=== PATIENT | male | born 1965 | race Caucasian/White ===

== ENCOUNTER 2024-03-31 16:48 | Outpatient (CLI) | payer MEDICARE, SELFPAY ==
[2024-03-31 15:57] LABS: Abs Immature Grans 0.01 10^3/uL (0.0-0.06); Absolute Basophil Count 0.03 10^3/uL (0.0-0.2); Absolute Eosinophil Count 0.16 10^3/uL (0.0-0.7); Absolute Lymphocyte Count 1.15 10^3/uL (1.2-3.4); Absolute Monocyte Count 0.83 10^3/uL (0.1-0.8); Absolute Neutrophil Count 4.81 10^3/uL (1.2-6.7); Basophils % 0.4 %; Eosinophils % 2.3 %; HCT 38.8 % (40.0-50.0); HGB 13.1 g/dL (13.5-17.5); Immature Grans % 0.1 %; Lymphocytes % 16.5 %; MCHC 33.8 % (32.0-36.0); MCV 92 fL (80-95); MPV 7.8 fL (8.0-11.0); Monocytes % 11.9 %; Neutrophils % 68.8 %; Platelet Count 436 10^3/uL (130-400); RBC 4.22 10^6/uL (4.36-5.78); RDW 12.3 % (11.8-14.1); RDW-SD 41.2 fL; WBC 6.99 10^3/uL (4.4-10.8)
[2024-03-31 16:17] LABS: ALT 13 U/L (16-63); AST 22 U/L (15-37); Albumin 3.2 g/dL (3.4-5.0); Alkaline Phosphatase 146 U/L (46-116); Anion Gap 4.6 mmol/L (3-11); BUN 7 mg/dL (7-18); Bilirubin, Total 0.27 mg/dL (0.2-1.0); CO2 31.4 mmol/L (21.0-32.0); CREATININE 0.9 mg/dL (0.70-1.30); Calcium 9.1 mg/dL (8.5-10.1); Chloride 97 mmol/L (98-107); FREE T4 0.84 ng/dL (0.76-1.46); Glucose 104 mg/dL (74-106); Potassium 4.5 mmol/L (3.5-5.1); Sodium 133 mmol/L (136-145); TSH 1.87 uIU/mL (0.36-3.74); Total Protein 6.9 g/dL (6.4-8.2)
--- OUTSIDE RECORDS SUMMARY | 2024-03-31 16:51 | XMS_ITS | Encounter Summary ---
Author Organization [facility] [place] [place] [address] Care Team Providers Care Conventions Assistant Name Role Phone Seema Francis Primary Care Provide r Encounter Details Date Type Department Care Team (Late Contact Info) Description 03/31/2024 3:00 PM EDT Clinical Support Hematology/Oncology at [address] [phone] Gifty Steward, JUAN MIGUEL [facility] [place] [address] Arrived Social History Tobacco Use Types Packs/Day Years Used Date Smoking Tobacco: Every Day Cigarettes 0.5 27 Smokeless Tobacco: Never Alcohol Use Standard Drinks/Week Comments Yes 42 (1 standard drink = 0.6 oz pu re alcohol) 6 beers/day IPV Inpatient Questions Answer Date Recorded Prevent Contact with Others Not on file 01/2024 Feels Threatened by Someone Not on file 01/2024 Feels Unsafe at Home Not on file 03/11/2024 Physical Signs of Abuse Present no 03/11/2024 Sex and Gender Information Value Date Recorded Sex Assigned at Not on file Gender Identity Not on file Sexual Orientation Straight 02/21/2021 6: 09 PM EDT documented as of this encounter Plan of Treatment Upcoming Encounters Date Type Department Care Team (Late Contact Info) Description 04/02/2024 1:30 PM EDT Scheduled View Only Radiation Oncology at [address] [phone] [facility] 04/02/2024 2:00 PM EDT Office Visit Radiation Oncology at [address] [phone] Deangelo Leal MD [facility] [place] [address] 04/07/2024 11:00 AM EST Office Visit Hematology/Oncology at [address] [phone] Wilman Rendon MD [address] [facility] [place] [facility] DR HEMATOLOGY & [place] [address] Genet Taylor APRN [facility] [place] [place] [address] 04/07/2024 12:30 PM EST Infusion Hematology Oncology at [address] [phone] 04/25/2024 11:00 AM EST Office [place] [phone] Nancy Garrison PA [facility] [place] [address] documented as of this encounter Visit Diagnoses Not on filedocumented in this encounter Care Teams Conventions Assistant Relationship Specialty Start Date End Date Seema Francis PA [address] [place] [phone] PCP - General Family Medicine 01/24/24 documented as of this encounter
--- OUTSIDE RECORDS SUMMARY | 2024-03-31 16:51 | XMS_ITS | Encounter Summary ---
Author Organization [facility] [place] [address] Care Team Providers Care Cloth Desizing Range Operator Chief Name Role Phone Seema Francis Primary Care Provide r Encounter Details Date Type Department Care Team (Latest Contact Info) Description 03/31/2024 Travel Social History Tobacco Use Types Packs/Day Years Used Date Smoking Tobacco: Every Day Cigarettes 0.5 27 Smokeless Tobacco: Never Alcohol Use Standard Drinks/Week Comments Yes 42 (1 standard drink = 0.6 oz pu re alcohol) 6 beers/day DH IPV Inpatient Questions Answer Date Recorded Prevent [...] Encounters Date Type Department Care Team (Late st Contact Info) Description 04/02/2024 1:30 PM EDT Scheduled View Only Radiation Oncology at [address] [phone] [facility] 04/02/2024 2:00 PM EDT Office Visit Radiation Oncology at [address] [phone] Deangelo Leal MD [facility] [place] [address] 04/07/2024 11:00 AM EST Office Visit Hematology/Oncology at [address] [phone] Wilman Rendon MD [address] [facility] HEMATOLOGY & [place] [address] Genet Taylor APRN [facility] [place] [address] 04/07/2024 12:30 PM EST Infusion Hematology Oncology at [address] [phone] 04/25/2024 11:00 AM EST Office [place] [phone] Nancy Garrison PA [facility] [place] [address] documented as of this encounter Visit Diagnoses Not on filedocumented in this encounter Care Teams Cloth Desizing Range Operator Chief Relationship Specialty Start Date End Date Seema Francis PA [address] [place] [phone] PCP - General Family Medicine 01/24/24 documented as of this encounter
--- OUTSIDE RECORDS SUMMARY | 2024-03-31 16:51 | XMS_ITS | Encounter Summary ---
[place] [address] Care Team Providers Care Marketing Business Analyst Name Role Phone Seema Francis Primary Care Provide r Reason for Referral * Diagnostic Test (Routine) - Closed Specialty Diagnoses / Procedures Referred By Contac t Referred To Contact Radiology Diagnoses Carcinoma of hypopharynx Procedures NM Agudelo PET CT Standard Plus Head and Neck NM PET CT Standard Plus Head and Neck Suman Lopez MD [facility] [place] [address] [place] [address] Referral ID Status Reason Start Date Expiration Date V isits Requested Visits Authorized [id number] Closed Specialty Service Requested 03/11/2024 09/09/2025 1 1 Reason for Visit * Diagnostic Test (Routine) - Closed Specialty Diagnoses / Procedures Referred By Contac t Referred To Contact Radiology Diagnoses Carcinoma of hypopharynx Procedures NM Agudelo PET CT Standard Plus Head and Neck NM PET CT Standard Plus Head and Neck Suman Lopez MD [facility] [place] [address] [place] [phone] Referral ID Status Reason Start Date Expiration Date V isits Requested Visits Authorized [id number] Closed Specialty Service Requested 03/11/2024 09/09/2025 1 1 Encounter Details Date Type Department Care Team (Latest Contact Info) Description 03/28/2024 2:51 PM EDT - 03/28/2024 11:59 PM EDT Hospital Encounter [place] [phone] Suman Lopez MD [facility] [place] [address] Carcinoma of hypopharynx Discharge Disposition: Home Social History Tobacco Use Types Packs/Day Years [...] PM EDT documented as of this encounter Medications at Time of Discharge Medication Sig Dispensed Refills Start Date End Date acetaminophen (Tylenol) 500 mg tablet Take 2 tablets by mouth every 6 hours as needed for Pain. 30 tablet 1 03/11/2024 timoloL (Timoptic) 0.5 % Drops Place 1 drop into both eyes daily. 09/13/2023 LORazepam (Ativan) 1 mg tablet Take 1 mg by mouth as needed (for seizures). 12/26/2023 carBAMazepine XR (Tegretol XR) 200 mg ER 12 hr tablet Take 200 mg by mouth daily. 01/15/2024 lamoTRIgine (LaMICtal) 200 mg Tablet Take 1 tablet by mouth daily. 60 tablet 11 02/22/2021 carBAMazepine (TEGretol) 200 mg Tablet Take 1 tablet by mouth 2 times daily. 60 tablet 11 02/22/2021 sod.chlorid/potassium chloride (THERMOTABS ORAL) Take 1 tablet by mouth 2 times daily. b complex vitamins Capsule Take 1 capsule by mouth twice a week. cholecalciferol, Vitamin D3, 25 mcg (1,000 unit) Capsule Take 1 capsule by mouth twice a week. oxymetazoline (Afrin) 0.05 % nasal spray 2 sprays by Nasal route 2 times daily as needed (nosebeed). [place] into each nostril. 30 mL 03/11/2024 03/31/2024 documented as of this encounter Plan of Treatment Upcoming Encounters Date Type Department Care Team (Late st Contact Info) Description 04/02/2024 1:30 PM EDT Scheduled View Only Radiation Oncology at [address] [phone] [facility] 04/02/2024 2:00 PM EDT Office Visit Radiation Oncology at [address] [phone] Deangelo Leal MD [facility] [place] [address] 04/07/2024 11:00 AM EST Office Visit Hematology/Oncology at [address] [phone] Wilman Rendon MD [address] [facility] HEMATOLOGY & [place] [address] Genet Taylor APRN [facility] [place] [address] 04/07/2024 12:30 PM EST Infusion Hematology Oncology at [address] [phone] 04/25/2024 11:00 AM EST Office [place] [phone] Nancy Garrison PA [facility] [place] [address] Pending Results Name Type Priority Associated Diagnoses Date /Time NM Agudelo PET CT Standard Plus Head and Neck Imaging Routine Carcinoma of hypopharynx 03/28/2024 2:56 PM EDT Scheduled Orders Name Type Priority Associated Diagnoses Orde r Schedule NM Agudelo PET CT Standard Plus Head and Neck Imaging Routine Carcinoma of hypopharynx 1 Occurrences starting 03/28/2024 until 03/28/2024 documented as of this encounter Visit Diagnoses Diagnosis 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, unspecified site documented in this encounter Administered Medications Inactive Administered Medications - up to 3 most recent administrations Medication Order MAR Action Action Date Dose Rate Site fludeoxyglucose (F-18) FDG injection 0-20 mCi 0-20 mCi, Intravenous, ONCE PRN, 1 dose, Starting on Sun03/28/24 at 1457, Until Sun03/28/24 at 1320, Per Protocol, Radiology Contrast, Routine Given 03/28/2024 1:20 PM EDT 14.7 mCi documented in this encounter Care Teams Marketing Business Analyst Relationship Specialty Start Date End Date Seema Francis PA [address] [place] [phone] PCP - General Family Medicine 01/24/24 documented as of this encounter
--- OUTSIDE RECORDS SUMMARY | 2024-03-31 16:51 | XMS_ITS | Encounter Summary ---
Author Organization [facility] [place] [address] Care Team Providers Care Depot Manager Name Role Phone Seema Francis Primary Care Provide r Encounter Details Date Type Department Care Team (Late Contact Info) Description 03/31/2024 Orders Only [place]ology [place] [phone] Wilman Rendon MD [address] [facility] H[place]ATOLOGY [place] [address] Tonsillar cancer Social History Tobacco Use Types Packs/Day Years [...] EDT Scheduled View Only Radiation Oncology at [address] [phone] Rad Nurse, [facility] 04/02/2024 2:00 PM EDT Office Visit Radiation Oncology at [address] [phone] Deangelo Leal MD [facility] [place] [address] 04/07/2024 11:00 AM EST Office Visit Hematology/Oncology at [address] [phone] Wilman Rendon MD [facility] [facility] DR HEMATOLOGY [place] [address] Genet Taylor APRN [facility] [place] [address] 04/07/2024 12:30 PM EST Infusion Hematology Oncology at [address] [phone] 04/25/2024 11:00 AM EST Office [place] [phone] Nancy Garrison PA [facility] [place] [address] Scheduled Orders Name Type Priority Associated Diagnoses Orde r Schedule Anatomical Pathology Additional Testing Pathology/Cytol ogy Routine Tonsillar cancer Ordered: 03/31/2024 documented as of this encounter Visit Diagnoses Diagnosis Tonsillar cancer Malignant neoplasm of tonsil documented in this encounter Care Teams Depot Manager Relationship Specialty Start Date End Date Seema Francis PA [address] [place] [phone] PCP - General Family Medicine 01/24/24 documented as of this encounter
--- OUTSIDE RECORDS SUMMARY | 2024-03-31 16:51 | XMS_ITS | Clinical Summary ---
Author Organization [facility] Address [facility] [place] [address] Care Team Providers Care Addiction Treatment Counselor Name Role Phone Seema Francis Primary Care Provide r Allergies Active Allergy Reactions Criticality Noted Date Comments Celecoxib 12/16/2020 hives Medications Medication Sig Dispensed Refills Start Date End Date Status sod.chlorid/potassi um chloride (THERMOTABS ORAL) Take 1 tablet by mouth 2 times daily. Active b complex vitamins Capsule Take 1 capsule by mouth twice a week. Active cholecalciferol, Vitamin D3, 25 mcg (1,000 unit) Capsule Take 1 capsule by mouth twice a week. Active lamoTRIgine (LaMICtal) 200 mg Tablet Take 1 tablet by mouth daily. 60 tablet 11 02/22/2021 Active carBAMazepine (TEGretol) 200 mg Tablet Take 1 tablet by mouth 2 times daily. 60 tablet 11 02/22/2021 Active timoloL (Timoptic) 0.5 % Drops Place 1 drop into both eyes daily. 09/13/2023 Active LORazepam (Ativan) 1 mg tablet Take 1 mg by mouth as needed (for seizures). 12/26/2023 Active carBAMazepine XR (Tegretol XR) 200 mg ER 12 hr tablet Take 200 mg by mouth daily. 01/15/2024 Active acetaminophen (Tylenol) 500 mg tablet Take 2 tablets by mouth every 6 hours as needed for Pain. 30 tablet 1 03/11/2024 Active Additional Information Patient taking differently: 500 mgOralDAILY, Reported on 03/31/2024 prochlorperazine (Compazine) 10 mg tablet Take 1 tablet by mouth every 6 hours as needed for Nausea. 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 Depression 12/21/2020 Chronic back pain 12/21/2020 Overview (12/21/2020): On disability Sciatica of right side 12/21/2020 Alcohol abuse 12/21/2020 Overview (12/21/2020): Still drinking Basal cell adenocarcinoma 12/21/2020 Encounters Date Type Department Care Team Description 03/31/2024 3:00 PM EDT Clinical Support Hematology/Oncolo gy at [address] [phone] Arrived 03/31/2024 2:00 PM EDT Office Visit Hematology/Oncolo gy at [address] [phone] Wilman Rendon MD 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/2024 Orders Only Hematology [place] [address] Wilman Rendon MD 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/2024 Travel 03/28/2024 2:51 PM EDT - 03/28/2024 11:59 PM EDT Hospital Encounter [place] [address] Suman Lopez MD Carcinoma of hypopharynx Discharge Disposition: Home 03/19/2024 2:30 PM EDT Office [place] [phone] Suman Lopez MD Squamous cell cancer of hypopharynx (Primary Dx); Orbital mass 03/19/2024 10:45 AM EDT - 03/19/2024 11:59 PM EDT Hospital [place] [phone] Suman Lopez MD Carcinoma of hypopharynx Discharge Disposition: Home 03/19/2024 Multidisciplinary Ca re Committee [place] [address] Leonarda Larry MD 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 03/19/2024 Travel 03/19/2024 Orders [place] [phone] Leonarda Larry MD 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 03/11/2024 11:17 AM EDT Anesthesia Event [place] [address] Sohn Stevenson MD Nelson, Mary E 03/11/2024 10:52 AM EDT - 03/11/2024 1:37 PM EDT Surgery [place] [address] Suman Lopez MD NASAL, SINUS ENDOSCOPY, TOTAL ETHMOIDECTOMY (WRVU 5.75) 03/11/2024 8:29 AM EDT - 03/11/2024 2:45 PM EDT Hospital Encounter [place] [address] Suman Lopez MD Orbital mass; Mass of sinus; Chronic maxillary sinusitis; Chronic ethmoidal sinusitis; Lesion of soft palate Discharge Disposition: Home 03/11/2024 Interpretation Only Radiology [address] [place] [address] [place] [id number] Unknown 03/11/2024 Orders [place] [address] Suman Lopez MD Carcinoma of hypopharynx 01/24/2024 Telephone [place] [address] Rin Rockwell 01/16/2024 2:00 PM EDT Office [place] [address] Suman Lopez MD Orbital mass (Primary Dx); Mass of sinus; Chronic maxillary sinusitis; Chronic ethmoidal sinusitis; Lesion of soft palate 01/16/2024 12:30 PM EDT Office Visit Ophthalmology at [place] [address] Melba Dillard MD Orbital mass; Diplopia; Maxillary sinus mass 01/16/2024 Travel 01/14/2024 11:55 AM EDT Ancillary Procedure Radiology Library at [facility] [place] [address] Suman Lopez MD Orbital mass; Mass of sinus 01/12/2024 Notes Only Otolaryngology at [place] [address] Leonarda Larry MD 01/11/2024 10:45 PM EDT Ancillary Procedure Radiology Library at [facility] [address] [place] [address] Jaylin Chapa MD 01/11/2024 2:50 PM EDT Ancillary Procedure Radiology Library at [facility] [address] [place] [address] Jaylin Chapa MD 01/11/2024 2:45 PM EDT Ancillary Procedure Radiology Library at [facility] [address] [place] [address] Jaylin Chapa MD 01/11/2024 Interpretation Only Radiology Library at [facility] [address] [place] [address] Jaylin Chapa MD 01/11/2024 Interpretation Only Radiology Library at [facility] [address] [place] [address] Jaylin Chapa MD from Last 3 Months Family History Medical History Relation Comments Glaucoma Father Macular Degeneration Neg Hx Retinal Detachment Neg Hx Relation Status Comments Father Social History Tobacco Use Types Packs/Day Years Used Date Smoking Tobacco: Every Day Cigarettes 0.5 27 Smokeless Tobacco: Never Tobacco Cessation:Ready to Q uit: Not Asked; Counseling Given: Not Answered Alcohol Use Standard Drinks/Week Comments Yes 42 [...] Orientation Straight 02/21/2021 6: 09 PM EDT Last Filed Vital Signs Vital Sign Reading Time Taken Comments Blood Pressure 115/79 03/31/2024 1:27 PM EDT Pulse 74 03/31/2024 1:27 PM EDT Temperature 36.7 ??C (98 ??F) 03/31/2024 1:27 PM EDT Respiratory Rate 16 03/31/2024 1:27 PM EDT Oxygen Saturation 100% 03/31/2024 1:27 PM EDT Inhaled Oxygen Concentration - - Weight 58.5 kg (129 lb) 03/31/2024 1:27 PM EDT Height 170.8 cm (5' 7.25) 03/31/2024 1:27 PM ED T Body Mass Index 20.05 03/31/2024 1:27 PM EDT Plan of Treatment Upcoming Encounters Date Type Department Care Team (Late st Contact Info) Description 04/02/2024 1:30 PM EDT Scheduled View Only Radiation Oncology at [address] [phone] [place] [facility] 04/02/2024 2:00 PM EDT Office Visit Radiation Oncology at [address] [phone] Deangelo Leal MD [facility] [place] [address] 04/07/2024 11:00 AM EST Office Visit Hematology/Oncology at [address] [phone] Wilman Rendon MD [facility] HEMATOLOGY [place] [address] Genet Taylor APRN [facility] [place] [address] 04/07/2024 12:30 PM EST Infusion Hematology Oncology at [address] [phone] 04/25/2024 11:00 AM EST Office [place] [address] Nancy Garrison, SCOTTY [facility] [place] [address] Health Maintenance Due Date Last Done Comments CT Colonography 1965 Colonoscopy 1965 Colorectal Cancer Screening 1965 FIT DNA 1965 FIT 1965 Sigmoidoscopy (10 year) with FIT yearly 1965 Sigmoidoscopy 1965 Pneumococcal Vaccine: At-Risk 5-64yrs (1 of 2 - PCV) 1 06/30/1970 HIV screen 1983 Hepatitis C Screening 1983 Lipid Screening 1983 Hepatitis B vaccine (0-59 yrs) (1) 1984 Tetanus/Diphtheria/Pertussis Vaccines (1 - Tdap) 04/30 Zoster vaccine (1 of 2) 2015 Advance Directive 2020 Covid-19 Vaccine (1 - season) 2024 Influenza (Flu) vaccine (1 o f 1 - Influenza standard series) 02/03/2024 Procedures Procedure Name Priority Date/Time Associated Diagnosis Comments CT CHEST W CONTRAST Routine 03/19/2024 1 1:47 AM EDT Carcinoma of hypopharynx CT NECK SOFT TISSUE W CONTRAST Routine 03/19/2024 11:47 AM EDT Carcinoma of hypopharynx CHROMOSOME ANALYSIS, ACQUIRED ([facility]) Routine 03/11/2024 2:40 PM EDT NASAL, SINUS ENDOSCOPY, REMOVE TISSUE MAXILLARY SINUS Routine 03/11/2024 1:21 PM EDT Orbital mass Mass of sinus Chronic maxillary sinusitis Chronic ethmoidal sinusitis Lesion of soft palate NASAL, SINUS ENDOSCOPY, TOTAL ETHMOIDECTOMY Routine 03/11/2024 1:21 PM EDT Orbital mass Mass of sinus Chronic maxillary sinusitis Chronic ethmoidal sinusitis Lesion of soft palate HPV DNA GENOTYPING (HIGH RISK) Routine 03/11/2024 1:10 PM EDT Orbital mass Mass of sinus Chronic maxillary sinusitis Chronic ethmoidal sinusitis Lesion of soft palate IMMUNOPHENOTYPING FLOW CYTOMETRY (TISSUE-LAB ONLY) Routine 03/11/2024 1:10 PM EDT Orbital mass Mass of sinus Chronic maxillary sinusitis Chronic ethmoidal sinusitis Lesion of soft palate SURGICAL PATHOLOGY Routine 03/11/2024 11 :44 AM EDT Orbital mass Mass of sinus Chronic maxillary sinusitis Chronic ethmoidal sinusitis Lesion of soft palate Nasal/Sinus Endoscopy Max Antrost W/Rmvl Tiss Max Sinus ([id number]) Yes 03/11/2024 11:18 AM EDT Orbital mass Mass of sinus Chronic maxillary sinusitis Chronic ethmoidal sinusitis Lesion of soft palate MODIFIER,STEALTH 2,KINEVO Yes 2023 11:18 AM EDT Orbital mass Mass of sinus Chronic maxillary sinusitis Chronic ethmoidal sinusitis Lesion of soft palate Stereotactic Cptr Asstd Px Cranial, Extradural ([id number]) Yes 03/11/2024 11:18 AM EDT Orbital mass Mass of sinus Chronic maxillary sinusitis Chronic ethmoidal sinusitis Lesion of soft palate Laryngoscopy Direct Operative W/Biopsy ([id number]) Yes 03/11/2024 11:18 AM EDT Orbital mass Mass of sinus Chronic maxillary sinusitis Chronic ethmoidal sinusitis Lesion of soft palate Nasal Scopy, Remv Totl Ethmoid ([id number]) Yes 03/11/2024 11:18 AM EDT Orbital mass Mass of sinus Chronic maxillary sinusitis Chronic ethmoidal sinusitis Lesion of soft palate U1RNP ANTIBODY Routine 03/11/2024 10:51 AM EDT Orbital mass SMPAULA) ANTIBODY Routine 03/11/2024 10 :51 AM EDT Orbital mass SCL-70 ANTIBODY (DH) Routine 03/11/2024 10:51 AM EDT Orbital mass SS-B/LA ANTIBODY (DH) Routine 03/11/2024 10:51 AM EDT Orbital mass SS-A/RO ANTIBODY (DH) Routine 03/11/2024 10:51 AM EDT Orbital mass JOAN 1 ANTIBODY Routine 03/11/2024 10:51 AM EDT Orbital mass CENTROMERE ANTIBODY (DH) Routine 024 10:51 AM EDT Orbital mass IGG SUBCLASSES Routine 03/11/2024 10:51 AM EDT Orbital mass CRP, ACUTE INFLAMMATION Routine 03/11/20 24 10:51 AM EDT Orbital mass SEDIMENTATION RATE Routine 03/11/2024 10 :51 AM EDT Orbital mass CYTOPLASMIC NEUTROPHILIC AB Routine 03/11/2024 10:51 AM EDT Orbital mass MYELOPEROXIDASE AB Routine 03/11/2024 10 :51 AM EDT Orbital mass PROTEINASE-3 ANTIBODY Routine 03/11/2024 10:51 AM EDT Orbital mass RHEUMATOID FACTOR, QUANT Routine 024 10:51 AM EDT Orbital mass ANTINUCLEAR ANTIBODY SCREEN (DH) Routine 03/11/2024 10:51 AM EDT Orbital mass STEREOTACTIC COMPUTER-ASSTD NAVIGATIONAL CRANIAL EXTRADURAL Routine 03/11/2024 10:14 AM EDT Orbital mass Mass of sinus Chronic maxillary sinusitis Chronic ethmoidal sinusitis Lesion of soft palate LARYNGOSCOPY, DIRECT, OPERATIVE, WITH BIOPSY Routine 03/11/2024 10:14 AM EDT Orbital mass Mass of sinus Chronic maxillary sinusitis Chronic ethmoidal sinusitis Lesion of soft palate DH OR ENDOSCOPY Routine 03/11/2024 REQUEST FOR 2ND READ MR HEAD Routine 01/14/2024 11:40 AM EDT Orbital mass Mass of sinus FILM LIBRARY STORAGE ONLY MR HEAD Routine 01/11/2024 10:41 PM EDT FILM LIBRARY STORAGE ONLY CT HEAD Routine 01/11/2024 2:50 PM EDT FILM LIBRARY STORAGE ONLY CT HEAD Routine 01/11/2024 2:45 PM EDT from Last 3 Months Results * CT Chest w Contrast (03/19/2024 11:47 AM EDT) WORKSTATION ID [id number] RAD Anatomical Region Laterality Modality Chest Computed Tomogra phy Impressions 03/19/2024 3:21 PM EDT No metastatic disease in the chest. I have personally reviewed the image(s) and the resident's interpretation and agree with the findings, Luz Harris MD at 03/19/2024 3:21 PM Thank you for letting us participate in the care of this patient. ??If you are a health care provider and have any questions regarding this report, please contact the number below. ??For patients who have questions please contact the health continuum of care manager that requested your imaging first. ? 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 Thin-section reconstructions as well as coronal and sagittal reformatted images were generated. COMPARISON: None available. FINDINGS: Pulmonary parenchyma: The lungs are well-inflated. No nodules, airspace or interstitial opacity Airways: No central endobronchial abnormality. Pleura: No effusion. Lymph nodes: No lymphadenopathy. 5 mm superior mediastinal lymph node is not pathologic based on size criteria. Heart and vasculature: Normal size of the heart. No pericardial effusion. Normal caliber of the thoracic aorta. Mild aortic valve calcifications. Other mediastinal structures: Small hiatal hernia. Upper abdomen: Subcentimeter segment 2 hypoattenuating hepatic lesion is too small to characterize. Skeletal structures: No acute or suspicious osseous lesions. Multilevel degenerative changes of the visualized spine with vacuum phenomenon, Schmorl's nodes and disc height loss. There are multiple old healed bilateral rib fractures. Procedure Note Luz Harris MD - 03/19/2024 EXAMINATION: CT CHEST W CONTRAST CLINICAL HISTORY: suspected hypopharyngeal SCC with celklrixvqqkwysW02.9, Malignant neoplasm of hypopharynx, unspecified TECHNIQUE: Helical CT of the chest after the intravenous administration of110.0 ml of OMNIPAQUE 350.00 mg/ml. Thin-section reconstructions as well ascoronal and sagittal reformatted images were generated. COMPARISON: None available. FINDINGS: Pulmonary parenchyma: The lungs are well-inflated. No nodules, airspaceor interstitial opacity Airways: No central endobronchial abnormality. Pleura: No effusion. Lymph nodes: No lymphadenopathy. 5 mm superior mediastinal lymph node isnot pathologic based on size criteria. Heart and vasculature: Normal size of the heart. No pericardial effusion.Normal caliber of the thoracic aorta. Mild aortic valve calcifications. Other mediastinal structures: Small hiatal hernia. Upper abdomen: Subcentimeter segment 2 hypoattenuating hepatic lesion istoo small to characterize. Skeletal structures: No acute or suspicious osseous lesions. Multilevel degenerative changes of the visualized spine with vacuum phenomenon,Schmorl's nodes and disc height loss. There are multiple old healed bilateral rib fractures. IMPRESSION No metastatic disease in the chest. I have personally reviewed the image(s) and the resident's interpretationand agree with the findings, Luz Harris MD at 03/19/2024 3:21 PM Thank you for letting us participate in the care of this patient. If youare a health care provider and have any questions regarding this report,please contact the number below. For patients who have questions please contactthe health continuum of care manager that requested your imaging first. Suman Lopez MD IMG CT ORDERABLES * CT Neck Soft Tissue w Contrast (Generic) (03/19/2024 11:47 AM EDT) WORKSTATION ID [id number] RAD Anatomical Region Laterality Modality Neck, Head Computed Tomogra phy Impressions 03/19/2024 8:22 PM EDT 1. ??Bilateral lymphadenopathy at the levels 1 and 2 and 3 errol stations with a right level 3/4 matted lymph node mass with extracapsular extension. 2. ??A right retropharyngeal lymph node versus endophytic right tonsillar tumor appears to encase the right internal carotid artery. 3. ??Mass involving the posterior left alveolar maxillary ridge extends into the maxillary sinus and left buccal space with posterior extension into the left retromolar trigone. 4. ??4.0 cm endophytic left tonsillar tumor appears to be contiguous with the mass described above involving the left buccal space. Infiltration into the medial pterygoid muscle is noted. 5. ??Separate mass involving the left nasal cavity and ethmoids with partial destruction of the anterior cranial fossa and spread into the adjacent orbit. 6. ??Hypopharyngeal mass is not identified on this study. 7. ??MRI of the face and neck is recommended for further characterization of the above described tumors. A PET/CT scan is also indicated. I have personally reviewed the image(s) and the resident's interpretation and agree with the findings, Kush Solis at 03/19/2024 8:22 PM Thank you for letting us participate in the care of this patient. ??If you are a health care provider and have any questions regarding this report, please contact the number below. ??For patients who have questions please contact the health continuum of care manager that requested your imaging first. ? 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 COMPARISON: CT head 01/11/2024 FINDINGS: Extensive bilateral lymphadenopathy is identified at the level 1B, levels 2A/B the and level 3. Some of these lymph nodes demonstrate central necrosis. The level 1B lymph nodes measure up to 2.1 cm in size. A left level 2A lymph node measures up to 2.1 cm in size and a matted lymph node mass spanning the right level 3/4 errol station measures up to 2.8 cm in long axis on the axial plane. This matted right level 3/4 errol mass has irregular shaggy margins indicating extracapsular extension. Abutment but no encasement of the common carotid artery. A right retropharyngeal errol mass versus endophytic tonsillar tumor at the C2 level appears to encase the right cervical internal carotid artery. An osseous destructive mass involving the left posterior maxillary alveolar ridge involves the pterygoid plate and posterior lateral wall of the left maxillary sinus with spread of tumor into the adjacent buccal space as well as the left retromolar trigone. The mandible is intact. This mass is contiguous with a large endophytic mass at the level of the left tonsillar pillar measuring up to 4.0 cm in size on the coronal plane. Infiltration into the medial pterygoid musculature is identified. Parapharyngeal fat is effaced. There is likely adjacent spread into the soft palate. The tongue base is spared. No hypopharyngeal mass is identified. The lung apices are clear. Mass in the left nasal cavity extends into the ethmoid air cells and partially destroys the anterior cranial fossa. Tumor spreads into the adjacent inferomedial orbit with intra and extraconal involvement. The inferior medial rectus muscles are encased.. This is more fully evaluated on the outside MRI of the face dated 01/11/2024. Abnormal soft tissue attenuation present within the left pterygopalatine palatine fossa. 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 COMPARISON: CT head 01/11/2024 FINDINGS: Extensive bilateral lymphadenopathy is identified at the qqoiw9I, levels 2A/B the and level 3. Some of these lymph nodes demonstratecentral necrosis. The level 1B lymph nodes measure up to 2.1 cm in size. A left level 2Alymph node measures up to 2.1 cm in size and a matted lymph node mass spanningthe right level 3/4 errol station measures up to 2.8 cm in long axis on theaxial plane. This matted right level 3/4 errol mass has irregular shaggymargins indicating extracapsular extension. Abutment but no encasement of thecommon carotid artery. A right retropharyngeal errol mass versus endophytic tonsillar tumor atthe C2 level appears to encase the right cervical internal carotid artery. An osseous destructive mass involving the left posterior maxillaryalveolar ridge involves the pterygoid plate and posterior lateral wall of theleft maxillary sinus with spread of tumor into the adjacent buccal space aswell as the left retromolar trigone. The mandible is intact. This mass iscontiguous with a large endophytic mass at the level of the left tonsillar pillarmeasuring up to 4.0 cm in size on the coronal plane. Infiltration into the medial pterygoid musculature is identified. Parapharyngeal fat is effaced. Thereis likely adjacent spread into the soft palate. The tongue base is spared. No hypopharyngeal mass is identified. The lung apices are clear. Mass in the left nasal cavity extends into the ethmoid air cells andpartially destroys the anterior cranial fossa. Tumor spreads into the adjacent inferomedial orbit with intra and extraconal involvement. The inferiormedial rectus muscles are encased.. This is more fully evaluated on the outsideMRI of the face dated 01/11/2024. Abnormal soft tissue attenuation present withinthe left pterygopalatine palatine fossa. IMPRESSION 1. Bilateral lymphadenopathy at the levels 1 and 2 and 3 errol stationswith a right level 3/4 matted lymph node mass with extracapsular extension. 2. A right retropharyngeal lymph node versus endophytic right tonsillartumor appears to encase the right internal carotid artery. 3. Mass involving the posterior left alveolar maxillary ridge extendsinto the maxillary sinus and left buccal space with posterior extension into theleft retromolar trigone. 4. 4.0 cm endophytic left tonsillar tumor appears to be contiguous withthe mass described above involving the left buccal space. Infiltration intothe medial pterygoid muscle is noted. 5. Separate mass involving the left nasal cavity and ethmoids withpartial destruction of the anterior cranial fossa and spread into the adjacentorbit. 6. Hypopharyngeal mass is not identified on this study. 7. MRI of the face and neck is recommended for further characterizationof the above described tumors. A PET/CT scan is also indicated. I have personally reviewed the image(s) and the resident's interpretationand agree with the findings, Kush Solis at 03/19/2024 8:22 PM Thank you for letting us participate in the care of this patient. If youare a health care provider and have any questions regarding this report,please contact the number below. For patients who have questions please contactthe health continuum of care manager that requested your imaging first. Suman Lopez MD IMG CT ORDERABLES * Chromosome Analysis, Acquired ([facility]) (03/11/2024 2:40 PM EDT) Chromosome, Leukemia/Lymph kelley ([facility]) See Scanned Result 03/20/2024 8:35 AM EDT [facility] Specimen Condition ([facility]) 03/20/2024 8:35 AM EDT [facility] Tissue (Solid Tumor) Non Blood Collection / Unknown 03/11/2024 2:40 PM EDT 03/11/2024 2:41 PM EDT Suman Lopez MD LAB SEND OUT ORDERAB LES REF [facility] [address] [place] [address] * Immunophenotyping Flow Cytometry (03/11/2024 1:10 PM EDT) Final Diagnosis - Too few events detected for meaningful immunophenotypic analysis(see Comment). 03/12/2024 2:01 PM EDT [facility] Signing Pathologist This result has been reviewed by Jose Alfredo Mireles DO on 03/12/24 at 2:01 PM. 03/12/2024 2:01 PM EDT [facility] Discussion Too few events were detected (<100 viable cells of interest, based on 3.9% viable cells) for meaningful analysis. Correlation with morphologic interpretation of the biopsy is recommended. 03/12/2024 2:01 PM EDT [facility] Lymphocyte % 29.7 % 03/12/2024 2:01 PM EDT [facility] CD3+ % 93.0 % 03/12/2024 2:01 PM EDT [facility] CD19+ % 0.0 % 03/12/2024 2:01 PM EDT [facility] CD56+ % 0.0 % 03/12/2024 2:01 PM EDT [facility] B-Cell:T-Cell Ratio 0.0 03/12/2024 2:01 PM EDT [facility] CD4:CD8 Ratio 0.0 03/12/2024 2:01 PM EDT [facility] LABORATORY Cell Viability % 3.9 % 03/12/2024 2:01 PM EDT [facility] Specimen Processing Cells for immunophenotypic analysis were derived from tissue. The following markers were assessed: CD2, CD3, CD4, CD5, CD7, CD8, CD10, CD19, CD45, CD56, kappa light chain, and lambda light chain. 03/12/2024 2:01 PM EDT [facility] Disclaimer Flow analysis is an ancillary study. A definite diagnosis requires correlation with the morphologic features of this process and if necessary, correlation with other ancillary studies like immunohistochemist ry, enzyme cytochemistry and/or cyto/molecular genetics. This test was developed and its performance characteristics determined by the Clinical Flow Cytometry Laboratory at [facility]. It has not been cleared or approved by the U.S. Food and Drug Administration. The FDA has determined that such clearance or approval is not necessary. This test is used for clinical purposes. It should not be regarded as investigational or for research. This laboratory is certified under the Clinical Laboratory Improvement Act of 1988 (CLIA) as qualified to perform high complexity clinical laboratory testing. 03/12/2024 2:01 PM EDT [facility] Clinical Information Orbital mass with sinonasal extension. 03/12/2024 2:01 PM EDT [facility] Tissue 03/11/2024 1:10 PM EDT 03/11/2024 1:25 PM EDT Suman Lopez MD HEMATOLOGY ORDERABLE S [facility] [place] [address] * HPV DNA Genotyping (High Risk) (03/11/2024 1:10 PM EDT) Indication for Study Invasive poorly differentiated squamous cell carcinoma 03/26/2024 5:39 PM EDT [facility] Specimen Tissue Case/Block ID [id number] 03/26/2024 5:39 PM [facility] HPV HR Genotype Result Negative for all high-risk HPV genotypes analyzed 03/26/2024 5:39 PM [facility] HPV HR Genotype Interpretation Results indicate that the submitted tissue contained none of the 14 HPV high-risk genotypes detected by this assay. Not all high-risk HPV genotypes are included in this test. 03/26/2024 5:39 PM [facility] HPV HR Genotype Methods Used Highly purified genomic DNA was extracted from a formalin fixed paraffin embedded tissue section after lysing of the cells. (Of note: in instances where the result was QNS, Genomic DNA was not analyzed or failed analysis.) HPV genotyping was performed using the StatAce MeltPro High-Risk HPV Genotyping Test that assays for the qualitative detection of 14 high-risk HPV genotypes in a variety of tissues. This test uses PCR followed by high-resolution melting curve analysis for the detection of 14 high-risk HPV types (16, 18, 31, 33, 35, 39, 45, 51, 52, 56, 58, 59, 66, and 68). High-risk HPV subtypes are differentiated in one single reaction with a sensitivity of 200 copies per reaction. LIMITATIONS AND DISCLAIMERS: Although unlikely, rare variants (known or unknown) have the potential to interfere with the performance of this test, producing false negative or false positive results. When genotyping results are not consistent with other clinical observations or test results, additional testing should be considered. 03/26/2024 5:39 PM [facility] Disclaimer This test was developed and its performance characteristics determined by The [facility] ([facility]) at [facility], as required by the Clinical Laboratory Improvement Amendments (CLIA'88) regulations. It has not been cleared or approved for specific uses by the U.S. Food and Drug Administration (FDA). The FDA has determined that such clearance or approval is not necessary. This test is used for clinical purposes. It should not be regarded as investigational or for research. Pursuant to the requirements of CLIA'88, this laboratory has established and verified the test's accuracy and precision. 03/26/2024 5:39 PM [facility] Tissue LEFT MAXILLARY SINUS STRUCTURE / Unknown 03/11/2024 1:10 PM EDT 03/18/2024 10:28 AM EDT Suman Lopez MD MOLECULAR ORDERABLES Performing Organization Address [facility]/State/ZIP Co de Phone Number [facility] [place] [address] * (ABNORMAL) Surgical Pathology (03/11/2024 11:44 AM EDT) Case Report Surgical Pathology Report ? Case: [id number] ? Authorizing Provider: ??Suman Lopez MD ? Collected: ? 03/11/2024 1144 ? Ordering Location: ? Main Operating Room [facility] ?? Received: ?03/11/2024 1320 ? [facility] ([facility] ? Hospital ? Pathologist: ? Michelle Trejo MD ? Specimens: ?? A) - Pharynx, Right medial hypopharyngeal mass ? B) - Pharynx, Right posterior pharyngeal wall ? C) - Soft Palate, Midline ? D) - Tonsil, Right ? E) - Sinus Contents, Left ? F) - Sinus, Maxillary, Left, Left maxillary sinus contents ? 03/18/2024 8:48 AM EDT [facility] Final Diagnosis A. Pharynx, right medial hypopharyngeal mass, biopsy: - Invasive squamous cell carcinoma, focally keratinizing, poorly differentiated. B. Pharynx, right posterior pharyngeal wall, biopsy: - Moderate keratinizing squamous dysplasia. C. Soft palate, midline, biopsy: - Severe squamous dysplasia. D. Tonsil, right, biopsy: - Invasive squamous cell carcinoma, [id number], keratinizing type. - Lymphovascular space invasion is present. E. Sinus contents, left, biopsy: - Invasive poorly differentiated squamous cell carcinoma. F. Sinus contexts, left maxillary, biopsy: - Invasive poorly differentiated squamous cell carcinoma. 03/18/2024 8:48 AM [facility] Discussion The tumor shows a range of morphologic features in the above specimens, ranging from moderately differentiated and keratinizing to morphologically poorly differentiated with clear cell features. Given the presence of p16 reactivity, genotyping for high-risk HPV is pending. 03/18/2024 8:48 AM [facility] Additional Studies Task ID IHC/Special Stains Result D1-2 p16 Positive E2-2 CK5 Positive E2-3 p40 Positive E2-4 NUT Negative 03/18/2024 8:48 AM [facility] Disclaimer(s) Formalin-fixed, paraffin-embedded tissue sections are studied using the polymer technique with appropriate positive and negative controls. These IHC studies provide the pathologist with adjunctive diagnostic information. Antibody specificity has been verified by testing antibodies on a series of in-house tissues with known immunohistochemical performance characteristics. The clinical interpretation of any antibody positive staining or its absence is evaluated within the context of clinical presentation, morphology, histopathological criteria and other diagnostic tests. 03/18/2024 8:48 AM [facility] Clinical Information A. Pharynx, Right medial hypopharyngeal mass Mass B. Pharynx, Right posterior pharyngeal wall Mass C. Soft Palate, Midline, Mass D. Tonsil, Right, Mass E. Sinus Contents, Left, Mass F. Sinus, Maxillary, Left, Left maxillary sinus contents Mass Rule out malignancy Left maxillary sinus contents for lymphoma workup 03/18/2024 8:48 AM [facility] Gross Description A. Pharynx, Right medial hypopharyngeal mass. A - Labeled/Fixative: Right medial hypopharyngeal mass, saline. Quantity/Size: Two, 0.6 cm. Tissue Description: Soft, white tissues. Sections/Processing: Submitted in toto in 1 cassette labeled A1. sns 03/11/2024 B. Pharynx, Right posterior pharyngeal wall. B - Labeled/Fixative: Right posterior pharyngeal wall, saline. Quantity/Size: Single, 0 cm. Tissue Description: Soft, pink-white tissue. Sections/Processing: Submitted in toto in 1 cassette labeled B1. sns C. Soft Palate, Midline, . C - Labeled/Fixative: Soft palate, midline, saline. Quantity/Size: Single, 0.5 cm. Tissue Description: Soft, white tissue. Sections/Processing: Submitted in toto in 1 cassette labeled C1. sns D. Tonsil, Right, . D - Labeled/Fixative: Tonsil, right, saline. Quantity/Size: Two, averagine 0.6 cm. Tissue Description: Soft, pink-whtie tissues. Sections/Processing: Submitted in toto in 1 cassette labeled D1. sns E. Sinus Contents, Left, . E - Labeled/Fixative: Sinus contents, left, saline. Quantity/Size: Multiple, ranging from 0.4-1.8 cm. Tissue Description: Soft, pink mucosal tissue fragments. Sections/Processing: Entirely submitted in 3 cassettes labeled E1-E3. sns F. Sinus, Maxillary, Left, Left maxillary sinus contents. F - Labeled/Fixative: Left maxillary sinus, fresh. Quantity/Size: Multiple, 3 x 2 x 1 cm in aggregate. Tissue Description: Soft pink mucosal tissue fragments. Sections/Processing: Tissue is submitted to flow cytometry. Tissue is submitted to cytogenetics. Entirely submitted in 5 cassettes labeled F1-F5. [facility] 03/18/2024 8:48 AM EDT [facility] Result Note THIS RESULT REQUIRES PHYSICIAN/KELLEE FOLLOW UP(A) 03/18/2024 8:48 AM EDT [facility] Tissue PHARYNGEAL STRUCTURE / Unknown 03/11/2024 11:44 AM EDT 03/11/2024 1:20 PM EDT Comment:Pre-op diagnosis: orbital mass with sinonasal extension, chronic ethmoid and maxillary sinusitis, lesion of soft palate Tissue specimen (specimen) PHARYNGEAL STRUCTURE / Unknown 03/11/2024 11:45 AM EDT 03/11/2024 1:20 PM EDT Comment:Pre-op diagnosis: orbital mass with sinonasal extension, chronic ethmoid and maxillary sinusitis, lesion of soft palate Tissue specimen (specimen) SOFT PALATE STRUCTURE / Unknown 03/11/2024 11:47 AM EDT 03/11/2024 1:20 PM EDT Comment:Pre-op diagnosis: orbital mass with sinonasal extension, chronic ethmoid and maxillary sinusitis, lesion of soft palate Tissue specimen (specimen) STRUCTURE OF RIGHT HALF OF ADENOID / Unknown 03/11/2024 11:55 AM EDT 03/11/2024 1:20 PM EDT Comment:Pre-op diagnosis: orbital mass with sinonasal extension, chronic ethmoid and maxillary sinusitis, lesion of soft palate Tissue specimen (specimen) SINUS CONTENTS / Unknown 03/11/2024 1:06 PM EDT 03/11/2024 1:25 PM EDT Comment:Pre-op diagnosis: orbital mass with sinonasal extension, chronic ethmoid and maxillary sinusitis, lesion of soft palate Tissue specimen (specimen) LEFT MAXILLARY SINUS STRUCTURE / Unknown 03/11/2024 1:10 PM EDT 03/11/2024 1:25 PM EDT Comment:Left maxillary sinus contents for lymphoma workup Suman Lopez MD PATHOLOGY/CYTOLOGY O JUAN MIGUELERAEMILY [facility] [place] [address] * Centromere Antibody (03/11/2024 10:51 AM EDT) Centromere Ab <0.40 <=10.00 unit/mL 03/13/2024 1:39 PM EDT [facility] Blood VENOUS BLOOD SPECIMEN / Unknown IP Care Team Draw / Unknown 03/11/2024 10:51 AM EDT 03/11/2024 10:56 AM EDT Narrative [facility] - 03/13/2024 1:39 PM EDT Reference Range: <7 - Negative ?? 7-10 - Equivocal ?? >10 - Positive ?? The CENP antibody result was generated using fluoroenzyme immunoassay on the Anjuke 250 analyzer. The semi-quantitative test is designed to detect IgG antibodies in human serum that are reactive to the Centromere B protein. Suman Lopez MD IMMUNOLOGY ORDERABLE S [facility] [place] [address] * Scl-70 Antibody (03/11/2024 10:51 AM EDT) Scl-70 Ab <0.60 <=10.00 unit/mL 03/13/2024 1:39 PM EDT [facility] Blood VENOUS BLOOD SPECIMEN / Unknown IP Care Team Draw / Unknown 03/11/2024 10:51 AM EDT 03/11/2024 10:56 AM EDT [facility] - 03/13/2024 1:39 PM EDT Reference Range: <7 - Negative 7-10 - Equivocal >10 - Positive The Scl-70 antibody result was generated using fluoroenzyme immunoassay on the Q1Mediadia 250 analyzer. The semi-quantitative test is designed to detect IgG antibodies in human serum that are reactive to the Scl-70 protein. Suman Lopez MD IMMUNOLOGY ORDERABLE S [facility] [place] [address] * U1RNP Antibody (03/11/2024 10:51 AM EDT) U1RNP Ab 0.80 <=10.00 unit/mL 03/13/2024 1:39 PM EDT [facility] Blood VENOUS BLOOD SPECIMEN / Unknown IP Care Team Draw / Unknown 03/11/2024 10:51 AM EDT 03/11/2024 10:56 AM EDT [facility] - 03/13/2024 1:39 PM EDT Reference Range: <5 - Negative ?? 5-10 - Equivocal ?? >10 - Positive ?? The U1RNP antibody result was generated using fluoroenzyme immunoassay on the Q1Mediadia 250 analyzer. The semi-quantitative test is designed to detect IgG antibodies in human serum that are reactive to the U1RNP protein. Suman Lopez MD IMMUNOLOGY ORDERABLE S Performing Organization Address City/[facility]/ZIP Co de Phone Number [facility] [place] [address] * SM(Palma) Antibody (03/11/2024 10:51 AM EDT) Sm(Palma) Ab <0.70 <=10.00 unit/mL 03/13/2024 1:39 PM EDT [facility] Blood VENOUS BLOOD SPECIMEN / Unknown IP Care Team Draw / Unknown 03/11/2024 10:51 AM EDT 03/11/2024 10:56 AM EDT [facility] - 03/13/2024 1:39 PM EDT Reference Range: <7 - Negative 7-10 - Equivocal ?? >10 - Positive ?? The Sm antibody result was generated using fluoroenzyme immunoassay on the Phadia 250 analyzer. The semi-quantitative test is designed to detect IgG antibodies in human serum that are reactive to the Sm protein. Suman Lopez MD IMMUNOLOGY ORDERABLE S Performing Organization Address City/[facility]/ZIP Co de Phone Number [facility] [place] [address] * SS-B/La Antibody (03/11/2024 10:51 AM EDT) SS-B/La Ab <0.40 <=10.00 unit/mL 03/13/2024 1:39 PM EDT [facility] Blood VENOUS BLOOD SPECIMEN / Unknown IP Care Team Draw / Unknown 03/11/2024 10:51 AM EDT 03/11/2024 10:56 AM EDT Narrative [facility] - 03/13/2024 1:39 PM EDT Reference Range: <7 - Negative 7-10 - Equivocal >10 - Positive The SS-B antibody result was generated using fluoroenzyme immunoassay on the Phadia 250 analyzer. The semi-quantitative test is designed to detect IgG antibodies in human serum that are reactive to the SS-B (La) protein. Suman Lopez MD IMMUNOLOGY ORDERABLE S Performing Organization Address [facility] Co de Phone Number [facility] [place] [address] * (ABNORMAL) SS-A/Ro Antibody (03/11/2024 10:51 AM EDT) SS-A/Ro Ab 37.00(H) <=10.00 unit/mL 03/13/2024 1:39 PM EDT [facility] Blood VENOUS BLOOD SPECIMEN / Unknown IP Care Team Draw / Unknown 03/11/2024 10:51 AM EDT 03/11/2024 10:56 AM EDT [facility] - 03/13/2024 1:39 PM EDT Reference Range: <7 - Negative 7-10 - Equivocal >10 - Positive The SS-A antibody result was generated using fluoroenzyme immunoassay on the Anjuke 250 analyzer. The semi-quantitative test is designed to detect IgG antibodies in human serum that are reactive to the SS-A (Ro) protein. Suman Lopez MD IMMUNOLOGY ORDERABLE S Performing Organization Address [facility] de Phone Number [facility] [place] [address] * (ABNORMAL) Antinuclear Antibody Screen (APARNA) (03/11/2024 10:51 AM EDT) APARNA Ab Screen Positive( A) Negative 03/12/2024 12:13 PM EDT [facility] dsDNA Ab <0.6 <=15.0 IU/mL 03/12/2024 12:13 PM EDT [facility] Blood VENOUS BLOOD SPECIMEN / Unknown IP Care Team Draw / Unknown 03/11/2024 10:51 AM EDT 03/11/2024 10:56 AM EDT [facility] - 03/12/2024 12:13 PM EDT dsDNA Ab Reference Range: <10 - Negative 10-15 - Equivocal >15 - Positive This antinuclear antibody (APARNA) screen is a qualitative test performed using a fluoroenzyme immunoassay on the Sincurua 250 analyzer. This screen is designed to detect antibodies to U1RNP SS-A/Ro SS-B/La centromere B Scl-70 Joan-1 and Sm(Palma) proteins in serum samples. Antibodies to other nuclear antibodies will not be detected with this assay. This APARNA screen is also performed in concert with a quantitative for IgG antibodies to dsDNA. The dsDNA antibody result was generated using a fluoroenzyme immunoassay on the Sincurua 250 analyzer. This quantitative test is designed to detect IgG antibodies directed against double stranded DNA in human serum. The presence of antibodies that recognize dsDNA is a highly specific marker for systemic lupus erythematosus. Suman Lopez MD IMMUNOLOGY ORDERABLE S Performing Organization Address [facility]/ZIP Co de Phone Number [facility] [place] [address] * (ABNORMAL) CRP, acute inflammation (03/11/2024 10:51 AM EDT) C-Reactive Protein 17.1(H) <=4.9 mg/L 03/11/2024 11:46 AM EDT [facility] Blood VENOUS BLOOD SPECIMEN / Unknown IP Care Team Draw / Unknown 03/11/2024 10:51 AM EDT 03/11/2024 10:56 AM EDT Suman Lopez MD CHEMISTRY ORDERABLES Performing Organization Address [facility]/ZIP Co de Phone Number [facility] [place] [address] * (ABNORMAL) IgG Subclasses (03/11/2024 10:51 AM EDT) IgG 983 700 - 1,600 mg/dL 03/13/2024 9:39 AM EDT [facility] IgG 1 523.8 382.4 - 928.6 mg/dL 03/13/2024 9:39 AM EDT [facility] IgG 2 196.9(L) 241.8 - 700.3 mg/dL 03/13/2024 9:39 AM EDT [facility] IgG 3 18.3(L) 21.8 - 176.1 mg/dL 03/13/2024 9:39 AM EDT [facility] IgG 4 57.1 3.9 - 86.4 mg/dL 03/13/2024 9:39 AM EDT [facility] Blood VENOUS BLOOD SPECIMEN / Unknown IP Care Team Draw / Unknown 03/11/2024 10:51 AM EDT 03/11/2024 10:56 AM EDT Suman Lopez MD IMMUNOLOGY ORDERABLE S Performing Organization Address City/[facility]/ZIP Co de Phone Number [facility] [place] [address] * Joan 1 Antibody (03/11/2024 10:51 AM EDT) Pathologist [facility] Joan-1 Ab <0.30 <=10.00 unit/mL 03/13/2024 1:39 PM EDT [facility] Blood VENOUS BLOOD SPECIMEN / Unknown IP Care Team Draw / Unknown 03/11/2024 10:51 AM EDT 03/11/2024 10:56 AM EDT Narrative [facility] - 03/13/2024 1:39 PM EDT Reference Range: <7 - Negative ?? 7-10 - Equivocal ?? >10 - Positive ?? The Joan-1 antibody result was generated using fluoroenzyme immunoassay on the Anjuke 250 analyzer. The semi-quantitative test is designed to detect IgG antibodies in human serum that are reactive to the Joan-1 protein. Suman Lopez MD LAB SEND OUT ORDERAB LES [facility] [place] [address] * Cytoplasmic Neutrophilic Ab (03/11/2024 10:51 AM EDT) C-Anca May Negative Negative 03/13/2024 2:33 PM EDT [facility] P-Anca May Negative Negative 03/13/2024 2:33 PM EDT [facility] Comment: Negative for cANCA and pANCA patterns by immunofluorescence. ADDITIONAL INFORMATION This test was developed and its performance characteristics determined by [facility] in a manner consistent with CLIA requirements. This test has not been cleared or approved by the U.S. Food and Drug Administration. Blood VENOUS BLOOD SPECIMEN / Unknown IP Care Team Draw / Unknown 03/11/2024 10:51 AM EDT 03/11/2024 11:04 AM EDT Narrative [facility] [place] - 03/13/2024 2:33 PM EDT Test Performed by: [place] [address] [employer] Nut Runner Operator: Bibi Kang Ph.D.; CLIA# [id number] Suman Lopez MD LAB SEND OUT ORDERAB LES Performing Organization Address [facility] Co de Phone Number [facility] [address] * Proteinase-3 Antibody (03/11/2024 10:51 AM EDT) Proteinase 3 Antibody <0.6 <2.0 U/mL 03/12/2024 12:13 PM EDT [facility] Blood VENOUS BLOOD SPECIMEN / Unknown IP Care Team Draw / Unknown 03/11/2024 10:51 AM EDT 03/11/2024 10:56 AM EDT Narrative [facility] - 03/12/2024 12:13 PM EDT Reference Range: <2.0 - Negative 2.0-3.0 - Equivocal >3.0 - Positive Suman Lopez MD IMMUNOLOGY ORDERABLE S Performing Organization Address City/[facility]/ZIP Co de Phone Number [facility] [place] [address] * Myeloperoxidase Ab (03/11/2024 10:51 AM EDT) Myeloperoxidase Antibody <0.2 <3.5 U/mL 03/12/2024 12:13 PM EDT [facility] Blood VENOUS BLOOD SPECIMEN / Unknown IP Care Team Draw / Unknown 03/11/2024 10:51 AM EDT 03/11/2024 10:56 AM EDT Narrative [facility] - 03/12/2024 12:13 PM EDT Reference Range: <3.5 - Negative 3.5-5.0 - Equivocal >5.0 - Positive Suman Lopez MD IMMUNOLOGY ORDERABLE S [facility] [place] [address] * Sedimentation rate (03/11/2024 10:51 AM EDT) Sedimentation Rate Automated 17 2 - 37 mm/hr 03/11/2024 1:48 PM EDT [facility] Blood VENOUS BLOOD SPECIMEN / Unknown IP Care Team Draw / Unknown 03/11/2024 10:51 AM EDT 03/11/2024 10:55 AM EDT Suman Lopez MD HEMATOLOGY ORDERABLE S Performing Organization Address City/[facility]/ZIP Co de Phone Number [facility] [place] [address] * Rheumatoid factor, quant (03/11/2024 10:51 AM EDT) Rheumatoid Factor 11 <=14 IU/mL 03/11/2024 3:25 PM EDT [facility] Blood VENOUS BLOOD SPECIMEN / Unknown IP Care Team Draw / Unknown 03/11/2024 10:51 AM EDT 03/11/2024 10:56 AM EDT Suman Lopez MD CHEMISTRY ORDERABLES Performing Organization Address City/[facility]/ZIP Co de Phone Number [facility] [place] [address] * DH OR Endoscopy (03/11/2024) Anatomical Region Laterality Modality Other 03/11/2024 Narrative 03/11/2024 12:00 AM EDT Photographs - Images Procedure Note Unknown - 03/13/2024 Photographs - Images Unknown EA IMAGES * Request for 2nd read MR Head (01/14/2024 11:40 AM EDT) WORKSTATION ID [id number] RAD Anatomical Region Laterality Modality SO Impressions 01/14/2024 12:07 PM EDT Large infiltrative mass of the left nasal cavity and orbit as described above. There is possible extension to the dura of the anterior cranial fossa. The appearance is most consistent with neoplasm, possibly lymphoma. The bulk of the abnormality makes an invasive fungal process less likely. Thank you for letting us participate in the care of this patient. ??If you are a health care provider and have any questions regarding this report, please contact the number below. ??For patients who have questions please contact the health continuum of care manager that requested your imaging first. ? Narrative 01/14/2024 12:07 PM EDT EXAMINATION: REQUEST FOR 2ND READ MR HEAD CLINICAL HISTORY: [facility], left periorbital mass; Sending Institution [facility], left periorbital mass; Date of exam [id number]; I believe a reinterpretation of this exam may alter care of Patient. Yes; [facility], left periorbital mass H05.89, Other disorders of orbit - J34.89, Other specified disorders of nose and nasal sinuses TECHNIQUE: MRI of the face is obtained before and after the administration of intravenous contrast. COMPARISON: CT face of 01/11/2024 FINDINGS: There is a bulky infiltrative mass centered at the lateral left nasal cavity and inferomedial left orbit. It shows largely homogeneous enhancement and is isointense to marie matter on T2-weighted images. The complex nasal component is mixed with areas of mucosal thickening and rim enhancing fluid. This component of the mass extends across midline anteriorly and up into the frontal sinuses. There is abnormal enhancement extending from the anterior cranial fossa along the dura along the inferior anterior left frontal lobe. This enhancement becomes focally thick along the intracranial aspect of the orbital roof. The orbital component lies inferior to the medial rectus muscle. It is indistinguishable in part from the inferior rectus and inferior oblique muscles. There is no involvement of the optic nerve. This component of the neoplasm extends into the left nasolacrimal duct. On the CT, osseous structures are relatively spared though clearly involved by neoplasm. The overall size of the neoplasm is 4.5 x 4.5 x 3.6 cm There is mucosal thickening in the bilateral maxillary antra. There is T1 isointense material, likely inspissated secretions and what may represent a trapped left posterior ethmoid air cell. The right orbit is of normal appearance. No signal abnormality is evident within the cerebral parenchyma itself. The pterygopalatine fossa and consumer electronic retail specialist space have normal appearances. No distant abnormal intracranial enhancement is present. Intracranial flow-voids are of normal appearance. Procedure Note Shad Iqbal MD - 01/14/2024 EXAMINATION: REQUEST FOR 2ND READ MR HEAD CLINICAL HISTORY: [facility], left periorbital mass; Sending Institution [facility], left periorbital mass; Date of [id number]; I believe a reinterpretation of this exam may alter care of Patient.Yes; [facility], left periorbital mass H05.89, Other disorders of orbit - J34.89, Other specified disorders ofnose and nasal sinuses TECHNIQUE: MRI of the face is obtained before and after the administration ofintravenous contrast. COMPARISON: CT face of 01/11/2024 FINDINGS: There is a bulky infiltrative mass centered at the lateral left nasalcavity and inferomedial left orbit. It shows largely homogeneous enhancement and is isointense to marie matter on T2-weighted images. The complex nasalcomponent is mixed with areas of mucosal thickening and rim enhancing fluid. Thiscomponent of the mass extends across midline anteriorly and up into the frontalsinuses. There is abnormal enhancement extending from the anterior cranial fossaalong the dura along the inferior anterior left frontal lobe. This enhancementbecomes focally thick along the intracranial aspect of the orbital roof. Theorbital component lies inferior to the medial rectus muscle. It isindistinguishable in part from the inferior rectus and inferior oblique muscles. There is no involvement of the optic nerve. This component of the neoplasm extendsinto the left nasolacrimal duct. On the CT, osseous structures are relativelyspared though clearly involved by neoplasm. The overall size of the neoplasm is 4.5 x 4.5 x 3.6 cm There is mucosal thickening in the bilateral maxillary antra. There isT1 isointense material, likely inspissated secretions and what may representa trapped left posterior ethmoid air cell. The right orbit is of normal appearance. No signal abnormality is evident within the cerebralparenchyma itself. The pterygopalatine fossa and consumer electronic retail specialist space have normal appearances.No distant abnormal intracranial enhancement is present. Intracranialflow-voids are of normal appearance. IMPRESSION Large infiltrative mass of the left nasal cavity and orbit as describedabove. There is possible extension to the dura of the anterior cranial fossa.The appearance is most consistent with neoplasm, possibly lymphoma. The bulkof the abnormality makes an invasive fungal process less likely. Thank you for letting us participate in the care of this patient. If youare a health care provider and have any questions regarding this report,please contact the number below. For patients who have questions please contactthe health continuum of care manager that requested your imaging first. Suman Lopez MD IMG OUTSIDE INTERPRE TATION ORDERABLES * Film Library- Storage Only MR Head (01/11/2024 10:41 PM EDT) Narrative RAD - 01/11/2024 10:41 PM EDT This exam is auto-finalizing. It's purpose is for storage only. Jaylin Chapa MD IMG FILM LIBRARY ORD ERABLES Performing Organization Address City/[facility]/ZIP Co de Phone Number [place], [place] * Film Library- Storage Only CT Head (01/11/2024 2:50 PM EDT) Only the most recent of2 resultswithin the time period is included. 01/11/2024 10:3 9 PM EDT Narrative RAD - 01/11/2024 10:39 PM EDT This exam is auto-finalizing. It's purpose is for storage only. Jaylin Chapa MD IMG FILM LIBRARY ORD ERABLES Performing Organization Address [facility] Co de Phone Number [place], [place] from Last 3 Months Care Teams Addiction Treatment Counselor Relationship Specialty Start Date End Date Seema Francis PA [address] [place] [phone] PCP - General Family Medicine 01/24/24
--- OUTSIDE RECORDS SUMMARY | 2024-03-31 16:51 | XMS_ITS | Encounter Summary ---
Author Organization [facility] [place] [address] Care Team Providers Care Commercial Director Name Role Phone Seema Francis Primary Care Provide r Reason for Referral * Diagnostic Test (Routine) - New Request Specialty Diagnoses / Procedures Referred By Otto perry Referred To Contact Radiology Diagnoses Tonsillar cancer Procedures MRI Face wwo Contrast Wilman Rendon MD [address] [place] [address] DR HEMATOLOGY [place] [address] Referral ID Status Reason Start Date Expiration Date Visits Requested Visits Authorized [id number] New Request Specialty Service Requested 09/29/2025 1 1 Reason for Visit * Consultation (Routine) - Closed Specialty Diagnoses / Procedures Referred By Otto perry Referred To Contact Hematology and Oncology Diagnoses 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 Suman Lopez MD [facility] [place] [address] [facility] Hem Onc Infusion [address] [place] [phone] Referral ID Status Reason Start Date Expiration Date V isits Requested Visits Authorized [id number] Closed Consult, Test & Treat 03/19/2024 03/19/2025 1 1 Encounter Details Date Type Department Care Team (Late st Contact Info) Description 03/31/2024 2:00 PM EDT Office Visit Hematology/Oncology at [address] [phone] Wilman Rendon MD [address] [facility] HEMATOLOGY [facility] [place] [address] Tonsillar cancer Social History Tobacco Use Types [...] PM EDT documented as of this encounter Last Filed Vital Signs Vital Sign Reading [...] Mass Index 20.05 03/31/2024 1:27 PM EDT documented in this encounter Progress Notes * Gwen Yepez RN - 03/31/2024 2:[address] Patient Medical Oncology Note SOCIAL ASSESSMENT: See EDH social assessment information entered. 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 [ x ] yes [ ] no Local [facility]: [facility] FUNCTIONAL SCREENING: Balance difficulty: [ ]no [ x]yes uses a cane and walker at times At risk for fall: [ ] no [ x] yes If yes, actions implemented to prevent fall. Patient/family instructed to avoid independent ambulation. Use wheelchair and ask for assistance of staff while in the clinic. ADL [ x ] no limits [ ] needs dressing assistance [ ] needs meal assistance Assistive device:[ ]none [ x ]cane [ x]walker [ ]wheelchair [ ]other: explain PAIN ASSESSMENT: [8 ] out of 10 right side of face due to long ride Location: Description: [ ] Dull [ ] Sharp [ ] Burning [ ] Throbbing [ ] Radiating [ ] Continuous [ ] Intermittent Aggravating Factors: [ ] Movement [ ] Position [ ] Immobility [ ] Other Alleviating Factors: [ ] Medication [ ] Positioning [ ] Other Current Pain Management Plan: [ ] Satisfied [ ] Not satisfied LEARNING STYLE: Learning Needs Assessment up to date (yearly) [ ] TEACHING: __ NCI ???Chemotherapy and You?? and folder given __ Specific chemotherapy literature provided and reviewed with patient VASCULAR ACCESS ASSESSMENT: getting chemo? [ ]yes [ ]no Need port? 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 Pharynx, right medial hypopharyngeal mass, biopsy: - Invasive squamous cell carcinoma, focally keratinizing, poorly differentiated. B. Pharynx, right posterior pharyngeal wall, biopsy: - Moderate keratinizing squamous dysplasia. C. Soft palate, midline, biopsy: - Severe squamous dysplasia. D. Tonsil, right, biopsy: - Invasive squamous cell carcinoma, [id number], keratinizing type. - Lymphovascular space invasion is present. E. Sinus contents, left, biopsy: - Invasive poorly differentiated squamous cell carcinoma. F. Sinus contexts, left maxillary, biopsy: - Invasive poorly differentiated squamous cell carcinoma. CURRENT TX: Anticipated a induction a combination chemotherapy immunotherapy Formal radiation oncology consultation pending ONCOLOGIC HX: 4 to 6-month history of a diplopia; left eye paresis, loss of smell, headaches In [place], [place], MRI: Extensive paranasal sinus disease with extension into the left orbit, extendingmass affect upon the globe and possible invasion into inferior rectus muscle muscle Formal ENT evaluation and direct laryngoscopy: Right hypopharyngeal lesion and oral cavity midline soft palatal lesion, right palatine tonsillar ulcer; friable tumor within the left nasal cavity along middle meatus, ethmoid infundibulum, roof of the left maxillary sinus and ethmoid cavity HPI: This is a 59-year-old male patient with a history of prior recurrent seizure, strong hx of tobacco and ethanol use, past history of generalized itching seizure, currently on 2 epileptics with lorazepam for breakthrough seizures, who presented with diplopia, abnormal MRI; on MRI of the brain, there are markedly abnormal findings and there is a dominant left nasal cavity mass lesion invading the orbit with possible extension to the dura and anterior cranial fossa. There is extensive metastatic disease to the neck. Review of the PET scan is demonstrating extensively metastatic disease to the L and R neck. The patient was seen by Dr. Ortiz ENT: The patient underwent direct laryngoscopy and biopsies. There was a right hypopharyngeal lesion in the oral cavity midline soft palatal lesion and right palatine tonsillar ulcer with exophytic mass. There was friable tumor within the left nasal cavity, ethmoid infundibulum, roof of the left maxillary sinus and ethmoid cavity. Biopsy was positive for invasive squamous cell carcinoma, poorly differentiated. The sites biopsy with the right pharynx right posterior pharyngeal wall the right tonsil sinus contents on the left. Of note, the tumor was p16 positive and negative for high risk genotype. Patient presents today with chief complaint of neck pain but also right sided headache. He admits to persistent diplopia. He endorses a seizure last week, abrogated with breakthrough lorazepam REVIEW OF SYSTEMS: Constitutional: MEYERS, diplopia, weith loss Eyes: Diplopia for 4 to 6 months ENT: Loss of smell; a new dysphagia Cardiovascular: Negative Respiratory: Negative Gastrointestinal: Negative, Genitourinary: Negative Musculoskeletal: No new joint pain Skin: Negative Neurological: Left diplopia Psychiatric: stable mood PAST MEDICAL HISTORY: Past Medical History: Diagnosis Date Arthritis Glaucoma Seizures Past Surgical History: Procedure Laterality Date PRO LARYNGOSCOPY DIRECT OPERATIVE W/BIOPSY N/A 03/11/2024 LARYNGOSCOPY, DIRECT, OPERATIVE, WITH BIOPSY (WRVU 3.16) performed by Suman Lopez MD at [facility] MAIN OR PRO NASAL SCOPY, REMV TOTL ETHMOID Left 03/11/2024 NASAL, SINUS ENDOSCOPY, TOTAL ETHMOIDECTOMY (WRVU 5.75) performed by Suman Lopez MD at [facility] MAIN OR PRO NASAL/SINUS ENDOSCOPY MAX ANTROST W/RMVL TISS MAX SINUS Left 03/11/2024 NASAL, SINUS ENDOSCOPY, REMOVE TISSUE MAXILLARY SINUS (WRVU 4.68) performed by Suman Lopez MD at [facility] MAIN OR PRO STEREOTACTIC CPTR ASSTD PX CRANIAL, EXTRADURAL N/A 03/11/2024 STEREOTACTIC COMPUTER-ASSTD NAVIGATIONAL CRANIAL EXTRADURAL (WRVU 3.18) performed by Suman Lopez MD at [facility] MAIN OR MEDS: LORazepam, acetaminophen, b complex vitamins, carBAMazepine, carBAMazepine XR, cholecalciferol (Vitamin D3), lamoTRIgine, prochlorperazine, sod.chlorid/potassium chloride, and timoloL ALLERGY: Allergies Allergen Reactions Celebrex [Celecoxib] hives FAMILY HX: Family History Problem Relation Age of Onset Glaucoma Father Macular Degeneration Neg Hx Retinal Detachment Neg Hx SOCIAL HX: ETOH: Daily ethanol Smoking: Tobacco half a pack per year Social History Socioeconomic History Marital status: Spouse name: Not on file Number of children: Not on file Years of education: Not on file Highest education level: Not on file Occupational History Not on file Tobacco Use Smoking status: Every Day Current packs/day: 0.50 Average packs/day: 0.5 packs/day for 27.0 years (13.5 ttl pk-yrs) Types: Cigarettes Smokeless tobacco: Never Vaping Use Vaping status: Every Day Substance and Sexual Activity Alcohol use: Yes Alcohol/week: 42.0 standard drinks of alcohol Types: 42 Cans of beer per week Comment: 6 beers/day Drug use: Yes Types: Marijuana Comment: smoking daily Sexual activity: Not on file Other Topics Concern Not on file Social History Narrative Not on file Social Determinants of Health Financial Resource Strain: Low Risk (03/31/2024) Overall Financial Resource Strain (CARDIA) Difficulty of Paying Living Expenses: Not very hard Food Insecurity: No Food Insecurity (03/31/2024) Hunger Vital Sign Worried About Running Out of Food in the Last Year: Never true Ran Out of Food in the Last Year: Never true Transportation Needs: No Transportation Needs (03/31/2024) PRAPARE - Transportation Lack of Transportation (Medical): No Lack of Transportation (Non-Medical): No Physical Activity: Not on file Intimate Partner Violence: Unknown (03/11/2024) IPV Inpatient Questions Prevent Contact with Others: Not on file Feels Threatened by Someone: Not on file Feels Unsafe at Home: Not on file Physical Signs of Abuse Present: no Housing Stability: Low Risk (03/31/2024) Housing Stability Vital Sign Unable to Pay for Housing in the Last Year: No Number of Times Moved in the Last Year: 0 Homeless in the Last Year: No PHYSICAL EXAM: PS=2 General: not in acute distress. in good mood and spirits BP 115/79 (Patient Position: Sitting) Pulse 74 Temp 36.7 ??C (98 ??F) (Temporal) Resp 16 Ht170.8 cm (5' 7.25) Wt 58.5 kg (129 lb) SpO2 100% BMI 20.05 kg/m?? Eyes: Left eye injected, Oral: Neck: Bulky bilateral adenopathy; abnormal adenopathy in levels 3 and 5. Lungs: Bilaterally course, distant Heart: Regular rate and rhythm. Abdomen: Soft, no tenderness, no mass, normal active bowel sounds. Extremities: No edema. (+) clubbing Skin: No rash Neuro: Left right abducens paresis, diplopia LABS: Labs CBC CMP pending IMAGING STUDIES: CT Neck Profuse bilateral adenopathy, right worse than left IMPRESSION 1. Bilateral lymphadenopathy at the levels [...] extension into the left retromolar trigone. 4. 4.0 cm endophytic left tonsillar tumor appears to be contiguous with the mass described above involving the left buccal space. Infiltration into the medial pterygoid muscle is noted. 5. Separate mass involving the left nasal cavity and ethmoids with partial destruction of the anterior cranial fossa and spread into the adjacent orbit. 6. Hypopharyngeal mass is not identified on this study. 7. MRI of the face and neck is recommended for further characterization of the above described tumors. A PET/CT scan is also indicated. CT Chest Without metastatic disease 2. PET images reviewed 3. 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 The patient underwent ENT evaluation including direct laryngoscopy and biopsies of multiple sites as summarized above. It appears to me that bilateral tonsillar beds normal, bi opsies were positive in the right pharynx of the right tonsil as well as the sinus contents demonstrating invasive squamous cell carcinoma, p16 positive, keratinizing type. There was lymphovascular invasion present. Of note, interestingly the HPV genotyping was and on high risk a HPV virus. I reviewed all of the above findings including I reviewed the medical records, imaging findings, pathology as well as clinical examination today with the patient patient's spouse in great detail and a 60-minute visit. Additional 60 minutes were spent to review patient medical record as well as imaging. I reviewed with him the series finding of an at least stage III HPV positive head and neck cancer with very serious local extension into the left orbit but also pain to the skull base. I will be veryconcerned about further interim progression into the skull base even though there does not appear to be any rhinorrhea or any additional cranial nerve deficits at this time. Nonetheless, I would favor obtaining an MRI of the face as it had been previously recommended. I discussed with the patient medical treatment options which would include induction chemotherapy either with TPF or with docetaxel carboplatin and pembrolizumab. I certainly would want to avoid any triggers for his seizures. I reviewed possible benefits which include responses in the primary as well as metastatic implants as well as the high risk local extension sites. With induction chemotherapy such as immune checkpoint habit or docetaxel and carboplatin response rates can be seen between 36and 43% depending on the CPS score. I discussed with the patient the possibility of normal responseand progression. We also discussed that the patient will have a formal radiation oncology consultation with Dr. Leal. We are eagerly awaiting his assessment and recommendations. At the same time we will be planning for induction combination treatments as summarized. I also will be obtaining standard laboratory testing with CBC CMP magnesium, as well as TSH, T4, which is a patient of systemic treatments. We also discussed best supportive care measures, psychosocial support and in preparation for complication somewhat with which can be serious can be life-threatening. The patient and his had several questions which were answered to their apparent satisfaction Emotional support and encouragement was provided Plan: Order external MRI of the head/MRI of the face Laboratory testing CBC CMP T4 TSH Planning for a induction systemic treatment with docetaxel 75 mg/m??, carboplatin AUC of 5 pembrolizumab 200 mg every 3 weeks Await recommendation by radiation oncology colleagues, Dr. Leal this week f/u in 2 weeks We will follow up the patient in weeks. Pt was instructed to call our clinic with any new symptom or any questions. Thank you very much for referring this nice patient to our medical oncology clinic. Please find my recommendation in above note. Wilman Rendon MD documented in this encounter Plan of Treatment Upcoming Encounters Date Type Department Care Team (Late st Contact Info) Description 04/02/2024 1:30 PM EDT Scheduled View Only Radiation Oncology at [address] [phone] [facility] 04/02/2024 2:00 PM EDT Office Visit Radiation Oncology at [address] [phone] Deangelo Leal MD [facility] [place] [address] 04/07/2024 11:00 AM EST Office Visit Hematology/Oncology at [address] [phone] Wilman Rendon MD [address] [place] [address] DR HEMATOLOGY & [place] [address] Genet Taylor APRN [facility] [place] [address] 04/07/2024 12:30 PM EST Infusion Hematology Oncology at [address] [phone] 04/25/2024 11:00 AM EST Office [place] [phone] Nancy Garrison PA [facility] [place] [address] Scheduled Orders Name Type Priority Associated Diagnoses Orde r Schedule CBC (with Diff) Lab STAT Tonsillar cancer As Needed for 20 Occurrences starting 03/31/2024 until 03/31/2025 Comprehensive metabolic panel Non-fasting Lab STAT Tonsillar cancer As Needed for 20 Occurrences starting 03/31/2024 until 03/31/2025 T4, free Lab Routine Tonsillar cancer As Needed for 20 Occurrences starting 03/31/2024 until 03/31/2025 TSH Lab Routine Tonsillar cancer As Needed for 20 Occurrences starting 03/31/2024 until 03/31/2025 MRI Face wwo Contrast Imaging Routine Tonsillar cancer Expected: 04/01/2024, Expires: 10/01/2024 documented as of this encounter Visit Diagnoses Diagnosis Tonsillar cancer Malignant neoplasm of tonsil documented in this encounter Care Teams Commercial Director Relationship Specialty Start Date End Date Seema Francis PA [address] [place] [phone] PCP - General Family Medicine 01/24/24 documented as of this encounter
--- OUTSIDE RECORDS SUMMARY | 2024-03-31 16:51 | XMS_ITS | Encounter Summary ---
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 Procedures MRI Soft Tissue Neck wwo Contrast Leonarda Larry MD [facility] [address] [place] [address] Referral ID Status Reason Start Date Expiration Date Visits Requested Visits Authorized [id number] New Request Specialty Service Requested 09/18/2025 1 1 * Diagnostic Test (Routine) - New Request Specialty Diagnoses / Procedures Referred By Contac t Referred To Contact Radiology Diagnoses 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 Procedures MRI Face wwo Contrast Leonarda Larry MD [facility] [address] [place] [address] Referral ID Status Reason Start Date Expiration Date Visits Requested Visits Authorized [id number] New Request Specialty Service Requested 4 09/18/2025 1 1 Encounter Details Date Type Department Care Team (Latest Contact Info) Description 03/19/2024 Multidisciplinary Ca re Committee [place] [address] Leonarda Larry MD [facility] [address] 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 Head and Neck Tumor Board Note Pathology Review Site/Stage Left Orbit SCCA abutting dura Left maxillary sinus SCCa abutting anterior cranial fossa extending and eroding pterygoid plates Right tonsil HPV+ SCCA involving carotid Hypopharyngeal SCCa Surgery and date Robi Mccall is a 58 y.o. male with 13 pack year history of tobacco use and significant ETOH use presenting with left orbital mass, who went to the OR for planned biopsies and direct laryngoscopy. 03/11/2024 FINDINGS: Direct laryngoscopy with biopsy of right hypopharyngeal lesions and oral cavity midline soft palatal lesion, right palatine tonsil ulcer Exophytic mass biopsied and based along the medial aspect of the right pyriform sinus extending to the apex as well as submucosal spread along postcricoid region past midline to the left pyriform sinus. No apparent fixation of the larynx to the posterior pharynx. No endolaryngeal involvement. Focal area of leukoplakia along right posterior hypopharynx, biopsied. Focal area of leukoplakia along midline soft palate, biopsied. Right palatine tonsil ulcer biopsied Friable tumor within the left nasal cavity along middle meatus, ethmoid infundibulum, roof of the left maxillary sinus and ethmoid cavity biopsied. The decision was made not to proceed with left orbital decompression/biopsy given the gross disease biopsied within the paranasal sinuses. CT Neck Profuse bilateral adenopathy, right worse [...] also indicated. CT Chest Without metastatic disease Pathology A. Pharynx, right medial hypopharyngeal mass, biopsy: - Invasive squamous cell carcinoma, focally keratinizing, poorly differentiated. B. Pharynx, right posterior pharyngeal wall, biopsy: - Moderate keratinizing squamous dysplasia. C. Soft palate, midline, biopsy: - Severe squamous dysplasia. D. Tonsil, right, biopsy: - Invasive squamous cell carcinoma, [id number], keratinizing type. - Lymphovascular space invasion is present. E. Sinus contents, left, biopsy: - Invasive poorly differentiated squamous cell carcinoma. F. Sinus contexts, left maxillary, biopsy: - Invasive poorly differentiated squamous cell carcinoma. Tumor Board Recs Plan for referral to medical oncology to discuss neoadjuvant and immunotherapy, there may be a role for radiation pending response to initial induction. Update MRI Face and Neck * (Based on past studies and the information available at the time of presentation) Specific treatment to be undertaken must ultimaly be determined on an individual basis by the patient and those invoved in her/his treatment) documented in this encounter Plan of Treatment Upcoming Encounters Date Type Department Care Team (Late st Contact Info) Description 04/02/2024 1:30 PM EDT Scheduled View Only Radiation Oncology at [address] [phone] [facility] 04/02/2024 2:00 PM EDT Office Visit Radiation Oncology at [address] [phone] Deangelo Leal MD [facility] [place] [address] 04/07/2024 11:00 AM EST Office Visit Hematology/Oncology at [address] [phone] Wilman Rendon MD [address] [facility] HEMATOLOGY & [place] [address] Genet Taylor APRN [facility] [place] [address] 04/07/2024 12:30 PM EST Infusion Hematology Oncology at [address] [phone] 04/25/2024 11:00 AM EST Office [place] [address] Nancy Garrison PA [facility] [place] [address] Scheduled Orders Name Type Priority Associated Diagnoses Orde r Schedule MRI Face wwo Contrast Imaging Routine 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
--- OUTSIDE RECORDS SUMMARY | 2024-03-31 16:51 | XMS_ITS ---
Author Organization [facility] [place] [address] Care Team Providers Care Music Cataloguer Name Role Phone Seema Francis Primary Care Provide r Active Problems Problem Noted Date Diagnosed Date 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/2024 Depression 12/21/2020 Chronic back pain 12/21/2020 Overview (12/21/2020): On disability Sciatica of right side 12/21/2020 Alcohol abuse 12/21/2020 Overview (12/21/2020): Still drinking Basal cell adenocarcinoma 12/21/2020 Current Oncology Plans [facility] ONC HEAD AND NECK CANCER - CARBOplatin / DOCEtaxeL / PEMBROLIZUMAB* Plan Start Date:04/07/2024 Plan Provider:Wilman Rendon MD Linked Problems Tonsillar cancer Treatment Medications Current Day (Day 1 , Cycle 1 - Planned for 04/07/2024) Next Day (Day 1, Cycle 2 - Planned for 04/28/2024) CARBOplatin (Paraplatin) in 150 mL infusionDOCEtaxeL (Taxotere) Solutionpembrolizumab (Keytruda) Recon Soln CARBOplatin (Paraplatin) in dextrose 5% 250 mL infusionDOCEtaxeL (Taxotere) 120 mg in sodium chloride 0.9% Non-PVC 256 mL infusionpembrolizumab (Keytruda) 200 mg in sodium chloride 0.9% 108 mL infusion CARBOplatin (Paraplatin) in dextrose 5% 250 mL infusionDOCEtaxeL (Taxotere) 120 mg in sodium chloride 0.9% Non-PVC 256 mL infusionpembrolizumab (Keytruda) 200 mg in sodium chloride 0.9% 108 mL infusion Past Plans No past plan information found. Radiation Treatments * No radiation treatments are documented for this patient in [facility]. Treatments may have been administered in another system.
--- OUTSIDE RECORDS SUMMARY | 2024-03-31 16:52 | XMS_ITS | Encounter Summary ---
Author Organization [facility]ly [facility] [place] [address] Care Team Providers Care Photolithographer Name Role Phone Seema Francis Primary Care Provide r Reason for Referral * Consultation (Routine) - Authorized Specialty Diagnoses / Procedures Referred By Contac t Referred To Contact Otolaryngology Diagnoses Squamous cell cancer of hypopharynx Suman Lopez MD [facility] [place] [address] Allen Waters MD [facility] [place] [address] Referral ID Status Reason Start Date Expiration Date Visits Requested Visits Authorized [id number] Authorized Consult, Test & Treat 03/19/2024 03/19/2025 1 1 * Consultation (Routine) - Duplicate Referral Specialty Diagnoses / Procedures Referred By Contac t Referred To Contact Radiation Oncology Diagnoses Squamous cell cancer of hypopharynx Suman Lopez MD [facility] [address] [facility] Rad Onc Treatment [address] [place] [phone] Referral ID Status Reason Start Date Expiration Date Visits Requested Visits Authorized [id number] Duplicate Referral Consult, Test & Treat 03/19/2025 1 1 * Consultation (Routine) - Authorized Specialty Diagnoses / Procedures Referred By Contrut t Referred To Contact Hematology and Oncology Diagnoses Squamous cell cancer of hypopharynx Suman Lopez MD [facility] [place] [address] [facility] [address] [place] [phone] Referral ID Status Reason Start Date Expiration Date Visits Requested Visits Authorized [id number] Authorized Consult, Test & Treat 03/19/2024 03/19/2025 1 1 Reason for Visit * Reason Comments Follow-up Things are fine. He had a sore throat all week but it is gone now. Encounter Details Date Type Department Care Team (Late st Contact Info) Description 03/19/2024 2:30 PM EDT Office [place] [address] Suman Lopez MD [facility] [place] [address] Squamous cell cancer of hypopharynx (Primary Dx); Orbital mass Social History Tobacco Use Types Packs/Day Years [...] Sign Reading Time Taken Comments Blood Pressure - - Pulse - - Temperature - - Respiratory Rate - - Oxygen Saturation - - Inhaled Oxygen Concentration - - Weight 59.5 kg (131 lb 1.6 oz) 03/19/2024 2:20 P M EDT Height 174 cm (5' 8.5) 03/19/2024 2:20 PM EDT Body Mass Index 19.64 03/19/2024 2:20 PM EDT documented in this encounter Procedure Notes * Suman Lopez MD - 03/19/2024 2:30 PM EDT Robi Mccall is a 58 y.o. 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 Coordination of completion staging and multidisciplinary tumor planning has been arranged. Today, Robi reports doing well overall. Reports no change in baseline vision and diplopia; stable sore throat. No stridor, stertor or difficulty managing secretions. No epistaxis. He reports eating well. ROS: No other symptoms experienced in constitutional, respiratory or ENT systems. Physical Exam: General: Calm, no acute distress, alert and oriented x4 Eyes: Left proptosis and diplopia with primary gaze, restricted extraocular motility on the left inferior and medial directions Neck: Bulky bilateral cervical lymphadenopathy Nose: Anterior rhinoscopy shows midline septum, inferior turbinates unremarkable Based upon the above history and physical exam, it was elected to perform endoscopy with debridement. Procedure: Bilateral Nasal Endoscopy with LEFT Debridement (CPT 41754-HX-04) 79 modifier utilized in setting of postoperative debridement specifically for sinus surgery debridement, not for concurrent septoplasty and DL procedure. Indication: Chronic rhinosinusitis s/p sinus surgery Surgeon: Suman Lopez MD Informed Consent: The procedure, risks and benefits were discussed with the patient and consent obtained to proceed. Procedure: Topical spray consisting of 1% oxymetazoline and 4% lidocaine was sprayed into the left nasal cavity. Pledgets soaked in 1% oxymetazoline and 4% lidocaine were placed into the nasal cavityas needed and sufficient time allowed for adequate anesthesia and decongestion. A rigid endoscope was then used to visualize each nasal cavity, utilizing inferior, central and superior passes. Crustswere debrided from the left middle meatus using alligator forceps. Patient tolerated well with minimal pain. Findings: Old blood and crusts were present in the left middle meatus. After removal, the maxillaryand partial ethmoid sinuses were entered and patency confirmed, visibly with friable mucosa and tumor. No visible scarring. Landmarks preserved include orbital andrews, skull base, bilateral inferior, middle and superior turbinates, and septum which is intact. Overall, the sinonasal cavity is healingwell. 03/11/2024 FINDINGS: 1. Direct laryngoscopy with biopsy of right hypopharyngeal lesions and oral cavity midline soft palatal lesion, right palatine tonsil ulcer a. Exophytic mass biopsied and based along the medial aspect of the right pyriform sinus extending to the apex as well as submucosal spread along postcricoid region past midline to the left pyriform sinus. No apparent fixation of the larynx to the posterior pharynx. No endolaryngeal involvement. b. Focal area of leukoplakia along right posterior hypopharynx, biopsied. c. Focal area of leukoplakia along midline soft palate, biopsied. d. Right palatine tonsil ulcer biopsied 2. Friable tumor within the left nasal cavity [...] right, biopsy: - Invasive squamous cell carcinoma, [id number], keratinizing type. - Lymphovascular space invasion is present. E. Sinus contents, left, biopsy: - Invasive poorly differentiated squamous cell carcinoma. F. Sinus contexts, left maxillary, biopsy: - Invasive poorly differentiated squamous cell carcinoma. Assessment and Plan: Encounter Diagnoses Name Primary? Squamous cell cancer of hypopharynx Yes Orbital mass I reviewed at length with the patient and family the pathology results showing cancer, specificallyinvasive and metastatic (to the left paranasal sinuses and left orbit) poorly differentiate squamous cell carcinoma. I reviewed that there is aggressive change since prior interventions now with bulky cervical lymphadenopathy bilaterally as well as pathologic confirmation of metastasis to the paranasal sinuses/orbit. He will complete CT chest/neck imaging today and a PET/CT is already scheduled to complete staging. I reviewed he will not likely be a surgical candidate and rather an induction chemotherapy and/or RN MENTAL HEALTH approach would likely be discussed at the multidisciplinary tumor board conference. Medical and radiation oncology referrals placed for [facility]; and H&N surgery team referral for formal input as to the surgical candidacy has been placed as well. From a sinus perspective, plan to perform nasal saline rinses The preferred communication for Robi is through the [facility] portal for which his family has proxy access, he reports not likely to answer the phone. I reviewed I will send the TB discussion notes tohis portal. Questions answered. Thank you very much for asking me to see this very pleasant patient. Sincerely, Suman Lopez MD Rhinology, Endoscopic Sinus & Skull Base Surgery Division of Otolaryngology - [place] [address] [facility] documented in this encounter Plan of Treatment Upcoming Encounters Date Type Department Care Team (Late st Contact Info) Description 04/02/2024 1:30 PM EDT Scheduled View Only Radiation Oncology at [address] [phone] [facility] 04/02/2024 2:00 PM EDT Office Visit Radiation Oncology at [address] [phone] Deangelo Leal MD [facility] [place] [place] [address] 04/07/2024 11:00 AM EST Office Visit Hematology/Oncology at [address] [phone] Wilman Rendon MD [address] [place] [address] DR HEMATOLOGY & [place] [address] Genet Taylor APRN [facility] [place] [place] [address] 04/07/2024 12:30 PM EST Infusion Hematology Oncology at [address] [phone] 04/25/2024 11:00 AM EST Office [place] [address] Nancy Garrison PA [facility] [place] [address] Scheduled Referrals Name Type Priority Associated Diagnoses Orde r Schedule Referral to Hematology and Oncology Outpatient Referral Routine Squamous cell cancer of hypopharynx Ordered: 03/19/2024 Referral to Radiation Oncology Outpatient Referral Routine Squamous cell cancer of hypopharynx Ordered: 03/19/2024 Referral to ENT Outpatient Referral Routine Squamous cell cancer of hypopharynx Ordered: 03/19/2024 documented as of this encounter Visit Diagnoses Diagnosis Squamous cell cancer of hypopharynx- Primary Malignant neoplasm of hypopharynx, unspecified site Orbital mass Other orbital disorder documented in this encounter Care Teams Photolithographer Relationship Specialty Start Date End Date Seema Francis PA [address] [place] [phone] PCP - General Family Medicine 01/24/24 documented as of this encounter
--- OUTSIDE RECORDS SUMMARY | 2024-03-31 16:52 | XMS_ITS | Encounter Summary ---
Author Organization Formerly [facility] Address [facility] [place] [address] Care Team Providers Care Demonstrator Knitting Name Role Phone Seema Francis Primary Care Provide r Encounter Details Date Type Department Care Team (Late st Contact Info) Description 03/11/2024 Interpretation Only Radiology [address] [place] [phone] Unknown None Social History Tobacco Use Types Packs/Day Years [...] EDT Scheduled View Only Radiation Oncology at [address] [phone] [facility] 04/02/2024 2:00 PM EDT Office Visit Radiation Oncology at [address] [phone] Deangelo Leal MD [facility] [place] [address] 04/07/2024 11:00 AM EST Office Visit Hematology/Oncology at [address] [phone] Wilman Rendon MD [address] [facility] DR HEMATOLOGY & [place] [address] Genet Taylor APRN [facility] [place] [address] 04/07/2024 12:30 PM EST Infusion Hematology Oncology at [address] [phone] 04/25/2024 11:00 AM EST Office [place] [address] Nancy Garrison PA [facility] [place] [address] documented as of this encounter Procedures Procedure Name Priority Date/Time Associated Diagnosis Comments DH OR ENDOSCOPY Routine 03/11/2024 documented in this encounter Results * DH OR Endoscopy (03/11/2024) Anatomical Region Laterality Modality Other 03/11/2024 Narrative 03/11/2024 12:00 AM EDT Photographs - Images Procedure Note Unknown - 03/13/2024 Photographs - Images Unknown EA IMAGES documented in this encounter Visit Diagnoses Not on filedocumented in this encounter Care Teams Demonstrator Knitting Relationship Specialty Start Date End Date Seema Francis PA [address] [place] [phone] PCP - General Family Medicine 01/24/24 documented as of this encounter
--- OUTSIDE RECORDS SUMMARY | 2024-03-31 16:52 | XMS_ITS | Encounter Summary ---
Author Organization [facility] [place] [address] Care Team Providers Care Triage Clinician Name Role Phone Unknown Primary Care Provider Unavailabl e Reason for Visit * Reason Onset Date Comments Prior Authorization 12/23/2020 Encounter Details Date Type Department Care Team (Late st Contact Info) Description 12/23/2020 [place] [phone] Flcao Gomez MD [facility] [place] [address] Prior Authorization Social History Tobacco Use Types Packs/Day Years Used Date Smoking Tobacco: Never Assessed Sex and Gender Information Value Date Recorded Sex Assigned at Not on file Gender Identity Not on file Sexual Orientation Straight 02/21/2021 6: 09 PM EDT documented as of this encounter Miscellaneous Notes * Telephone Encounter - Marilyn Spivey - 12/23/2020 3:00 PM EDT Refaxed order to [facility] with updated demographics. No PA needed as patient masha Medicare patient. * Telephone Encounter - Azul Montiel - 12/23/2020 1:30 PM EDT Call Center/[employer] Message Radiology Prior Authorization Provider patient sees in clinic: Patricia Caller and relationship (if other than patient): Ni from Radiology Call back number: [phone] Ok to leave a message: yes Reason for call: Radiology PA Type of test: MRI Brain wo Contrast Date the test is scheduled for: Not scheduled yet When is PA needed by: theodore Name of facility the test will done at: [facility] Address: [address], [place], [place] Insurance company: [employer] [facility] [employer] [facility] Insurance company phone number: / This insurance information was listed from Ni. She said she had a scanned in copy of his cardfrom only a few weeks ago - sounded like it was his most up to date info. It was different from what we seem to have on file. If the information doesn't work for any reason, perhaps reach out to the patient for the insurance information. Disposition of call: ??? Routine message to [place]: X Nurse/[place] contacted via: Message: y Call: n Pager: n documented in this encounter Plan of Treatment Upcoming Encounters Date Type Department Care Team (Late st Contact Info) Description 04/02/2024 1:30 PM EDT Scheduled View Only Radiation Oncology at [address] [phone] [facility] 04/02/2024 2:00 PM EDT Office Visit Radiation Oncology at [address] [phone] Deangelo Leal MD [facility] [place] [address] 04/07/2024 11:00 AM EST Office Visit Hematology/Oncology at [address] [phone] Wilman Rendon MD [facility] HEMATOLOGY & [place] [address] Genet Taylor APRN [facility] [place] [address] 04/07/2024 12:30 PM EST Infusion Hematology Oncology at [address] [phone] 04/25/2024 11:00 AM EST Office [place] [address] Nancy Garrison PA [facility] [place] [address] documented as of this encounter Visit Diagnoses Not on filedocumented in this encounter Care Teams Triage Clinician Relationship Specialty Start Date End Date Unknown None PCP - General 03/27/17 01/23/24 documented as of this encounter
--- OUTSIDE RECORDS SUMMARY | 2024-03-31 16:52 | XMS_ITS | Encounter Summary ---
Author Organization [facility] [place] [address] Care Team Providers Care Client Reporting Associate Name Role Phone Unknown Primary Care Provider Unavailabl e Reason for Visit * Consultation (Routine) - Closed Specialty Diagnoses / Procedures Referred By Otto perry Referred To Contact Otolaryngology Diagnoses Mass of nasal sinus Leonarda Larry MD [facility] [place] [address] Mervat Lopez MD [facility] [place] [address] Referral ID Status Reason Start Date Expiration Date Visits Re quested Visits Authorized [id number] Closed 01/14/2024 01/13/2025 1 1 Encounter Details Date Type Department Care Team (Late st Contact Info) Description 01/16/2024 2:00 PM EDT Office [place] [address] Mervat Lopez MD [facility] [place] [address] Orbital mass (Primary Dx); Mass of sinus; Chronic maxillary sinusitis; Chronic ethmoidal sinusitis; Lesion of soft palate Social History Tobacco Use Types Packs/Day Years Used Date Smoking Tobacco: Every Day Cigarettes 0.5 27 Smokeless Tobacco: Never Alcohol Use Standard Drinks/Week Comments Yes 0 (1 standard drink = 0.6 oz pur e alcohol) Sex and Gender Information Value Date Recorded [...] - Inhaled Oxygen Concentration - - Weight 61.2 kg (135 lb) 01/16/2024 2:20 PM EDT Height 174 cm (5' 8.5) 01/16/2024 2:20 PM EDT Body Mass Index 20.23 01/16/2024 2:20 PM EDT documented in this encounter Patient Instructions * Patient Instructions* Leonarda Larry MD - 01/16/2024 2:00 PM EDT Images from the original note were not included. Instructions Following Nasal Surgery What to Expect Drainage: You can expect some bloody mucus drainage from your nose for up to one week after surgery. This drainage will be greatest the first 3 days after surgery, during which time you may wish to keep a gauze bandage taped beneath your nose. Pain: Pain following nasal surgery is usually mild and readily controlled by over the counter medications. Sleeping with your head elevated (at least on 2 pillows) helps decrease pain and swelling. If pain is mild, Tylenol (acetaminophen) is often sufficient. You may use NSAIDs such as ibuprofen asa 2nd line in addition to acetaminophen, unless otherwise instructed by your doctor. Congestion: Don't be discouraged if you can't breath through your nose at first. It typically takes2 to 3 weeks before the inflammation and swelling inside the nose have subsided enough to provide agood nasal airway. Remember, your body is undergoing a gradual healing process. Nausea: Mild nausea and even brief vomiting is not unexpected after surgery. This can occur from a combination of many factors including anesthesia, postoperative medications, and swallowed blood. You should focus on remaining well-hydrated. If vomiting persists, please call your physician. Saline Irrigations Irrigations are a critical component of your postoperative care. Irrigate with a NeilMed rinse bottle (or equivalent) 3X/day for the first week after surgery, beginning on the day following your surgery. You can use the NeilMed packets or mix your own salt solution. Irrigations should be forceful enough to dislodge any crusts, but should not be uncomfortable or painful. Be sure to use warm, but not hot water for irrigations. Diet You can eat and drink whatever you would like after surgery. Focus first on remaining well-hydratedand incorporate foods after any nausea resolves. Begin with bland foods first and work your way back to exotic and/or spicy foods. Daily Activity It is best not to blow your nose for one week after surgery, as this may cause bleeding. If you feel the need to blow your nose, irrigate with warm saline instead. Heavy lifting, straining, and exercise that might cause nasal bleeding should be avoided during the first week. After one week you may increase your level of physical activity as you feel up to it. After two weeks, there are no limitations. Medications In most instances, you will have been given a prescription for an antibiotic course after surgery. Continue taking this antibiotic until complete. If you were put on a prednisone taper prior to surgery then complete this course as well. If you are normally on a nasal steroid spray you can restart this at any time after surgery. You will be given a prescription for a pain medication to take home. Directions will be on the bottles. Pain following nasal surgery is usually mild and readily controlled by medication. It is rare to require this medication beyond one week after surgery. What to Look For Please call the office or come to the Emergency Room should you develop: Brisk, new bleeding from the nose which doesn't stop after a few minutes of sitting up and squeezing your nostrils together Fever (greater than 101 degrees orally), chills or shakes Swelling of the eye or decreased vision Unrelenting headache Unrelenting nausea and vomiting Nasal Irrigations What is nasal irrigation and why do I need to do it? Although it may sound intimidating or uncomfortable, nasal irrigation really is as simple as running gentle saline solution through your nasal passages and sinuses. Most people find that in a short time they are comfortable irrigating their nose. The nasal and sinus cavities are normally able to clear mucus on their own through mucociliary transport. Sometimes swelling of the nose from allergy, irritation or infection can prevent this self-cleaning. In these cases, irrigations (nasal flushing or washing) are used until the lining of the nose and sinuses can recover and revert to normal. Nasalirrigation cleans the passages of your nose where particles get trapped, helping to wash them away. Nasal irrigation will also help stimulate cilia movement and healthy secretions while keeping the mucosa moist. How do I make the solution? Pre-made sale packets such as those sold by [employer] can be purchased at most drug stores, along with squeeze bottles. Packets can be mixed with sterile water from the pharmacy, distilled water or tapwater that has been boiled for 15 minutes. Alternatively, one can boil tap water for several minutes and place in a clean one liter (1 quart) container. We recommend using a container with a wide mouth to facilitate washing, and very importantly, thorough drying of the container. Add 2-3 teaspoons of table salt and 1 teaspoon of baking soda per quart. Let cool to a temperature that is luke warm, but not hot before use. How do I irrigate my nose? Irrigate each nostril with the contents of the irrigation bottle (240 mL = 8 oz.) divided equally between nostrils. Perform the irrigations while leaning forward over a sink so that the solution may drip or be spit out. Place the tip of the device at the opening of the nostril and gently irrigate the solution into the nose. We recommend using either a NeilMed squeeze bottle or a combination bulb-syring irrigation device that looks like a turkey baster. This can be taken apart for thorough periodic cleaning. Helpful tips: Breath through your mouth or hold your breath while flushing. Stop irrigating if you have to sneeze or cough. Do not speak or swallow while flushing. This could change the pressure in your ears/nose and cause infectious material to be drawn into the middle ear/sinuses. At first you may have an aversion to doing the irrigations, much like touching the eye when first wearing contact lenses. After a while this will subside and you will be able to tolerate irrigation quite easily. How do I clean the equipment? You should clean the irrigation device and solution container daily with soap and water so bacteriaare not reintroduced into the nasal cavity with each irrigation. Using two containers is optimal asone can be cleaned while the other is in use. Sterilization may be performed once a week with a weak solution of Betadine (available in pharmacies) or a diluted solution of bleach and water (1 part bleach to 100 parts water). Rinse thoroughly. Alternatively, you may choose to place the device into the microwave for 30 seconds to 1 minute to disinfect it. The bottle cannot be placed into boiling water as this will destroy the plastic material. Allow the device to completely air dry before using again. documented in this encounter Progress Notes * Leonarda Larry MD - 01/16/2024 2:00 PM EDT Images from the original note were not included. Rhinology, Endoscopic Sinus & Skull Base Surgery History of Present Illness: Robi is a 58 y.o. male whose History of Present Illness includes symptoms of gradual diplopia. He has noticed the vision changes for 7 weeks, without acute worsening. He has noticed left nasal congestion, without bleeding for 7 weeks. Sense of smell is preserve. No pain in the region. No purulent drainage. No fevers, chills, weight loss, fatigue. No facial numbness. 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 No other skin cancers or lesions in the area. No other surgeries in the region. Visual acuity is intact, no issues with ocular movements. He is seeing Dr. Dlilard with oculoplastic surgery today. Hx of significant smoking and alcohol use. He denies hx of voice changes, dysphagia, odynophagia, oral bleeding or pain No hx of allergies. Hx of seizures, has mel mal seizures, as well as focal motor seizures. Has had status epilepticus 3 times in the past. No family hx of head and neck cancer. No family hx of lymphoma or leukemia. Has arthritis of the lower spine. 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 The appearance is most consistent with neoplasm, possibly lymphoma. The bulk of the abnormality makes an invasive fungal process less likely. Past Medical History: Diagnosis Date Arthritis Glaucoma Seizures No past surgical history on file. Current Outpatient Medications Medication Sig Dispense Refill timoloL (Timoptic) 0.5 % Drops Place 1 drop into both eyes daily. LORazepam (Ativan) 1 mg tablet Take 1 mg by mouth as needed. amoxicillin-clavulanate (Augmentin) 875-125 mg tablet Take 1 tablet by mouth 2 times daily. carBAMazepine XR (Tegretol XR) 200 mg ER 12 hr tablet Take 200 mg by mouth daily. lamoTRIgine (LaMICtal) 200 mg Tablet Take 1 tablet by mouth daily. 60 tablet 11 carBAMazepine (TEGretol) 200 mg Tablet Take 1 tablet by mouth 2 times daily. 60 tablet 11 ibuprofen (Advil) 600 mg Tablet TAKE 1 TABLET BY MOUTH EVERY 6 TO 8 HOURS NEEDED FOR PAIN AND FEVER sod.chlorid/potassium chloride (THERMOTABS ORAL) Take 1 tablet by mouth 2 times daily. b complex vitamins Capsule Take 1 capsule by mouth twice a week. cholecalciferol, Vitamin D3, 25 mcg (1,000 unit) Capsule Take 1 capsule by mouth twice a week. No current facility-administered medications for this visit. Allergies Allergen Reactions Celebrex [Celecoxib] hives Social History Tobacco Use Smoking status: Every Day Current packs/day: 0.50 Average packs/day: 0.5 packs/day for 27.0 years (13.5 ttl pk-yrs) Types: Cigarettes Smokeless tobacco: Never Substance Use Topics Alcohol use: Yes Family History Problem Relation Age of Onset Glaucoma Father Macular Degeneration Neg Hx Retinal Detachment Neg Hx Review of Systems: Pertinent positives are discussed in the HPI. The ROS is otherwise negative for visual and eye problems, cardiovascular history, lung problems or shortness of breath, urinary problems, gastrointestinal problems, muscle and joint problems, skin diseases, neurological problems, psychological problems, thyroid or endocrine problems, lymphatic and hematologic problems, allergies, easy bruising/bleeding. Physical Exam: Constitutional: Well developed, well nourished, normal communicative ability, normal vocal quality,afebrile, vital signs as per nursing note. Eyes: Extraocular movements intact with diminished left medial gaze. Left eye appears slightly proptotic Head and Facial: Normocephalic, atraumatic, no suspicious lesions; normal facial muscle tone and symmetry; no sinus tenderness on palpation; salivary glands normal size, without masses. Sensation is intact Right Ear: Auricle without deformity/lesions. Left Ear: Auricle without deformity/lesions. Nose: Septum mildly deviated to th left. Inferior turbinates slightly enlarged and edematous. Oral Cavity: Normal tongue mobility, symmetrical palatal elevation with normal gag reflex, poor dentition. 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 Oropharynx: No lesions or masses, tongue base and tonsils unremarkable Neck: No masses, adenopathy or thyroid abnormalities TMJ: Non-tender, no crepitus. Respiratory: No stridor, wheezing, retractions or tachypnea. Musculoskeletal: Normal gross movement and strength of all extremities with no apparent paralysis or paresis. Integumentary: No skin lesions noted on face, neck or hands, no rashes or suspicious areas. Neurologic: Cranial nerves grossly intact. No nystagmus. No cerebellar signs. Psychiatric: Alert and oriented x 3. No signs of delusion or expressions of suicidal thoughts. Hematology/Lymphatics: No lymphadenopathy palpable throughout neck, face or salivary glands. Based upon the above history and physical exam, it was elected to perform endoscopy. Procedure: Nasal Endoscopy (CPT 40312) Indication: Symptoms suggestive of chronic rhinosinusitis. Due to limited visualization with anterior rhinoscopy that does not provide sufficient clinical information to establish a diagnosis, sinonasal endoscopy was performed using topical anesthetic and vasoconstrictors as needed. This is medically necessary to Evaluate for sinonasal mass Surgeon: Mervat Lopez MD Informed Consent: The procedure, risks and benefits were discussed with the patient and consent obtained to proceed. Procedure: Topical spray consisting of 1% oxymetazoline and 4% lidocaine was sprayed into the nasalcavity bilaterally. A rigid endoscope was then used to visualize each nasal cavity, utilizing inferior, central and superior passes. Patient tolerated well. Findings: Septum: Slightly deviated to the left Interior nasal cavity: No significant edema. Scant mucus on the right side, unable to pass scope onleft Inferior turbinates: Slightly edematous bilaterally. 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 There is possible extension to the dura of the anterior cranial fossa. The appearance is most consistent with neoplasm, possibly lymphoma. The bulk of the abnormality makes an invasive fungal process less likely. Assessment and Plan: Encounter Diagnoses Name Primary? Orbital mass Mass of sinus Chronic maxillary sinusitis Chronic ethmoidal sinusitis Robi Mccall is a 58 y.o. male with hx of arthritis and seizures presenting with a new lesionalong his left ethmoid sinuses extending to his orbit and skull base with also a lesion along his soft palate. Differential includes lymphoma, IgG4 vasculitis pseudotumor, sarcoidosis, or other sinonasal masses. We discussed risk of malignancy and need for appropriate further work-up. Plan for laboratory work-up to evaluate for rheumatologic causes of disease, will draw labs day of surgery. Reviewed plan for endoscopic sinus surgery for trans-nasal orbital decompression of medial orbital wall focally to facilitate biopsy of orbital mass, as well as biopsy of soft palate lesion and direct laryngoscopy. I discussed the risks and benefits of medical therapy versus surgery, to include bleeding, infection, injury to the eye/visual loss/double vision, cerebrospinal fluid (CSF) leak, tearing, altered smell and taste, recurrent symptoms, need for further surgery and they wish to proceed. We discussed realistic expectations of surgery and the fact that surgery is not curative. Functional endoscopic sinus surgery is medically necessary in this case in the setting of orbital tumor with sinonasal involvement. Surgery will be outpatient. He will have absorbable packing with nasal congestion and soreness, we usually do OTC pain medications. Discussed expected recovery process, pathology reports are returnedtypically in 1-2 weeks. Thank you very much for asking me to see this very pleasant patient. Sincerely, Mervat Lopez MD Rhinology, Endoscopic Sinus & Skull Base Surgery Division of Otolaryngology - [place] [address] [facility] Over 50% of the total face to face and non-face to face time of 55 minutes were spent reviewing consultation documentation and/or pertinent imaging studies, counseling or coordinating care and discussing medical and/or surgical treatments as described above. I, Dr. Lopez, saw and examined this patient with Dr. Leonarda Larry. I performed the procedureI reviewed the note above and made revisions as needed and I agree with the plan as stated above. Mervat Lopez M.D. Spa Coordinator Rhinology, Endoscopic Sinus & Skull Base Surgery Division of Otolaryngology - Head and Neck Surgery [facility] documented in this encounter Miscellaneous Notes * Addendum Note - Mervat Lopez MD - 01/16/2024 2:00 PM EDTAddended by: MERVAT LOPEZ on: 01/19/2024 12:46 PM Modules accepted: Orders documented in this encounter Plan of Treatment Upcoming Encounters Date Type Department Care Team (Late st Contact Info) Description 04/02/2024 1:30 PM EDT Scheduled View Only Radiation Oncology at [address] [phone] Rad Nurse, [place] 04/02/2024 2:00 PM EDT Office Visit Radiation Oncology at [address] [phone] Deangelo Leal MD [facility] [place] [address] 04/07/2024 11:00 AM EST Office Visit Hematology/Oncology at [address] [phone] Wilman Rendon MD [address] [place] [address] DR HEMATOLOGY [place] [address] Genet Taylor APRN [facility] [place] [address] 04/07/2024 12:30 PM EST Infusion Hematology Oncology at [address] [phone] 04/25/2024 11:00 AM EST Office [place] [address] Nancy Garrison PA [facility] [place] [address] Pending Results Name Type Priority Associated Diagnoses Date /Time Angiotensin Converting Enzyme Lab Routine Orbital mass 03/11/2024 10:51 AM EDT Scheduled Orders Name Type Priority Associated Diagnoses Orde r Schedule Angiotensin Converting Enzyme Lab Routine Orbital mass Expected: 02/02/2024, Expires: 08/03/2024 documented as of this encounter Results * (ABNORMAL) Antinuclear Antibody Screen (APARNA) (03/11/2024 10:51 AM EDT) APARNA Ab Screen Positive( A) Negative 03/12/2024 12:13 PM EDT [facility] dsDNA Ab <0.6 <=15.0 IU/mL 03/12/2024 12:13 PM EDT [facility] Blood VENOUS BLOOD SPECIMEN / Unknown IP Care Team Draw / Unknown 03/11/2024 10:51 AM EDT 03/11/2024 10:56 AM EDT Narrative [facility] - 03/12/2024 12:13 PM EDT dsDNA Ab Reference Range: <10 - Negative 10-15 - Equivocal >15 - Positive This antinuclear antibody (APARNA) screen is a qualitative test performed using a fluoroenzyme immunoassay on the Phadia 250 analyzer. This screen is designed to detect antibodies to U1RNP SS-A/Ro SS-B/La centromere B Scl-70 Joan-1 and Sm(Palma) proteins in serum samples. Antibodies to other nuclear antibodies will not be detected with this assay. This APARNA screen is also performed in concert with a quantitative for IgG antibodies to dsDNA. The dsDNA antibody result was generated using a fluoroenzyme immunoassay on the Phadia 250 analyzer. This quantitative test is designed to detect IgG antibodies directed against double stranded DNA in human serum. The presence of antibodies that recognize dsDNA is a highly specific marker for systemic lupus erythematosus. Mervat Lopez MD IMMUNOLOGY ORDERABLE S [facility] [place] [address] * Rheumatoid factor, quant (03/11/2024 10:51 AM EDT) Rheumatoid Factor 11 <=14 IU/mL 03/11/2024 3:25 PM EDT [facility] Blood VENOUS BLOOD SPECIMEN / Unknown IP Care Team Draw / Unknown 03/11/2024 10:51 AM EDT 03/11/2024 10:56 AM EDT Mervat Lopez MD CHEMISTRY ORDERABLES Performing Organization Address City/[facility]/ZIP Co de Phone Number [facility] [place] [address] * Proteinase-3 Antibody (03/11/2024 10:51 AM EDT) Proteinase 3 Antibody <0.6 <2.0 U/mL 03/12/2024 12:13 PM EDT [facility] Blood VENOUS BLOOD SPECIMEN / Unknown IP Care Team Draw / Unknown 03/11/2024 10:51 AM EDT 03/11/2024 10:56 AM EDT Narrative [facility] - 03/12/2024 12:13 PM EDT Reference Range: <2.0 - Negative 2.0-3.0 - Equivocal >3.0 - Positive Mervat Lopez MD IMMUNOLOGY ORDERABLE S [facility] [place] [address] * Myeloperoxidase Ab (03/11/2024 10:51 AM EDT) Myeloperoxidase Antibody <0.2 <3.5 U/mL 03/12/2024 12:13 PM EDT [facility] Blood VENOUS BLOOD SPECIMEN / Unknown IP Care Team Draw / Unknown 03/11/2024 10:51 AM EDT 03/11/2024 10:56 AM EDT Narrative [facility] - 03/12/2024 12:13 PM EDT Reference Range: <3.5 - Negative 3.5-5.0 - Equivocal >5.0 - Positive Mervat Lopez MD IMMUNOLOGY ORDERABLE S Performing Organization Address [facility]/ZIP Co de Phone Number [facility] [place] [address] * Cytoplasmic Neutrophilic Ab (03/11/2024 10:51 AM EDT) Pathologist [facility] C-Anca May Negative Negative 03/13/2024 2:33 PM EDT [facility] P-Anca May Negative Negative 03/13/2024 2:33 PM EDT [facility] Comment: Negative for cANCA and pANCA patterns by immunofluorescence. ADDITIONAL INFORMATION This test was developed and its performance characteristics determined by [facility] in a manner consistent with CLIA requirements. This test has not been cleared or approved by the U.S. Food and Drug Administration. Blood VENOUS BLOOD SPECIMEN / Unknown IP Care Team Draw / Unknown 03/11/2024 10:51 AM EDT 03/11/2024 11:04 AM EDT Narrative [facility] - 03/13/2024 2:33 PM EDT Test Performed by: [place] [address] Food Tray Assembler: Bibi Kang Ph.D.; CLIA# [id number] Mervat Lopez MD LAB SEND OUT ORDERAB LES Performing Organization Address [facility] Co de Phone Number [facility] [address] * Sedimentation rate (03/11/2024 10:51 AM EDT) Sedimentation Rate Automated 17 2 - 37 mm/hr 03/11/2024 1:48 PM EDT [facility] Blood VENOUS BLOOD SPECIMEN / Unknown IP Care Team Draw / Unknown 03/11/2024 10:51 AM EDT 03/11/2024 10:55 AM EDT Mervat Lopez MD HEMATOLOGY ORDERABLE S Performing Organization Address City/[facility]/ZIP Co de Phone Number [facility] [place] [address] * (ABNORMAL) CRP, acute inflammation (03/11/2024 10:51 AM EDT) C-Reactive Protein 17.1(H) <=4.9 mg/L 03/11/2024 11:46 AM EDT [facility] Blood VENOUS BLOOD SPECIMEN / Unknown IP Care Team Draw / Unknown 03/11/2024 10:51 AM EDT 03/11/2024 10:56 AM EDT Mervat Lopez MD CHEMISTRY ORDERABLES Performing Organization Address [facility] Co de Phone Number [facility] [place] [place] [address] * (ABNORMAL) IgG Subclasses (03/11/2024 10:51 AM EDT) IgG 983 700 - 1,600 mg/dL 03/13/2024 9:39 AM EDT [facility] IgG 1 523.8 382.4 - 928.6 mg/dL 03/13/2024 9:39 AM EDT [facility] IgG 2 196.9(L) 241.8 - 700.3 mg/dL 03/13/2024 9:39 AM EDT [facility] IgG 3 18.3(L) 21.8 - 176.1 mg/dL 03/13/2024 9:39 AM EDT [facility] IgG 4 57.1 3.9 - 86.4 mg/dL 03/13/2024 9:39 AM EDT [facility] Blood VENOUS BLOOD SPECIMEN / Unknown IP Care Team Draw / Unknown 03/11/2024 10:51 AM EDT 03/11/2024 10:56 AM EDT Mervat Lopez MD IMMUNOLOGY ORDERABLE S [facility] [place] [address] * Request for 2nd read MR Head (01/14/2024 11:40 AM EDT) WORKSTATION ID [id number] RAD Anatomical Region Laterality Modality SO Impressions [...] who have questions please contact the health ocular care technologist that requested your imaging first. ? Narrative [...] cerebral parenchyma itself. The pterygopalatine fossa and information technology assistant space have normal appearances. No distant abnormal intracranial enhancement is present. Intracranial flow-voids are of normal appearance. Procedure Note Shad Iqbal MD - 01/14/2024 EXAMINATION: REQUEST FOR 2ND READ MR HEAD CLINICAL HISTORY: [facility], left periorbital mass; Sending Institution [facility], left periorbital mass; Date of [id number]; I believe a reinterpretation of this exam [...] the cerebralparenchyma itself. The pterygopalatine fossa and information technology assistant space have normal appearances.No distant abnormal intracranial [...] patients who have questions please contactthe health ocular care technologist that requested your imaging first. Mervat Lopez MD IMG OUTSIDE [facility] ORDERABLES documented in this encounter Visit Diagnoses Diagnosis Orbital mass Other orbital disorder Mass of sinus Swelling, mass, or lump in head and neck Orbital mass- Primary Other orbital disorder Mass of sinus Swelling, mass, or lump in head and neck Chronic maxillary sinusitis Chronic ethmoidal sinusitis Lesion of soft palate documented in this encounter Care Teams Client Reporting Associate Relationship Specialty Start Date End Date Unknown None PCP - General 03/27/17 01/23/24 documented as of this encounter
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
--- OUTSIDE RECORDS SUMMARY | 2024-03-31 16:52 | XMS_ITS | Encounter Summary ---
Author Organization [facility] [place] [address] Care Team Providers Care Manager Leadership Development Name Role Phone Unknown Primary Care Provider Unavailabl e Reason for Visit * Reason Onset Date Comments Medication Problem 12/23/2020 Encounter Details Date Type Department Care Team (Late st Contact Info) Description 12/23/2020 Telephone [place] [address] Flaco Gomez MD [facility] [place] [address] Medication Problem Social History Tobacco Use Types Packs/Day Years Used Date Smoking Tobacco: Never Assessed Sex and Gender Information Value Date Recorded Sex Assigned at Not on file Gender Identity Not on file Sexual Orientation Straight 02/21/2021 6: 09 PM EDT documented as of this encounter Miscellaneous Notes * Telephone Encounter - Susan Pino RN - 12/24/2020 10:48 AM EDT Spoke to patient's . Made aware that per Dr. Gomez's last OV on 12/21/20: In the meantime I have recommended escalation in the dose of Lamictal so that he will go up from 75 mg twice daily to 200 mg twice daily over about a month. I would keep the Tegretol dose where it is now at 200 mg twicedaily in view of the hyponatremia. I will try to obtain labs locally in 6 weeks by which time he dorie uld be up to a full dose of Lamictal. It would also be reasonable to try a combination of Lamictal and Depakote. Patient/caller in agreement and verbalized understanding of the plan. ?? * Telephone Encounter - DanielAarti julian - 12/23/2020 3:45 PM EDT Call Center / Public Utilities Sales Representative Message - Medication Issue (Not to be used for refill request or medication prior auth request) Provider patient sees in Clinic: Dr. Gomez Caller and relationship (if other than patient-full name): Call Back Number: [phone] Ok to leave a message: Reason for call: Clarification on instuctions Message/information for the nurse: Patients states that the provider wanted the patient on 300mg twice daily by the dorinda of 6 weeks. states after she talked to the PCP she wanted to have this clarified. Please call back to discuss Name of Medication: lamoTRIgine (LaMICtal) 100 mg Tablet Issue with the medication: unsure on instructions Disposition of Call: ?? Red Arrow Message sent to Nurse - Reason for RED ARROW Message: n ?? Routine Message sent to the Nurse y ?? Other: n Nurse contacted via: Message: y Call: n Pager: n documented in this encounter Plan of Treatment Upcoming Encounters Date Type Department Care Team (Late st Contact Info) Description 04/02/2024 1:30 PM EDT Scheduled View Only Radiation Oncology at [address] [phone] [facility] 04/02/2024 2:00 PM EDT Office Visit Radiation Oncology at [address] [phone] Deangelo Leal MD [facility] [place] [address] 04/07/2024 11:00 AM EST Office Visit Hematology/Oncology at [address] [phone] Wilman Rendon MD [address] [facility] HEMATOLOGY & [place] [address] Genet Taylor APRN [facility] [place] [address] 04/07/2024 12:30 PM EST Infusion Hematology Oncology at [address] [phone] 04/25/2024 11:00 AM EST Office [place] [phone] Nancy Garrison PA [facility] [place] [address] documented as of this encounter Visit Diagnoses Not on filedocumented in this encounter Care Teams Manager Leadership Development Relationship Specialty Start Date End Date Unknown None PCP - General 03/27/17 01/23/24 documented as of this encounter
--- OUTSIDE RECORDS SUMMARY | 2024-03-31 16:52 | XMS_ITS | Encounter Summary ---
Author Organization [facility] [place] [address] Care Team Providers Care Grades 1 6 Tutor Name Role Phone Unknown Primary Care Provider Unavailabl e Encounter Details Date Type Department Care Team (Late st Contact Info) Description 01/11/2024 Interpretation Only Radiology Library at [facility] [place] [phone] Jaylin Chapa MD [facility] [place] [address] Social History Tobacco Use Types Packs/Day Years Used Date Smoking Tobacco: Every Day Cigarettes 0.5 27 Smokeless Tobacco: Never Sex and Gender Information Value Date Recorded Sex Assigned at Not on file Gender Identity Not on file Sexual Orientation Straight 02/21/2021 6: 09 PM EDT documented as of this encounter Plan of Treatment Upcoming Encounters Date Type Department Care Team (Late st Contact Info) Description 04/02/2024 1:30 PM EDT Scheduled View Only Radiation Oncology at [address] [phone] [facility] 04/02/2024 2:00 PM EDT Office Visit Radiation Oncology at [address] [phone] Deangelo Leal MD [facility] [place] [address] 04/07/2024 11:00 AM EST Office Visit Hematology/Oncology at [address] [phone] Wilman Rendon MD [address] [facility] HEMATOLOGY & [place] [address] Genet Taylor APRN [facility] [place] [address] 04/07/2024 12:30 PM EST Infusion Hematology Oncology at [address] [phone] 04/25/2024 11:00 AM EST Office [place] [phone] Nancy Garrison PA [facility] [place] [address] documented as of this encounter Procedures Procedure Name Priority Date/Time Associated Diagnosis Comments FILM LIBRARY STORAGE ONLY CT HEAD Routine 01/11/2024 2:50 PM EDT documented in this encounter Results * Film Library- Storage Only CT Head (01/11/2024 2:50 PM EDT) 01/11/2024 10:3 9 PM EDT Narrative RAD - 01/11/2024 10:39 PM EDT This exam is auto-finalizing. It's purpose is for storage only. Jaylin Chapa MD IMG FILM LIBRARY ORD ERABLES [place], [place] documented in this encounter Visit Diagnoses Not on filedocumented in this encounter Care Teams Grades 1 6 Tutor Relationship Specialty Start Date End Date Unknown None PCP - General 03/27/17 01/23/24 documented as of this encounter
--- OUTSIDE RECORDS SUMMARY | 2024-03-31 16:52 | XMS_ITS | Encounter Summary ---
Author Organization [facility] [place] [address] Care Team Providers Care Electronic Technologist Name Role Phone Unknown Primary Care Provider Unavailabl e Encounter Details Date Type Department Care Team (Late st Contact Info) Description 01/11/2024 Interpretation Only Radiology Library at [facility] [place] [address] Jaylin Chapa MD [facility] [place] [address] Social History Tobacco Use Types Packs/Day Years [...] EDT Scheduled View Only Radiation Oncology at [address] [phone] [facility] 04/02/2024 2:00 PM EDT Office Visit Radiation Oncology at [address] [phone] Deangelo Leal MD [facility] [place] [address] 04/07/2024 11:00 AM EST Office Visit Hematology/Oncology at [address] [phone] Wilman Rendon MD [address] [facility] HEMATOLOGY & [place] [address] Genet Taylor APRN [facility] [place] [address] 04/07/2024 12:30 PM EST Infusion Hematology Oncology at [address] [phone] 04/25/2024 11:00 AM EST Office Visit [place] [address] Nancy Garrison PA [facility] [place] [address] documented as of this encounter Procedures Procedure Name Priority Date/Time Associated Diagnosis Comments FILM LIBRARY STORAGE ONLY CT HEAD Routine 01/11/2024 2:45 PM EDT documented in this encounter Results * Film Library- Storage Only CT Head (01/11/2024 2:45 PM EDT) 01/11/2024 10:3 9 PM EDT Narrative RAD - 01/11/2024 10:39 PM EDT This exam is auto-finalizing. It's purpose is for storage only. Jaylin Chapa MD IMG FILM LIBRARY ORD ERABLES [place], [place] documented in this encounter Visit Diagnoses Not on filedocumented in this encounter Care Teams Electronic Technologist Relationship Specialty Start Date End Date Unknown None PCP - General 03/27/17 01/23/24 documented as of this encounter
--- OUTSIDE RECORDS SUMMARY | 2024-03-31 16:52 | XMS_ITS | Encounter Summary ---
Author Organization [facility] [place] [address] Care Team Providers Care School Counsellor Name Role Phone Unknown Primary Care Provider Unavailabl e Encounter Details Date Type Department Care Team (Late Contact Info) Description 01/11/2024 2:45 PM EDT Ancillary Procedure Radiology Library at [facility] [place] [address] Jaylin Chapa MD [facility] [place] [address] Social History Tobacco Use Types Packs/Day Years [...] Scheduled View Only Radiation Oncology at [address] [phone] [facility] 04/02/2024 2:00 PM EDT Office Visit Radiation Oncology at [address] [phone] Deangelo Leal MD [facility] [address] 04/07/2024 11:00 AM EST Office Visit Hematology/Oncology at [address] [phone] Wilman Rendon MD [address] [facility] HEMATOLOGY & [place] [address] Genet Taylor APRN [facility] [place] [address] 04/07/2024 12:30 PM EST Infusion Hematology Oncology at [address] [phone] 04/25/2024 11:00 AM EST Office [place] [phone] Nancy Garrison PA [facility] [place] [address] documented as of this encounter Procedures Procedure Name Priority Date/Time Associated Diagnosis Comments FILM LIBRARY STORAGE ONLY CT HEAD Routine 01/11/2024 2:45 PM EDT documented in this encounter Results * Film Library- Storage Only CT Head (01/11/2024 2:45 PM EDT) 01/11/2024 10:3 9 PM EDT Narrative [facility] - 01/11/2024 10:39 PM EDT This exam is auto-finalizing. It's purpose is for storage only. Jaylin Chapa MD IMG FILM LIBRARY ORD ERABLES [place], [place] documented in this encounter Visit Diagnoses Not on filedocumented in this encounter Care Teams School Counsellor Relationship Specialty Start Date End Date Unknown None PCP - General 03/27/17 01/23/24 documented as of this encounter
--- OUTSIDE RECORDS SUMMARY | 2024-03-31 16:52 | XMS_ITS | Encounter Summary ---
[place] [address] Care Team Providers Care Emergency Department Physician Name Role Phone Unknown Primary Care Provider Unavailabl e Reason for Referral * Consultation (Urgent) - Closed Specialty Diagnoses / Procedures Referred By Contac t Referred To Contact Ophthalmology Diagnoses Mass of sinus Leonarda Larry MD [facility] [place] [address] [facility] Ophthalmology [address] [place] [phone] Referral ID Status Reason Start Date Expiration Date V isits Requested Visits Authorized [id number] Closed Consult, Test & Treat 01/12/2024 01/11/2025 1 1 Encounter Details Date Type Department Care Team (Late st Contact Info) Description 01/12/2024 Notes [place] [phone] Leonarda Larry MD [facility] [place] [address] Social History Tobacco Use Types Packs/Day Years Used Date Smoking Tobacco: Every Day Cigarettes 0.5 27 Smokeless Tobacco: Never Sex and Gender Information Value Date Recorded Sex Assigned at Not on file Gender Identity Not on file Sexual Orientation Straight 02/21/2021 6: 09 PM EDT documented as of this encounter Progress Notes * Leonarda Larry MD - 01/12/2024 6:09 PM EDT Received transfer center call regarding this patient and MRI findings for sinus cavity soft tissue mass extending into the orbit and engulfing the rectus muscle. Discussed differential including infectious etiologies vs malignancy. The patient was at home at the time of this call and I was conversing with the Hospitalist chuck wagon driver who had also not seen or assessed the patient. We reviewed that it is very challenging to make any decisions without having examined the patient. While the patient reports more chronic vision changes of diplopia over time, it is unclear if there is any concern for more acute changes. Went over options of presenting to the local ED for further assessment and eye exam to confirm history. Patient needs to also be seen by Dr. Lopez for further assessment and [place] [facility] I will place the referrals. Patient was discussed with Dr. Eduard Larry MD, PGY5 01/12/24 documented in this encounter Plan of Treatment Upcoming Encounters Date Type Department Care Team (Late st Contact Info) Description 04/02/2024 1:30 PM EDT Scheduled View Only Radiation Oncology at [address] [phone] [facility] 04/02/2024 2:00 PM EDT Office Visit Radiation Oncology at [address] [phone] Deangelo Leal MD [facility] [place] [address] 04/07/2024 11:00 AM EST Office Visit Hematology/Oncology at [address] [phone] Wilman Rendon MD [address] [facility] HEMATOLOGY & [place] [address] Genet Taylor APRN [facility] [place] [address] 04/07/2024 12:30 PM EST Infusion Hematology Oncology at [address] [phone] 04/25/2024 11:00 AM EST Office [place] [phone] Nancy Garrison PA [facility] [place] [address] Scheduled Referrals Name Type Priority Associated Diagnoses Order Schedule Referral to Ophthalmology Outpatient Referral Urgent Mass of sinus Ordered: 01/12/2024 documented as of this encounter Visit Diagnoses Diagnosis Mass of sinus Swelling, mass, or lump in head and neck documented in this encounter Care Teams Emergency Department Physician Relationship Specialty Start Date End Date Unknown None PCP - General 03/27/17 01/23/24 documented as of this encounter
--- OUTSIDE RECORDS SUMMARY | 2024-03-31 16:52 | XMS_ITS | Encounter Summary ---
Author Organization [facility] [place] [address] Care Team Providers Care Scientific Illustrator Name Role Phone Unknown Primary Care Provider Unavailabl e Encounter Details Date Type Department Care Team (Late st Contact Info) Description 02/28/2021 Telephone [place] [phone] Flaco Gomez MD [facility] [place] [address] Social History Tobacco Use Types Packs/Day Years Used Date Smoking Tobacco: Every Day Cigarettes 0.5 27 Smokeless Tobacco: Never Sex and Gender Information Value Date Recorded Sex Assigned at Not on file Gender Identity Not on file Sexual Orientation Straight 02/21/2021 6: 09 PM EDT documented as of this encounter Miscellaneous Notes * Telephone Encounter - Susan Pino RN - 02/28/2021 3:39 PM EDT Mr. Mccall, Lab orders has been faxed to [facility]. Keep us posted when this is done. Susan Goode RN documented in this encounter Plan of Treatment Upcoming Encounters Date Type Department Care Team (Late st Contact Info) Description 04/02/2024 1:30 PM EDT Scheduled View Only Radiation Oncology at [address] [phone] [facility] 04/02/2024 2:00 PM EDT Office Visit Radiation Oncology at [address] [phone] Deangelo Leal MD [facility] [place] [address] 04/07/2024 11:00 AM EST Office Visit Hematology/Oncology at [address] [phone] Wilman Rendon MD [address] [facility] HEMATOLOGY [place] [address] Genet Taylor APRN [facility] [place] [address] 04/07/2024 12:30 PM EST Infusion Hematology Oncology at [address] [phone] 04/25/2024 11:00 AM EST Office Visit [place] [phone] Nancy Garrison PA [facility] [place] [address] documented as of this encounter Visit Diagnoses Diagnosis Partial symptomatic epilepsy with complex partial seizures, intractable, with status epilepticus documented in this encounter Care Teams Scientific Illustrator Relationship Specialty Start Date End Date Unknown None PCP - General 03/27/17 01/23/24 documented as of this encounter
--- OUTSIDE RECORDS SUMMARY | 2024-03-31 16:52 | XMS_ITS | Encounter Summary ---
Author Organization [facility] [place] [address] Care Team Providers Care Training Program Developer Name Role Phone Seema Francis Primary Care Provide r Encounter Details Date Type Department Care Team (Latest Contact Info) Description 03/19/2024 Travel Social History Tobacco Use Types Packs/Day [...] EDT Scheduled View Only Radiation Oncology at [address] [phone] [facility] 04/02/2024 2:00 PM EDT Office Visit Radiation Oncology at [address] [phone] Deangelo Leal MD [facility] [place] [address] 04/07/2024 11:00 AM EST Office Visit Hematology/Oncology at [address] [phone] Wilman Rendon MD [address] [facility] HEMATOLOGY [place] [address] Genet Taylor APRN [facility] [place] [address] 04/07/2024 12:30 PM EST Infusion Hematology Oncology at [address] [phone] 04/25/2024 11:00 AM EST Office [place] [phone] Nancy Garrison PA [facility] [place] [address] documented as of this encounter Visit Diagnoses Not on filedocumented in this encounter Care Teams Training Program Developer Relationship Specialty Start Date End Date Seema Francis PA [address] [place] [phone] PCP - General Family Medicine 01/24/24 documented as of this encounter
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
--- OUTSIDE RECORDS SUMMARY | 2024-03-31 16:52 | XMS_ITS | Encounter Summary ---
[facility] Organization [facility] [place] [address] Care Team Providers Care Pest Controller Assistant Name Role Phone Seema Francis Primary Care Provide r Reason for Visit * Auth/Cert (Routine) Specialty Diagnoses / Procedures Referred By Contac t Referred To Contact Diagnoses Orbital mass Mass of sinus Chronic maxillary sinusitis Chronic ethmoidal sinusitis Lesion of soft palate orbital mass with sinonasal extension, chronic ethmoid and maxillary sinusitis, lesion of soft palate Procedures PRO NASAL ENDOSCOPY SURG MEDIAL/INF ORB WALL DECOMPRESSION PRO LARYNGOSCOPY DIRECT OPERATIVE W/BIOPSY PRO STEREOTACTIC CPTR ASSTD PX CRANIAL, EXTRADURAL NASAL, SINUS ENDOSCOPY, ORBITAL WALL DECOMPRESSION (WRVU 15.9) LARYNGOSCOPY, DIRECT, OPERATIVE, WITH BIOPSY (WRVU 3.16) STEREOTACTIC COMPUTER-ASSTD NAVIGATIONAL CRANIAL EXTRADURAL (WRVU 3.18) MODIFIER,STEALTH 2,KINEVO Suman Lopez MD [facility] [place] [address] [facility] Referral ID Status Reason Start Date Expiration Date Visits Re quested Visits Authorized [id number] 1 1 Encounter Details Date Type Department Care Team ([facility] st Contact Info) Description 03/11/2024 11:17 AM EDT Anesthesia Event [place] [address] Shon Stevenson MD [address] [place] [address] [place] [address] Lila Olivo Anesthesia Record Procedure Summary Procedure Name Responsible Anesthesiologist Anesthesia Start Time Anesthesia Stop Time NASAL, SINUS ENDOSCOPY, TOTAL ETHMOIDECTOMY (WRVU 5.75) (Left: Nose) Shon Stevenson MD 03/11/24 1117 03/11/24 1400 Events Date Time Event Comment 03/11/2024 1053 1117 AN Verify 1117 Start 1119 An Start Data 1125 An Induction 1128 An Intubation 1128 Anesthesia Ready 1139 Quick Note Laryngoscopy 1259 Handoff Intra-procedure anesthesia care was transferred after review of the patient's history, current anesthetic/surgical status and procedural plan, anticipated issues and expected post-operative course (including disposition.) Shon Stevenson MD 1343 Extubation/LMA Out 1348 an stop data 1400 Recovery or ICU Handoff Kathy ent care was transferred to the destination unit staff after review of the patient's medical history, current anesthetic/surgical status and plan, according to the Provider Handoff Checklist. 1400 Stop Meds Name Total lidocaine IV 60 mg propofoL 150 mg fentaNYL 100 mcg rocuronium 80 mg sugammadex 200 mg ePHEDrine 5 mg ondansetron 4 mg dexAMETHasone 8 mg ampicillin-sulbactam (Unasyn ) 3 g vial attach to sodium chloride 0.9% 100 mL Mini-Bag Plus 3 g midazolam 2 mg PHENYLephrine INF 620 mcg HYDROmorphone 0.5 mg lactated ringers 1,100 mL * Agents Name O2 * Blood No blood administrations on file. Lines, Drains, and Airways Type Details Placement Removal Incision 03/11/24; nose (sinus) 03/11/24 0000 by Candy Herron RN Incision 03/11/24; throat 03/11/24 0000 b y Candy Herron RN PIV 03/11/24; 1050; 20 g auge; median cubital vein (antecubital fossa), right; Anatomical Landmarks; US Not Used; distraction, appears comfortable, tolerated well; no longer indicated; 03/11/24; 1509 03/11/24 1050 by Juana Shaffer RN 03/11/24 1509 by Isaura Wolff RN ETT Mask Ventilation: Ea sy (1); ETT Type: Cuffed, Oral; ETT Size: 7.5 mm; Mac Blade: 4; Notes: Asleep, Pre-O2, Cricoid Pressure, Stylette; Attempts: 1; Laryngoscopy Grade: 2; ETT Placement Verified By: Auscultation, Capnometry; Secured at Teeth: 23 cm; Inserted by: FREDDY Atkins; Removal Date: 03/11/24; Removal Time: 1343 03/11/24 1128 by Lila Olivo 03/11/24 1343 by Lila Olivo documented in this encounter Social History Tobacco Use Types Packs/Day Years [...] PM EDT documented as of this encounter OR Notes * Anesthesia Postprocedure Evaluation - Shon Stevenson MD - 03/11/2024 2:30 PM EDT Department of Anesthesiology Post-procedure Note Patient: Robi Mccall Procedure Summary Date: 03/11/24 Room / Location: [facility] OR [address] [place] [address] MAIN OR Anesthesia Start: 1117 Anesthesia Stop: 1400 Procedures: NASAL, SINUS ENDOSCOPY, TOTAL ETHMOIDECTOMY (WRVU 5.75) (Left: Nose) LARYNGOSCOPY, DIRECT, OPERATIVE, WITH BIOPSY (WRVU 3.16) (Throat) STEREOTACTIC COMPUTER-ASSTD NAVIGATIONAL CRANIAL EXTRADURAL (WRVU 3.18) MODIFIER,STEALTH 2,KINEVO NASAL, SINUS ENDOSCOPY, REMOVE TISSUE MAXILLARY SINUS (WRVU 4.68) (Left: Nose) Diagnosis: Orbital mass Mass of sinus Chronic maxillary sinusitis Chronic ethmoidal sinusitis Lesion of soft palate (orbital mass with sinonasal extension, chronic ethmoid and maxillary sinusitis, lesion of soft palate) Surgeons: Suman Lopez MD Responsible Provider: Shon Stevenson MD Anesthesia Type: general ASA Status: 3 All Anesthesia Providers: Anesthesiologist: Huy Lopez MD; Shon Stevenson MD Student Nurse [employer] Production Technician: Lila Olivo Vitals Value Taken Time BP 153/99 03/11/24 1415 Temp 36.1 ??C (97 ??F) 03/11/24 1353 Pulse 73 03/11/24 1429 Resp 11 03/11/24 1429 SpO2 98 % 03/11/24 1429 Pain Level 2 03/11/24 1400 Vitals shown include unfiled device data. Patient Location: PACU/[facility] Level of Consciousness: Awake and Alert Pain Management: Satisfactory Analgesia PONV: None Cardiovascular Status: At Baseline and Hemodynamically Stable Respiratory Status: At Baseline and Room Air Postoperative Fluid Status: Intravascular EUvolemia Possible Anesthetic Complications: NONE apparent at time of evaluation Final Primary Anesthesia Type: General (The anesthetic type performed was the same as planned.) Comments: Shon Stevenson MD * Anesthesia Preprocedure Evaluation - Huy Lopez MD - 03/11/2024 10:46 AM EDT Pre-Anesthesia Evaluation for: Robi Mccall a 58 y.o. male. Procedure(s): NASAL, SINUS ENDOSCOPY, ORBITAL WALL DECOMPRESSION (WRVU 15.9) LARYNGOSCOPY, DIRECT, OPERATIVE, WITH BIOPSY (WRVU 3.16) STEREOTACTIC COMPUTER-ASSTD NAVIGATIONAL CRANIAL EXTRADURAL (WRVU 3.18) MODIFIER,STEALTH 2,KINEVO Patient Active Problem List Diagnosis Date Noted ??? Depression 12/21/2020 ??? Chronic back pain 12/21/2020 ??? Sciatica of right side 12/21/2020 ??? Alcohol abuse 12/21/2020 ??? Basal cell adenocarcinoma 12/21/2020 Past Medical History: Diagnosis Date ??? Arthritis ??? Glaucoma ??? Seizures History reviewed. No pertinent surgical history. Social History Tobacco Use ??? Smoking status: Every Day Current packs/day: 0.50 Average packs/day: 0.5 packs/day for 27.0 years (13.5 ttl pk-yrs) Types: Cigarettes ??? Smokeless tobacco: Never Substance Use Topics ??? Alcohol use: Yes Alcohol/week: 42.0 standard drinks of alcohol Types: 42 Cans of beer per week Comment: 6 beers/day Social History Substance and Sexual Activity Drug Use Yes ??? Types: Marijuana Comment: smoking daily Allergies Allergen Reactions ??? Celebrex [Celecoxib] hives Medications: MAR and/or home medications have been reviewed. Physical Exam: Preprocedure Vitals Current as of 03/11/24 1046 BP: 109/90 Pulse: 75 Resp: 18 SpO2: 95 Temp: 37.1 ??C (98.8 ??F) Height: 172.7 cm (5' 8) (03/11/24) Weight: 59.5 kg (131 lb 1.6 oz) (03/11/24) BMI: 19.93 IBW: 68.4 kg (150 lb 12.1 oz) Last edited 03/11/24 1036 by EC Airway Assessment: Mallampati: II TM distance: >3 FB Neck ROM: full Cardiovascular Assessment: Rhythm: regular Rate: normal system normal Pulmonary Assessment: unlabored breathing pulmonary exam normal Dental Assessment: - normal exam Misc Assessment: Patient is wearing No contact(s). IV access: Peripheral line Last Filed Perioperative Cognitive Screening None Anesthesia Plan: ASA 3 general, with a(n) intravenous induction 58 y/o M with nasal sinus obstruction here for sinus endoscopy. Allergies: celecoxib NPO status: appropriate Plan: GETA, PIVx1, std ASA monitors Region - Other Informed Consent: Anesthetic plan and risks discussed with patient. Plan discussed with PERSONNEL SECURITY ASSISTANT and attending. Anesthesia Screening documented in this encounter Plan of Treatment Upcoming Encounters Date Type Department Care Team (Late st Contact Info) Description 04/02/2024 1:30 PM EDT Scheduled View Only Radiation Oncology at [address] [phone] St Howard Cherry 04/02/2024 2:00 PM EDT Office Visit Radiation Oncology at [address] [phone] Deangelo Leal MD [facility] [place] [address] 04/07/2024 11:00 AM EST Office Visit Hematology/Oncology at [address] [phone] Wilman Rendon MD [address] [facility] [address] HEMATOLOGY & [place] [address] Genet Taylor APRN [facility] [place] [address] 04/07/2024 12:30 PM EST Infusion Hematology Oncology at [address] [phone] 04/25/2024 11:00 AM EST Office [place] [phone] Nancy Garrison PA [facility] [place] [address] documented as of this encounter Visit Diagnoses Not on filedocumented in this encounter Administered Medications Inactive Administered Medications - up to 3 most recent administrations Medication Order MAR Action Action Date Dose Rate Site ampicillin-sulbactam (Unasyn) 3 g vial attach to sodium chloride 0.9% 100 mL Mini-Bag Plus 3 g, Intravenous, ONCE, 1 dose, On Sun03/11/24 at 1045, Administer over 15 Minutes, Warning Vesicant/Irritant Medication Dosed in mg of Unasyn. Warning Vesicant/Irritant Medication , Indication for (Active or Suspected): Prophylaxis New Bag 03/11/2024 11:36 AM EDT 3 g dexAMETHasone (Decadron) injection Intravenous, PRN, Starting on Sun03/11/24 at 1125, Until Sun03/11/24 at 1406, Anesthesia Intra-op, Routine Given 03/11/2024 11:25 AM EDT 8 mg ePHEDrine sulfate (5 mg/mL) multi-dose injection Intravenous, PRN, Starting on Sun03/11/24 at 1324, Until Sun03/11/24 at 1406, Anesthesia Intra-op, Routine Given 03/11/2024 1:24 PM EDT 5 mg fentaNYL (pf) (50 mcg/mL) multi-dose injection Intravenous, PRN, Starting on Sun03/11/24 at 1125, Until Sun03/11/24 at 1406, Anesthesia Intra-op, Routine Given 03/11/2024 11:42 AM EDT 50 mcg Given 03/11/2024 11:25 AM EDT 50 mcg HYDROmorphone (Dilaudid) (2 mg/mL) multi-dose injection solution Intravenous, PRN, Starting on Sun03/11/24 at 1247, Until Sun03/11/24 at 1406, Anesthesia Intra-op, Routine Given 03/11/2024 12:59 PM EDT 0.2 mg Given 03/11/2024 12:47 PM EDT 0.3 mg lactated ringers infusion Intravenous, CONTINUOUS PRN, Starting on Sun03/11/24 at 1117, Until Sun03/11/24 at 1406, Anesthesia Intra-op New Bag 03/11/2024 1:11 PM EDT New Bag 03/11/2024 11:17 AM EDT lidocaine (pf) (Xylocaine) (20 mg/mL) 2% injection syringe Intravenous, PRN, Starting on Sun03/11/24 at 1125, Until Sun03/11/24 at 1406, Anesthesia Intra-op, Routine Given 03/11/2024 11:25 AM EDT 60 mg midazolam (pf) (Versed) (1 mg/mL) multi-dose injection Intravenous, PRN, Starting on Sun03/11/24 at 1117, Until Sun03/11/24 at 1406, Anesthesia Intra-op, Routine Given 03/11/2024 11:19 AM EDT 1 mg Given 03/11/2024 11:17 AM EDT 1 mg ondansetron (pf) (Zofran) (2 mg/mL) injection Intravenous, PRN, Starting on Sun03/11/24 at 1348, Until e 03/11/24 at 1407, Anesthesia Intra-op, Routine Given 03/11/2024 1:48 PM EDT 4 mg PHENYLephrine (Brown-Synephrine) (80 mcg/mL) in sodium chloride 0.9% 250 mL infusion Intravenous, CONTINUOUS PRN, Starting on e 03/11/24 at 1209, Until Sun03/11/24 at 1406, Anesthesia Intra-op, Routine New Bag 03/11/2024 12:09 PM EDT 20 mcg/min 15 mL/hr propofoL (Diprivan) 10 mg/mL bolus injection (Anesthesia) Intravenous, PRN, Starting on Sun03/11/24 at 1125, Until Sun03/11/24 at 1406, Anesthesia Intra-op Given 03/11/2024 11:25 AM EDT 150 mg rocuronium (Zemuron) (10 mg/mL) multi-dose injection Intravenous, PRN, Starting on Sun03/11/24 at 1126, Until Sun03/11/24 at 1406, Anesthesia Intra-op, Routine Given 03/11/2024 1:09 PM EDT 10 mg Given 03/11/2024 12:25 PM EDT 10 mg Given 03/11/2024 11:50 AM EDT 20 mg sugammadex (Bridion) 100 mg/mL injection Intravenous, PRN, Starting on Sun03/11/24 at 1341, Until Sun03/11/24 at 1406, Anesthesia Intra-op, Routine Given 03/11/2024 1:41 PM EDT 200 mg documented in this encounter Care Teams Pest Controller Assistant Relationship Specialty Start Date End Date Seema Francis PA [address] [place] [phone] PCP - General Family Medicine 01/24/24 documented as of this encounter
--- OUTSIDE RECORDS SUMMARY | 2024-03-31 16:52 | XMS_ITS | Encounter Summary ---
Author Organization [facility] [place] [address] Care Team Providers Care Athletic Field Custodian Name Role Phone Seema Francis Primary Care Provide r Encounter Details Date Type Department Care Team (Late Contact Info) Description 01/24/2024 Telephone [place] [phone] Rin Rockwell Social History Tobacco Use Types Packs/Day Years [...] encounter Miscellaneous Notes * Telephone Encounter - Rin Rockwell - 01/24/2024 12:07 PM EDT Aleydasveta, Patient is scheduled to have surgery on 03/11/2024 . Follow up appointment is as follows: Postoperative Follow-Up around 1 week with KELLEE/PA provider.. Thank you!! documented in this encounter Plan of Treatment Upcoming Encounters Date Type Department Care Team (Late st Contact Info) Description 04/02/2024 1:30 PM EDT Scheduled View Only Radiation Oncology at [address] [phone] Lito Nurse Howard 04/02/2024 2:00 PM EDT Office Visit Radiation Oncology at [address] [phone] Deangelo Leal MD [facility] [place] [address] 04/07/2024 11:00 AM EST Office Visit Hematology/Oncology at [address] [phone] Wilman Rendon MD [address] [facility] HEMATOLOGY & [place] [address] Genet Taylor APRN [facility] [place] [address] 04/07/2024 12:30 PM EST Infusion Hematology Oncology at [address] [phone] 04/25/2024 11:00 AM EST Office Visit [place] [phone] Nancy Garrison PA [facility] [place] [address] documented as of this encounter Visit Diagnoses Not on filedocumented in this encounter Care Teams Athletic Field Custodian Relationship Specialty Start Date End Date Seema Francis PA [address] [place] [phone] PCP - General Family Medicine 01/24/24 documented as of this encounter
--- OUTSIDE RECORDS SUMMARY | 2024-03-31 16:52 | XMS_ITS | Encounter Summary ---
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 Leonarda Larry MD [facility] [place] [address] Deangelo Leal MD [facility] [place] [address] Referral ID Status Reason Start Date Expiration Date Visits Requested Visits Authorized [id number] Authorized Consult, Test & Treat 03/19/2024 03/19/2025 1 1 * Consultation (Routine) - Closed Specialty Diagnoses / Procedures Referred By Contac t Referred To Contact Hematology and Oncology Diagnoses 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 Suman Lopez MD [facility] [place] [address] [facility] Onc [address] [phone] Referral ID Status Reason Start Date Expiration Date V isits Requested Visits Authorized [id number] Closed Consult, Test & Treat 03/19/2024 03/19/2025 1 1 Encounter Details Date Type Department Care Team (Late Contact Info) Description 03/19/2024 Orders [place] [phone] Leonarda Larry MD [facility] [place] [address] 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 Social History Tobacco Use Types Packs/Day Years Used Date Smoking Tobacco: Every Day Cigarettes 0.5 27 Smokeless Tobacco: Never Alcohol Use Standard Drinks/Week Comments Yes 42 (1 standard drink = 0.6 oz pu re alcohol) 6 beers/day [facility] Inpatient Questions Answer Date Recorded Prevent Contact [...] EDT Scheduled View Only Radiation Oncology at [address] [phone] [place] 04/02/2024 2:00 PM EDT Office Visit Radiation Oncology at [address] [phone] Deangelo Leal MD [facility] [place] [address] 04/07/2024 11:00 AM EST Office Visit Hematology/Oncology at [address] [phone] Wilman Rendon MD [address] [facility] HEMATOLOGY & [place] [address] Genet Taylor APRN [facility] [place] [address] 04/07/2024 12:30 PM EST Infusion Hematology Oncology at [address] [phone] 04/25/2024 11:00 AM EST Office Visit [place] [phone] Nancy Garrison PA [facility] [place] [address] Scheduled Referrals Name Type Priority Associated Diagnoses Orde r Schedule Referral to Head and Neck Oncology Outpatient Referral Routine 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
--- OUTSIDE RECORDS SUMMARY | 2024-03-31 16:52 | XMS_ITS | Encounter Summary ---
Author Organization [facility] [place] [address] Care Team Providers Care Log Data Technician Name Role Phone Unknown Primary Care Provider Unavailabl e Reason for Visit * Reason Onset Date Comments Other 03/31/2021 Encounter Details Date Type Department Care Team (Late st Contact Info) Description 03/31/2021 Telephone [place] [phone] Flaco Gomez MD [facility] [place] [address] Other Social History Tobacco Use Types Packs/Day Years Used Date Smoking Tobacco: Every Day Cigarettes 0.5 27 Smokeless Tobacco: Never Sex and Gender Information Value Date Recorded Sex Assigned at Not on file Gender Identity Not on file Sexual Orientation Straight 02/21/2021 6: 09 PM EDT documented as of this encounter Miscellaneous Notes * Telephone Encounter - Susan Pino RN - 03/31/2021 1:21 PM EDT Spoke to patient's . Made aware that per Dr. Gomez: Would you please tell these people that I have done all I can at a distance. ??He seems better on the combination of Tegretol and Lamictal. ??If they want further efforts at improvement, I have to see him in person and that is it. Verbalized understanding. She asked to have the 05/02 in person appointment to be cancelled. And that the patient will instead be seeing a local Neurologit. Jeimy was grateful for the call back and the care from Dr. Gomez. * Telephone Encounter - Dipika Basurto - 03/31/2021 12:42 PM EDT Call Center / [facility] Message - General Issue Call Provider patient sees in Clinic: Patricia Caller and relationship (if other than patient-full name): [employer]imy [employer] and position if other than patient or family: Call back number: [phone] Ok to leave a message: y Reason for call: Patients calling to see if the patient will still be able to be seen for TH visits, the patient has chronic pain and the drive is a lot for him. Disposition of Call (choose one and remove others): ??? Routine Message sent to the Nurse: y Nurse/Info Print Press Operator contacted via: Message: y Call: n Pager: n documented in this encounter Plan of Treatment Upcoming Encounters Date Type Department Care Team (Late st Contact Info) Description 04/02/2024 1:30 PM EDT Scheduled View Only Radiation Oncology at [address] [phone] [facility] Howard Cherry 04/02/2024 2:00 PM EDT Office Visit Radiation Oncology at [address] [phone] Deangelo Leal MD [facility] [place] [address] 04/07/2024 11:00 AM EST Office Visit Hematology/Oncology at [address] [phone] Wilman Rendon MD [facility] HEMATOLOGY & [place] [address] Genet Taylor APRN [facility] [place] [address] 04/07/2024 12:30 PM EST Infusion Hematology Oncology at [address] [phone] 04/25/2024 11:00 AM EST Office Visit [place] [phone] Nancy Garrison PA [facility] [place] [address] documented as of this encounter Visit Diagnoses Not on filedocumented in this encounter Care Teams Log Data Technician Relationship Specialty Start Date End Date Unknown None PCP - General 03/27/17 01/23/24 documented as of this encounter
--- OUTSIDE RECORDS SUMMARY | 2024-03-31 16:52 | XMS_ITS | Encounter Summary ---
Author Organization [facility] [place] [address] Care Team Providers Care Utility Service Worker Name Role Phone Seema Francis Primary Care [...] Lopez MD [facility] [place] [address] [facility] Referral ID Status Reason Start Date Expiration Date Visits Re quested Visits Authorized [id number] 1 1 Encounter Details Date Type Department Care Team (Latest Contact Info) Description 03/11/2024 8:29 AM EDT - 03/11/2024 2:45 PM EDT Hospital [place]counter [place] [address] Suman Lopez MD [facility] [place] [place] [address] Orbital mass; Mass of sinus; Chronic maxillary sinusitis; Chronic ethmoidal sinusitis; Lesion of soft palate Discharge Disposition: Home Social History Tobacco Use [...] Sign Reading Time Taken Comments Blood Pressure 156/90 03/11/2024 2:45 PM EDT Pulse 72 03/11/2024 2:45 PM EDT Temperature 36.3 ??C (97.3 ??F) 03/11/2024 2:45 PM ED T Respiratory Rate 14 03/11/2024 2:45 PM EDT Oxygen Saturation 99% 03/11/2024 2:45 PM EDT Inhaled Oxygen Concentration - - Weight 59.5 kg (131 lb 1.6 oz) 03/11/2024 10:36 AM EDT Height 172.7 cm (5' 8) 03/11/2024 10:36 AM EDT Body Mass Index 19.93 03/11/2024 10:36 AM EDT documented in this encounter Discharge Instructions * Patient Instructions* Leonarda Larry MD - 03/11/2024 1:26 PM EDT Images from the original note were not included. Instructions Following Nasal Surgery What to Expect Drainage: You can expect some bloody mucus drainage from your nose for up to one week after surgery. This drainage will be greatest the first 3 days after surgery, during which time you may wish to keep a gauze bandage taped beneath your nose. We also took biopsies from the back of your mouth, you will likely have blood tinged spit for up to2 weeks. You have packing in your left nose that will slowly absorb over time. Some of it may fall out, it can look like a red sponge, white sponge or like black debris, this is normal. Pain: Pain following nasal surgery is usually [...] two weeks, there are no limitations. Medications If you are normally on a nasal steroid spray you can restart this at any time after surgery. What to Look For Please [...] sale packets such as those sold by [employer] can be purchased at most drug stores, [...] before using again. documented in this encounter Medications at Time of Discharge [...] route 2 times daily as needed (nosebeed). [place] into each nostril. 30 mL 03/11/2024 03/31/2024 documented as of this encounter H&P Notes * Leonarda Larry MD - 03/11/2024 10:19 AM EDT OTOLARYNGOLOGY - HEAD & NECK SURGERY INTERVAL H&P NOTE Name: Robi Mccall Age/Sex: 58 y.o. male Attending: Suman Lopez MD Hospital Day: 1 Day of Surgery Interval History Please see clinic/scanned H&P dated 02/25. In brief, Robi Mccall presents today for left sinus endoscopy, orbital wall decompression and biopsy with direct laryngoscopy and possible palate biopsy. There have been no changes to his history. Physical Exam No data found. Gen: No acute distress, alert and answers questions appropriately CV: Regular rate Pulm: Unlabored breathing Abd: Abdomen soft and non-tender Ext: No peripheral edema ASSESSMENT & PLAN Plan for left sinus endoscopy, orbital wall decompression and biopsy with direct laryngoscopy and possible palate biopsy. Consent signed, dated, placed in chart Ok to proceed with scheduled operation. Leonarda Larry MD, PGY5 03/11/24 10:19 AM ENT Team Pager: [phone] Associated attestation - Suman Lopez MD - 03/11/2024 1:44 PM EDT I, Dr. Lopez, saw and examined this patient with Dr. Leonarda Larry. I performed the procedureI reviewed the note above and made revisions as needed and I agree with the plan as stated above. Patient reports some subjective improvement in diplopia, however there is persistent gaze restriction inferiorly and medially on the left with associated proptosis. No stridor or stertor. There is new bilateral neck lymphadenopathy in lateral neck levels IIA/B,III,KALIA. Treatment options were reviewed including direct laryngoscopy with biopsy and left endoscopic sinussurgery with intraoperative image guidance, septoplasty and left medial orbital wall decompression for biopsy of orbital component of tumor. Surgery was reviewed in detail including risks and possible benefits. Risks discussed included but were not limited to bleeding, infection, septal perforation, damage to eye/vision, worsening double vision, retrobulbar hematoma, damage to brain, and cerebrospinal fluid leak leak. We also discussed the variable outcomes of surgery based on underlying pathophysiology and the need to have realistic expectations. Questions answered. I discussed with patient and family the need for completion of staging imaging given the new progression of disease involvingthe neck to include PET/CT and CT neck/chest with contrast to be coordinate at [facility]. We will coordinate discussion of his pathology and imaging at our next appropriate multidisciplinary tumor board co nference. Suman Lopez M.D. [facility] Skull Base Surgery Division of Otolaryngology - Head and Neck Surgery [facility] documented in this encounter Miscellaneous Notes * Op Note - Suman Lopez MD - 03/11/2024 11:39 AM EDT PATIENT NAME: Robi Mccall SERVICE: Otolaryngology SURGEON: Suman Lopez MD [employer]ISH[employer] SURGEONS: Leonarda Larry MD ANESTHESIA: General endotracheal. 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 and gaze restriction in medial and inferior gazeon the left side Chronic sinusitis POSTOPERATIVE DIAGNOSIS: Same PROCEDURE: Left endoscopic maxillary antrostomy with tissue removal, CPT 57170-IA Left endoscopic total ethmoidectomy, CPT 89021-XB Direct laryngoscopy operative with biopsy, CPT 27020 Stereotactic image guidance, CPT 41043 ESTIMATED BLOOD LOSS: 30 mL RETAINED ITEMS: None SPECIMENS: ID Type Source Tests Collected by Time Destination 1 : Right medial hypopharyngeal mass Tissue Pharynx SURGICAL PATHOLOGY Suman Lopez MD 144 2 : Right posterior pharyngeal wall Tissue Pharynx SURGICAL PATHOLOGY Suman Lopez MD 03/11/2024 1145 3 : Tissue Soft Palate, Midline SURGICAL PATHOLOGY Suman Lopez MD 03/11/2024 1147 4 : Tissue Tonsil, Right SURGICAL PATHOLOGY Suman Lopez MD 03/11/2024 1155 5 : Tissue Sinus Contents, Left SURGICAL PATHOLOGY Suman Lopez MD 03/11/2024 1306 6 : Left maxillary sinus contents Tissue Sinus, Maxillary, Left SURGICAL PATHOLOGY Suman Lopez MD 03/11/2024 1310 COMPLICATIONS: None INDICATIONS: Robi Mccall is a 58 y.o. male who has failed medical therapy and presents todayfor surgical management. FINDINGS: Direct laryngoscopy with biopsy of right [...] gross disease biopsied within the paranasal sinuses. DESCRIPTION OF PROCEDURE: Robi Mccall was identified in the preoperative holding area, where the informed consent was reviewed, including a re-review of the risks, benefits and alternatives of the procedure to include bleeding, infection, injury to the eye/visual loss/double vision, cerebrospinal fluid (CSF) leak, tearing, altered smell and taste, recurrent symptoms, and need for further surgery. The patient wishedto proceed as scheduled. The patient was brought to the operative room by Anesthesia, laid supine on the operating table, general anesthesia was induced and the patient was intubated orotracheally. The patient was turned toward the surgeons, and a time-out was performed with all members of the surgical team present. The patient was prepped and draped in the standard fashion. Topical epinephrine was used to decongest the nose and was used throughout the case for hemostasis. The image guidance machine was brought into the field, registered and its accuracy verified. It was used throughout the case for confirmation of skull base and orbital anatomy. Vasoconstriction was performed then surgery c ommenced as follows: Direct laryngoscopy was performed. A Reina valleculascope was used for the laryngoscopy. Visualization was carried out utilizing the laryngeal telescope. Biopsies were taken with a cupped biopsy forceps and submitted to pathology for permanent analysis. See above findings for specific biopsy site(s). Hemostasis was maintained with pledgets soaked in adrenaline. Visualization was also performedwith a Ada-Alton retractor. Attention was turned to the left endoscopic endonasal approach for decompression and biopsy of medial orbital wall-sinonasal mass. Due to obstructive deviation of the septum, a septoplasty was performed. A hemitransfixion incision was made on the left side. With the Maykel elevator, the submucoperichondrial plane was identified and dissected on the left side, all the way to the posterior bony septum. A cartilaginous incision was made with the Maykel, leaving at least 1 cm of caudal septal strutfor tip support. The submucoperichondrial plane was identified and dissected on the right side to the posterior bony septum. A window was then cut out of the cartilaginous septum and removed. Bony deviations were identified and removed with gentle dissection to preserve the integrity of the mucosalflaps, and superior cuts were made with the Jesus-Seferino forceps. After all the deviated portions were removed, a small drainage hole was made in the eft mucosal flap to prevent development of a septal hematoma. The flaps were re-approximated and the donna-transfixion incision was closed with 4-O chromic suture in an interrupted fashion. The left inferior turbinate was hypertrophied and obstructing the airway, therefore it was outfractured with good result. Maxillary antrostomy was performedon the left side. Using the Van Buren probe, the ethmoid infundibulum was gently dilated. The inferior aspect of the uncinate was removed using the back-biter. The maxillary sinus natural ostium was visualized and the Van Buren probed used to dilated the natural ostium posteriorly. The maxillary antrostomy was enlarged by complete removal of the uncinate process and posterior fontanelle. Friable tumor within the left nasal cavity along middle meatus, ethmoid infundibulum, roof of the left maxillary sinusand ethmoid cavity biopsied. The anterior ethmoidectomy was then performed on the left side. The tip of the J-curette was placed into the retrobullar recess and the bulla ethmoidalis was fractured forward. With the Kerrison forceps, the bulla ethmoidalis was taken up towards the skullbase and laterally to the lamina papyracea. The loose tissue was then removed using the microdebrider. A posteriorethmoidectomy was then performed on the left side. Using the J-curette, the basal lamella was entered and fractured forward to gain access into the posterior ethmoidal compartment. With the Kerrison forceps, the basal lamella opening was enlarged to the skull base superiorly and the lamina papyracea laterally. The superior turbinate was identified. All loose tissue was removed with a microdebrider. The decision was made not to proceed with left orbital decompression/biopsy given the gross disease biopsied within the paranasal sinuses. Absorbable SurgiFlo, Surgicel and PosiSep X dressing was placed. There were no complications of theprocedure. Dr. Lopez was present and scrubbed for the entirety of the procedure. documented in this encounter Plan of Treatment Upcoming Encounters Date Type Department Care Team (Late st Contact Info) Description 04/02/2024 1:30 PM EDT Scheduled View Only Radiation Oncology at [address] [phone] [place] [facility] 04/02/2024 2:00 PM EDT Office Visit Radiation Oncology at [address] [phone] Deangelo Leal MD [facility] [place] [address] 04/07/2024 11:00 AM EST Office Visit Hematology/Oncology at [address] [phone] Wilman Rendon MD [address] [facility] HEMATOLOGY & [place] [address] Genet Taylor APRN [facility] [place] [address] 04/07/2024 12:30 PM EST Infusion Hematology Oncology at [address] [phone] 04/25/2024 11:00 AM EST Office [place] [address] Nancy Garrison PA [facility] [place] [place] [address] Pending Results Name Type Priority Associated Diagnoses Date /Time Angiotensin Converting Enzyme Lab Routine Orbital mass 03/11/2024 10:51 AM EDT Scheduled Orders Name Type Priority Associated Diagnoses Orde r Schedule Angiotensin Converting Enzyme Lab Routine Orbital mass 1 Occurrences starting 03/11/2024 until 03/11/2024, 1 completed documented as of this encounter Procedures Procedure Name Priority Date/Time Associated Diagnosis Comments CHROMOSOME ANALYSIS, ACQUIRED ([facility]) Routine 03/11/2024 2:40 [...] Endoscopy Max Antrost W/Rmvl Tiss Max Sinus (25760) Yes 03/11/2024 11:18 AM EDT Orbital mass Mass of sinus Chronic maxillary sinusitis Chronic ethmoidal sinusitis Lesion of soft palate MODIFIER,STEALTH 2,KINEVO Yes 2023 11:18 AM EDT Orbital mass Mass of sinus Chronic maxillary sinusitis Chronic ethmoidal sinusitis Lesion of soft palate Stereotactic Cptr Asstd Px Cranial, Extradural (12949) Yes 03/11/2024 11:18 AM EDT Orbital mass Mass of sinus Chronic maxillary sinusitis Chronic ethmoidal sinusitis Lesion of soft palate Laryngoscopy Direct Operative W/Biopsy (98302) Yes 03/11/2024 11:18 AM EDT Orbital mass Mass of sinus Chronic maxillary sinusitis Chronic ethmoidal sinusitis Lesion of soft palate Nasal Scopy, Remv Totl Ethmoid (51516) Yes 03/11/2024 11:18 AM EDT Orbital mass Mass of sinus Chronic maxillary sinusitis Chronic ethmoidal sinusitis Lesion of soft palate CENTROMERE ANTIBODY (DH) Routine 10:51 AM EDT Orbital mass SCL-70 ANTIBODY () Routine 03/11/2024 10:51 AM EDT Orbital mass U1RNP ANTIBODY Routine 03/11/2024 10:51 AM EDT Orbital mass SM(PALMA) ANTIBODY Routine 03/11/2024 10 :51 AM EDT Orbital mass SS-B/LA ANTIBODY () Routine 03/11/2024 10:51 AM EDT Orbital mass SS-A/RO ANTIBODY (DH) Routine 03/11/2024 10:51 AM EDT Orbital mass ANTINUCLEAR ANTIBODY SCREEN (DH) Routine 03/11/2024 10:51 AM EDT Orbital mass CRP, ACUTE INFLAMMATION Routine 03/11/20 24 10:51 AM EDT Orbital mass IGG SUBCLASSES Routine 03/11/2024 10:51 AM EDT Orbital mass JOAN 1 ANTIBODY Routine 03/11/2024 10:51 AM EDT Orbital mass CYTOPLASMIC NEUTROPHILIC AB Routine 03/11/2024 10:51 AM EDT Orbital mass PROTEINASE-3 ANTIBODY Routine 03/11/2024 10:51 AM EDT Orbital mass MYELOPEROXIDASE AB Routine 03/11/2024 10 :51 AM EDT Orbital mass SEDIMENTATION RATE Routine 03/11/2024 10 :51 AM EDT Orbital mass RHEUMATOID FACTOR, QUANT Routine 024 10:51 AM EDT Orbital mass STEREOTACTIC COMPUTER-ASSTD NAVIGATIONAL CRANIAL EXTRADURAL Routine 03/11/2024 10:14 AM EDT Orbital mass Mass of sinus Chronic maxillary sinusitis Chronic ethmoidal sinusitis Lesion of soft palate LARYNGOSCOPY, DIRECT, OPERATIVE, WITH BIOPSY Routine 03/11/2024 10:14 AM EDT Orbital mass Mass of sinus Chronic maxillary sinusitis Chronic ethmoidal sinusitis Lesion of soft palate documented in this encounter Results * Chromosome Analysis, Acquired ([facility]) (03/11/2024 2:40 [...] LES REF LAB [facility] [address] [place] [address], [facility] * HPV DNA Genotyping (High Risk) (03/11/2024 1:10 PM EDT) Indication for Study Invasive poorly differentiated squamous cell carcinoma 03/26/2024 5:39 PM EDT [facility] Specimen Tissue Case/Block ID [id number] 03/26/2024 5:39 PM EDT [facility] HPV HR Genotype Result Negative for all high-risk HPV genotypes analyzed 03/26/2024 5:39 PM EDT [facility] HPV HR Genotype Interpretation Results indicate that the submitted tissue contained none of the 14 HPV high-risk genotypes detected by this assay. Not all high-risk HPV genotypes are included in this test. 03/26/2024 5:39 PM EDT [facility] HPV HR Genotype Methods Used Highly purified genomic DNA was extracted from a formalin fixed paraffin embedded tissue section after lysing of the cells. (Of note: in instances where the result was QNS, Genomic DNA was not analyzed or failed analysis.) HPV genotyping was performed using the [employer]x MeltPro High-Risk HPV Genotyping Test that assays [...] testing should be considered. 03/26/2024 5:39 PM EDT [facility] CGAT Disclaimer This test was developed and its performance characteristics determined by [facility] [employer] (CGAT) at [facility], as required by the Clinical Laboratory Improvement [...] test's accuracy and precision. 03/26/2024 5:39 PM EDT [facility] Tissue LEFT MAXILLARY SINUS STRUCTURE / Unknown 03/11/2024 1:10 PM EDT 03/18/2024 10:28 AM EDT Suman Lopez MD MOLECULAR ORDERABLES Performing Organization Address City/State/[facility] Co de Phone Number [facility] [place] [address] * Immunophenotyping Flow Cytometry (03/11/2024 1:10 PM EDT) Final Diagnosis - Too few events detected for meaningful immunophenotypic analysis(see Comment). 03/12/2024 2:01 PM EDT [facility] Signing Pathologist This result has been reviewed by Jose Alfredo Mireles DO on 03/12/24 at 2:01 PM. 03/12/2024 2:01 PM EDT [facility] Discussion Too few events were detected (<100 viable cells of interest, based on 3.9% viable cells) for meaningful analysis. Correlation with morphologic interpretation of the biopsy is recommended. 03/12/2024 2:01 PM EDT [facility] Lymphocyte % 29.7 % 03/12/2024 2:01 PM [facility] CD3+ % 93.0 % 03/[facility]2024 [facility] CD19+ % 0.0 % 03/12/2024 2:[facility] CD56+ % 0.0 % 03/12/2024 2:01 PM EDT [facility] B-Cell:T-Cell Ratio 0.0 03/12/2024 2:01 PM EDT [facility] CD4:CD8 Ratio 0.0 03/12/2024 2:01 PM EDT [facility] Cell Viability % 3.9 % 03/12/2024 2:01 PM EDT [facility] Specimen Processing Cells for immunophenotypic analysis were derived from tissue. The following markers were assessed: CD2, CD3, CD4, CD5, CD7, CD8, CD10, CD19, CD45, CD56, kappa light chain, and lambda light chain. 03/12/2024 2:01 PM T [facility] Disclaimer Flow analysis is an ancillary study. A definite diagnosis requires correlation with the morphologic features of this process and if necessary, correlation with other ancillary studies like immunohistochemist ry, enzyme cytochemistry and/or cyto/molecular genetics. This test was developed and its performance characteristics determined by the Clinical Flow Cytometry Laboratory at [facility]. It has not been cleared or approved [...] clinical laboratory testing. 03/12/2024 2:01 PM EDT [facility] Clinical Information Orbital mass with sinonasal extension. 03/12/2024 2:01 PM EDT [facility] Tissue 03/11/2024 1:10 PM EDT 03/11/2024 1:25 PM EDT Suman Lopez MD HEMATOLOGY ORDERABLE S [facility] [place] [address] * (ABNORMAL) Surgical Pathology (03/11/2024 11:44 AM EDT) Case Report Surgical Pathology Report ? Case: [id number] ? Authorizing Provider: ??Suman Lopez MD ? Collected: ? 03/11/2024 1144 ? Ordering Location: ? Main Operating Room [place] ?? Received: ?03/11/2024 1320 ? [facility] ? Pathologist: ? Michelle Trejo MD ? Specimens: ?? A) - Pharynx, Right medial hypopharyngeal mass ? B) - Pharynx, Right posterior pharyngeal wall ? C) - Soft Palate, Midline ? D) - Tonsil, Right ? E) - Sinus Contents, Left ? F) - Sinus, Maxillary, Left, Left maxillary sinus contents ? 03/18/2024 8:48 AM EDT [facility] Final Diagnosis A. Pharynx, right medial hypopharyngeal mass, biopsy: - Invasive squamous cell carcinoma, focally keratinizing, poorly differentiated. B. Pharynx, right posterior pharyngeal wall, biopsy: - Moderate keratinizing squamous dysplasia. C. Soft palate, midline, biopsy: - Severe squamous dysplasia. D. Tonsil, right, biopsy: - Invasive squamous cell carcinoma, [id number], keratinizing type. - Lymphovascular space invasion is present. E. Sinus contents, left, biopsy: - Invasive poorly differentiated squamous cell carcinoma. F. Sinus contexts, left maxillary, biopsy: - Invasive poorly differentiated squamous cell carcinoma. 03/18/2024 8:48 AM [facility] Discussion The tumor shows a range of morphologic features in the above specimens, ranging from moderately differentiated and keratinizing to morphologically poorly differentiated with clear cell features. Given the presence of p16 reactivity, genotyping for high-risk HPV is pending. 03/18/2024 8:48 AM [facility] Additional Studies Task ID IHC/Special Stains Result D1-2 p16 Positive E2-2 CK5 Positive E2-3 p40 Positive E2-4 NUT Negative 03/18/2024 8:48 AM [facility] Disclaimer(s) Formalin-fixed, paraffin-embedded tissue sections are [...] and other diagnostic tests. 03/18/2024 8:48 AM [facility] Clinical Information A. Pharynx, Right medial hypopharyngeal mass Mass B. Pharynx, Right posterior pharyngeal wall Mass C. Soft Palate, Midline, Mass D. Tonsil, Right, Mass E. Sinus Contents, Left, Mass F. Sinus, Maxillary, Left, Left maxillary sinus contents Mass Rule out malignancy Left maxillary sinus contents for lymphoma workup 03/18/2024 8:48 AM [facility] Gross Description A. Pharynx, Right medial [...] Entirely submitted in 5 cassettes labeled F1-F5. [facility] 03/18/2024 8:48 AM EDT [facility] Result Note THIS RESULT REQUIRES PHYSICIAN/KELLEE FOLLOW UP(A) 03/18/2024 8:48 AM EDT [facility] Tissue PHARYNGEAL STRUCTURE / Unknown [...] lymphoma workup Suman Lopez MD PATHOLOGY/CYTOLOGY O RDERABLES Performing Organization Address [facility] Co de Phone Number [facility] [place] [address] * U1RNP Antibody (03/11/2024 10:51 AM EDT) U1RNP Ab 0.80 <=10.00 unit/mL 03/13/2024 1:39 PM EDT [facility] Blood VENOUS BLOOD SPECIMEN / Unknown IP Care Team Draw / Unknown 03/11/2024 10:51 AM EDT 03/11/2024 10:56 AM EDT Narrative [facility] - 03/13/2024 1:39 PM EDT Reference Range: <5 - Negative ?? 5-10 - Equivocal ?? >10 - Positive ?? The U1RNP antibody result was generated using fluoroenzyme immunoassay on the [employer] 250 analyzer. The semi-quantitative test is designed to detect IgG antibodies in human serum that are reactive to the U1RNP protein. Suman Lopez MD IMMUNOLOGY ORDERABLE S Performing Organization Address [facility] Co de Phone Number [facility] [place] [address] * SM(Palma) Antibody (03/11/2024 10:51 AM EDT) Sm(Palma) Ab <0.70 <=10.00 unit/mL 03/13/2024 1:39 PM EDT [facility] Blood VENOUS BLOOD SPECIMEN / Unknown IP Care Team Draw / Unknown 03/11/2024 10:51 AM EDT 03/11/2024 10:56 AM EDT [facility] - 03/13/2024 1:39 PM EDT Reference Range: <7 - Negative 7-10 - Equivocal ?? >10 - Positive ?? The Sm antibody result was generated using fluoroenzyme immunoassay on the [employer] 250 analyzer. The semi-quantitative test is designed to detect IgG antibodies in human serum that are reactive to the Sm protein. Suman Lopez MD IMMUNOLOGY ORDERABLE S Performing Organization Address [facility] de Phone Number [facility] [address] * Scl-70 Antibody (03/11/2024 10:51 AM EDT) Scl-70 Ab <0.60 <=10.00 unit/mL 03/13/2024 1:39 PM EDT [facility] Blood VENOUS BLOOD SPECIMEN / Unknown IP Care Team Draw / Unknown 03/11/2024 10:51 AM EDT 03/11/2024 10:56 AM EDT [facility] LABORATORY - 03/13/2024 1:39 PM EDT Reference Range: <7 - Negative 7-10 - Equivocal >10 - Positive The Scl-70 antibody result was generated using fluoroenzyme immunoassay on the Phadia 250 analyzer. The semi-quantitative test is designed to detect IgG antibodies in human serum that are reactive to the Scl-70 protein. Suman Lopez MD IMMUNOLOGY ORDERABLE S Performing Organization Address [facility] Co de Phone Number [facility] [place] [address] * SS-B/La Antibody (03/11/2024 10:51 AM EDT) SS-B/La Ab <0.40 <=10.00 unit/mL 03/13/2024 1:39 PM EDT [facility] Blood VENOUS BLOOD SPECIMEN / Unknown IP Care Team Draw / Unknown 03/11/2024 10:51 AM EDT 03/11/2024 10:56 AM EDT Narrative [facility] - 03/13/2024 1:39 PM EDT Reference Range: <7 - Negative 7-10 - Equivocal >10 - Positive The SS-B antibody result was generated using fluoroenzyme immunoassay on the Phadia 250 analyzer. The semi-quantitative test is designed to detect IgG antibodies in human serum that are reactive to the SS-B (La) protein. Suman Lopez MD IMMUNOLOGY ORDERABLE S [facility] [place] [address] * (ABNORMAL) SS-A/Ro Antibody (03/11/2024 10:51 AM EDT) SS-A/Ro Ab 37.00(H) <=10.00 unit/mL 03/13/2024 1:39 PM EDT [facility] Blood VENOUS BLOOD SPECIMEN / Unknown IP Care Team Draw / Unknown 03/11/2024 10:51 AM EDT 03/11/2024 10:56 AM EDT Narrative [facility] - 03/13/2024 1:39 PM EDT Reference Range: <7 - Negative 7-10 - Equivocal >10 - Positive The SS-A antibody result was generated using fluoroenzyme immunoassay on the Phadia 250 analyzer. The semi-quantitative test is designed to detect IgG antibodies in human serum that are reactive to the SS-A (Ro) protein. Suman Lopez MD IMMUNOLOGY ORDERABLE S [facility] [place] [address] * Joan 1 Antibody (03/11/2024 10:51 AM EDT) Joan-1 Ab <0.30 <=10.00 unit/mL 03/13/2024 1:39 PM EDT [facility] Blood VENOUS BLOOD SPECIMEN / Unknown IP Care Team Draw / Unknown 03/11/2024 10:51 AM EDT 03/11/2024 10:56 AM EDT Narrative [facility] - 03/13/2024 1:39 PM EDT [...] SEND OUT ORDERAB LES Performing Organization Address [facility] de Phone Number [facility] [place] [address] * Centromere Antibody (03/11/2024 10:51 AM EDT) [facility] Centromere Ab <0.40 <=10.00 unit/mL 03/13/2024 1:39 PM EDT [facility] Blood VENOUS BLOOD SPECIMEN / Unknown IP Care Team Draw / Unknown 03/11/2024 10:51 AM EDT 03/11/2024 10:56 AM EDT Narrative [facility] - 03/13/2024 1:39 PM EDT [...] MD IMMUNOLOGY ORDERABLE S Performing Organization Address [facility] de Phone Number [facility] [place] [address] * (ABNORMAL) IgG Subclasses (03/11/2024 10:51 AM EDT) IgG 983 700 - 1,600 mg/dL 03/13/2024 9:39 AM EDT [facility] IgG 1 523.8 382.4 - 928.6 mg/dL 03/13/2024 9:39 AM EDT [facility] IgG 2 196.9(L) 241.8 - 700.3 mg/dL 03/13/2024 9:39 AM EDT [facility] IgG 3 18.3(L) 21.8 - 176.1 mg/dL 03/13/2024 9:39 AM EDT [facility] IgG 4 57.1 3.9 - 86.4 mg/dL 03/13/2024 9:39 AM EDT [facility] Blood VENOUS BLOOD SPECIMEN / Unknown IP Care Team Draw / Unknown 03/11/2024 10:51 AM EDT 03/11/2024 10:56 AM EDT Suman Lopez MD IMMUNOLOGY ORDERABLE S Performing Organization Address City/[facility]/ZIP Co de Phone Number [facility] [place] [address] * (ABNORMAL) CRP, acute inflammation (03/11/2024 10:51 AM EDT) [facility] C-Reactive Protein 17.1(H) <=4.9 mg/L 03/11/2024 11:46 AM EDT [facility] Blood VENOUS BLOOD SPECIMEN / Unknown IP Care Team Draw / Unknown 03/11/2024 10:51 AM EDT 03/11/2024 10:56 AM EDT Suman Lopez MD CHEMISTRY ORDERABLES [facility] [place] [address] * Sedimentation rate (03/11/2024 10:51 AM EDT) Pathologist [facility] Sedimentation Rate Automated 17 2 - 37 mm/hr 03/11/2024 1:48 PM EDT [facility] Blood VENOUS BLOOD SPECIMEN / Unknown IP Care Team Draw / Unknown 03/11/2024 10:51 AM EDT 03/11/2024 10:55 AM EDT Suman Lopez MD HEMATOLOGY ORDERABLE S Performing Organization Address City/[facility]/ZIP Co de Phone Number [facility] [place] [address] * Cytoplasmic Neutrophilic Ab (03/11/2024 10:51 AM EDT) Pathologist [facility] C-Anca May Negative Negative 03/13/2024 2:33 PM EDT [facility] [place] P-Anca May Negative Negative 03/13/2024 2:33 PM EDT [facility] [place] Comment: Negative for cANCA and pANCA patterns by immunofluorescence. ADDITIONAL INFORMATION This test was developed and its performance characteristics determined by [facility] in a manner consistent with CLIA requirements. This test has not been cleared or approved by the U.S. Food and Drug Administration. Blood VENOUS BLOOD SPECIMEN / Unknown IP Care Team Draw / Unknown 03/11/2024 10:51 AM EDT 03/11/2024 11:04 AM EDT Narrative [facility] [place] - 03/13/2024 2:33 PM EDT Test Performed by: [place] [address] Race Relations Professor: Bibi Kang Ph.D.; CLIA# [id number] Suman Lopez MD LAB SEND OUT ORDERAB LES Performing Organization Address City/[facility]/ZIP Co de Phone Number [facility] [address] * Myeloperoxidase Ab (03/11/2024 10:51 AM EDT) Pathologist [facility] Myeloperoxidase Antibody <0.2 <3.5 U/mL 03/12/2024 12:13 PM EDT [facility] Blood VENOUS BLOOD SPECIMEN / Unknown IP Care Team Draw / Unknown 03/11/2024 10:51 AM EDT 03/11/2024 10:56 AM EDT Narrative [facility] - 03/12/2024 12:13 PM EDT Reference Range: <3.5 - Negative 3.5-5.0 - Equivocal >5.0 - Positive Suman Lopez MD IMMUNOLOGY ORDERABLE S [facility] [place] [address] * Proteinase-3 Antibody (03/11/2024 10:51 AM EDT) Proteinase 3 Antibody <0.6 <2.0 U/mL 03/12/2024 12:13 PM EDT [facility] Blood VENOUS BLOOD SPECIMEN / Unknown IP Care Team Draw / Unknown 03/11/2024 10:51 AM EDT 03/11/2024 10:56 AM EDT Narrative [facility] - 03/12/2024 12:13 PM EDT Reference Range: <2.0 - Negative 2.0-3.0 - Equivocal >3.0 - Positive Suman Lopez MD IMMUNOLOGY ORDERABLE S Performing Organization Address City/[facility]/ZIP Co de Phone Number [facility] [place] [address] * Rheumatoid factor, quant (03/11/2024 10:51 AM EDT) Rheumatoid Factor 11 <=14 IU/mL 03/11/2024 3:25 PM EDT [facility] Blood VENOUS BLOOD SPECIMEN / Unknown IP Care Team Draw / Unknown 03/11/2024 10:51 AM EDT 03/11/2024 10:56 AM EDT Suman Lopez MD CHEMISTRY ORDERABLES [facility] [place] [address] * (ABNORMAL) Antinuclear Antibody Screen (APARNA) (03/11/2024 10:51 AM EDT) APARNA Ab Screen Positive( A) Negative 03/12/2024 12:13 PM EDT [facility] dsDNA Ab <0.6 <=15.0 IU/mL 03/12/2024 12:13 PM EDT [facility] Blood VENOUS BLOOD SPECIMEN / Unknown IP Care Team Draw / Unknown 03/11/2024 10:51 AM EDT 03/11/2024 10:56 AM EDT [facility] LABORATORY - 03/12/2024 12:13 PM EDT dsDNA [...] erythematosus. Suman Lopez MD IMMUNOLOGY ORDERABLE S [facility] [place] [address] documented in this encounter Visit Diagnoses Diagnosis Orbital mass Other orbital disorder Mass of sinus Swelling, mass, or lump in head and neck Chronic maxillary sinusitis Chronic ethmoidal sinusitis Lesion of soft palate documented in this encounter Administered Medications Inactive Administered Medications - up to 3 most recent administrations Medication Order MAR Action Action Date Dose Rate Site acetaminophen (Ofirmev) (1,000 mg/100 mL) infusion 1,000 mg 1,000 mg, Intravenous, at 400 mL/hr, Administer over 15 Minutes, ONCE, 1 dose, On Sun03/11/24 at 1430, Maximum dose of acetaminophen is 4000 mg from all sources in 24 hours. When ordered for pain, acetaminophen should be given even when other ordered pain medications are indicated. , Routine, Is ketorolac (Toradol) IV contraindicated? No, Can this patient tolerate oral medications or suppositories? No / ENT Surgery Given 03/11/2024 2:47 PM EDT 1,000 mg 400 mL/hr fentaNYL (PF) (50 mcg/mL) injection 25 mcg 25 mcg, Intravenous, EVERY 15 MIN PRN, 8 doses, Starting on Sun03/11/24 at 1508, Until Sun03/11/24 at 1940, Pain, PACU Recovery, Routine ondansetron (pf) (Zofran) (2 mg/mL) injection 4 mg 4 mg, Intravenous, ONCE PRN, 1 dose, Starting on Sun03/11/24 at 1508, Until Sun03/11/24 at 1940, Nausea, Vomiting, PACU Recovery oxyCODONE (Roxicodone) tablet 5 mg 5 mg, Oral, ONCE PRN, 1 dose, Starting on Sun03/11/24 at 1508, Until Sun03/11/24 at 1940, Pain, PACU Recovery, Routine oxyCODONE (Roxicodone) tablet 5-10 mg 5-10 mg, Oral, EVERY 3 HOURS PRN, Starting on Sun03/11/24 at 1412, Until Sun03/11/24 at 1940, Pain, Give 5 mg for pain 1-5; Give 10 mg for pain 6-10, Routine documented in this encounter Active and Recently Administered Medications Times are shown in EDT. Scheduled Medication Order 03/09/2024 03/10/2024 03/11/2024 acetaminophen (Ofirmev) (1,000 mg/100 mL) infusion 1,000 mg (COMPLETED) 1,000 mg, Intravenous, at 400 mL/hr, Administer over 15 Minutes, ONCE, 1 dose, On Sun03/11/24 at 1430, Maximum dose of acetaminophen is 4000 mg from all sources in 24 hours. When ordered for pain, acetaminophen should be given even when other ordered pain medications are indicated. , Routine, Is ketorolac (Toradol) IV contraindicated? No, Can this patient tolerate oral medications or suppositories? No / ENT Surgery 1447 (Given - Provid er: Isaura Wolff RN) ampicillin-sulbactam (Unasyn) 3 g vial attach to sodium chloride 0.9% 100 mL Mini-Bag Plus (COMPLETED) 3 g, Intravenous, ONCE, 1 dose, On Sun03/11/24 at 1045, Administer over 15 Minutes, Warning Vesicant/Irritant Medication Dosed in mg of Unasyn. Warning Vesicant/Irritant Medication , Indication for (Active or Suspected): Prophylaxis 1136 (New Bag - Prov ider: Lila Olivo) PRN Medication Order 03/09/2024 03/10/2024 03/11/2024 EPINEPHrine (Adrenalin) nasal solution (CANCELED) PRN, Starting on Sun03/11/24 at 1210, Until Sun03/11/24 at 1940, Intra-Operative (Intra-Procedure), Routine 1210 (Given - Provid er: Suman Lopez MD - Comment: soaked with patties and used through out the case) fentaNYL (PF) (50 mcg/mL) injection 25 mcg 25 mcg, Intravenous, EVERY 15 MIN PRN, 8 doses, Starting on Sun03/11/24 at 1508, Until Sun03/11/24 at 1940, Pain, PACU Recovery, Routine fluorescein (BioGlo) ophthalmic strip (CANCELED) PRN, Starting on Sun03/11/24 at 1210, Until Sun03/11/24 at 1940, Intra-Operative (Intra-Procedure), Routine 1210 (Given - Provid er: Suman Lopez MD) ondansetron (pf) (Zofran) (2 mg/mL) injection 4 mg 4 mg, Intravenous, ONCE PRN, 1 dose, Starting on Sun03/11/24 at 1508, Until Sun03/11/24 at 1940, Nausea, Vomiting, PACU Recovery oxyCODONE (Roxicodone) tablet 5 mg 5 mg, Oral, ONCE PRN, 1 dose, Starting on Sun03/11/24 at 1508, Until Sun03/11/24 at 1940, Pain, PACU Recovery, Routine oxyCODONE (Roxicodone) tablet 5-10 mg 5-10 mg, Oral, EVERY 3 HOURS PRN, Starting on Sun03/11/24 at 1412, Until Sun03/11/24 at 1940, Pain, Give 5 mg for pain 1-5; Give 10 mg for pain 6-10, Routine documented in this encounter Care Teams Utility Service Worker Relationship Specialty Start Date End Date Seema Francis PA [address] [place] [phone] PCP - General Family Medicine 01/24/24 documented as of this encounter
--- OUTSIDE RECORDS SUMMARY | 2024-03-31 16:52 | XMS_ITS | Encounter Summary ---
Author Organization Formerly [place] [address] Care Team Providers Care Ground Layer Name Role Phone Unknown Primary Care Provider Unavailabl e Encounter Details Date Type Department Care Team (Late Contact Info) Description 01/11/2024 10:45 PM EDT Ancillary Procedure Radiology Library at [facility] [place] [address] Jaylin Chapa MD [facility] [place] [address] Social History Tobacco Use Types Packs/Day Years [...] EDT Scheduled View Only Radiation Oncology at [address] [phone] St [facility] Cherry 04/02/2024 2:00 PM EDT Office Visit Radiation Oncology at [address] [phone] Deangelo Leal MD [facility] [place] [address] 04/07/2024 11:00 AM EST Office Visit Hematology/Oncology at [address] [phone] Wilman Rendon MD [address] [facility] HEMATOLOGY & [place] [address] Genet Taylor APRN [facility] [place] [address] 04/07/2024 12:30 PM EST Infusion Hematology Oncology at [address] [phone] 04/25/2024 11:00 AM EST Office [place] [phone] Nancy Garrison PA [facility] [place] [place] [address] documented as of this encounter Procedures Procedure Name Priority Date/Time Associated Diagnosis Comments FILM LIBRARY STORAGE ONLY MR HEAD Routine 01/11/2024 10:41 PM EDT documented in this encounter Results * Film Library- Storage Only MR Head (01/11/2024 10:41 PM EDT) Narrative RAD - 01/11/2024 10:41 PM EDT This exam is auto-finalizing. It's purpose is for storage only. Jaylin Chapa MD IMG FILM LIBRARY ORD ERABLES [place], [place] documented in this encounter Visit Diagnoses Not on filedocumented in this encounter Care Teams Ground Layer Relationship Specialty Start Date End Date Unknown None PCP - General 03/27/17 01/23/24 documented as of this encounter
--- OUTSIDE RECORDS SUMMARY | 2024-03-31 16:52 | XMS_ITS | Encounter Summary ---
Author Organization [facility] [place] [address] Care Team Providers Care Senior Data Modeler Name Role Phone Unknown Primary Care Provider Unavailabl e Encounter Details Date Type Department Care Team (Late Contact Info) Description 01/11/2024 2:50 PM EDT Ancillary Procedure Radiology Library at [facility] [place] [address] [facility] [place] [address] Social History Tobacco Use Types Packs/Day Years [...] EDT Scheduled View Only Radiation Oncology at [address] [phone] [facility] Cherry 04/02/2024 2:00 PM EDT Office Visit Radiation Oncology at [address] [phone] [facility] [place] [address] 04/07/2024 11:00 AM EST Office Visit Hematology/Oncology at [address] [phone] Wilman Rendon MD [address] [facility] HEMATOLOGY & [place] [address] [facility] [place] [place] [address] 04/07/2024 12:30 PM EST Infusion Hematology Oncology at [address] [phone] 04/25/2024 11:00 AM EST Office [place] [phone] [facility] [place] [address] documented as of this encounter Procedures Procedure Name Priority Date/Time Associated Diagnosis Comments FILM LIBRARY STORAGE ONLY CT HEAD Routine 01/11/2024 2:50 PM EDT documented in this encounter Results * Film Library- Storage Only CT Head (01/11/2024 2:50 PM EDT) 01/11/2024 10:3 9 PM EDT Narrative [facility] - 01/11/2024 10:39 PM EDT This exam is auto-finalizing. It's purpose is for storage only. Jaylin Chapa MD IMG FILM LIBRARY ORD ERABLES [place], [place] documented in this encounter Visit Diagnoses Not on filedocumented in this encounter Care Teams Senior Data Modeler Relationship Specialty Start Date End Date Unknown None PCP - General 03/27/17 01/23/24 documented as of this encounter
--- OUTSIDE RECORDS SUMMARY | 2024-03-31 16:52 | XMS_ITS | Encounter Summary ---
Author Organization [facility] [place] [address] Care Team Providers Care Locket Maker Name Role Phone Unknown Primary Care Provider Unavailabl e Reason for Visit * Reason Onset Date Comments Triage 03/03/2021 Encounter Details Date Type Department Care Team (Late st Contact Info) Description 03/03/2021 [place]phone [place] [phone] Flaco Gomez MD [facility] [place] [address] Triage Social History Tobacco Use Types Packs/Day Years Used Date Smoking Tobacco: Every Day Cigarettes 0.5 27 Smokeless Tobacco: Never Sex and Gender Information Value Date Recorded Sex Assigned at Not on file Gender Identity Not on file Sexual Orientation Straight 02/21/2021 6: 09 PM EDT documented as of this encounter Miscellaneous Notes * Telephone Encounter - Susan Pino RN - 03/03/2021 3:56 PM EDT Spoke to patient's . 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 Reports that patient continues to be unsteady wit his gait and with confusion. No other seizures noted. No changes in medication was done while in [facility]. She was told that patient's Sodium level was 128. Report forwarded to Dr. Gomez for review and comment. Pt/caller aware they will be called back with input when available and to call back in the interim if additional questions or change arise before they hear back from this office. Pt/caller agreeable to this plan. Called [facility] medical records, unable to fax the discharge summary and lab results as it's still pending for the provider to close the encounter. * Telephone Encounter - Dipika Basurto - 03/03/2021 2:37 PM EDT Call Center / [facility] Message Seizure(s) Provider patient sees in Clinic: Patricia Caller and relationship (if other than patient-full name): Jeimy Ok to leave a message: y Reason for call: Seizure / Seizures When did the Seizure occur: yesterday Additional information/questions for the nurse: Patients calling because patient ended up admitted into the ICU at [facility] With a cluster seizure yesterday 03/02 patient was discharged today 03/03 butis still very unsteady and loopy and not himself but patients states she put him to bed and heseems better but she is unsure if Dr. Gomez wants to increase his medication. Disposition of Call( select one): ??? Red arrow message to the nurse as the pt has had a seizure within the last hour ??? Routine message to nurse documented in this encounter Plan of Treatment Upcoming Encounters Date Type Department Care Team (Late st Contact Info) Description 04/02/2024 1:30 PM EDT Scheduled View Only Radiation Oncology at [address] [phone] [facility] 04/02/2024 2:00 PM EDT Office Visit Radiation Oncology at [address] [phone] Deangelo Leal MD [facility] [place] [address] 04/07/2024 11:00 AM EST Office Visit Hematology/Oncology at [address] [phone] Wilman Rendon MD [address] [facility] HEMATOLOGY & [place] [address] Genet Taylor APRN [facility] DR [place] [address] 04/07/2024 12:30 PM EST Infusion Hematology Oncology at [address] [phone] 04/25/2024 11:00 AM EST Office [place] [phone] Nancy Garrison PA [facility] [place] [address] documented as of this encounter Visit Diagnoses Not on filedocumented in this encounter Care Teams Locket Maker Relationship Specialty Start Date End Date Unknown None PCP - General 03/27/17 01/23/24 documented as of this encounter
--- OUTSIDE RECORDS SUMMARY | 2024-03-31 16:52 | XMS_ITS | Encounter Summary ---
Author Organization [facility] [place] [address] Care Team Providers Care Metallography Teacher Name Role Phone Unknown Primary Care Provider Unavailabl e Encounter Details Date Type Department Care Team (Latest Contact Info) Description 01/16/2024 Travel Social History Tobacco Use Types Packs/Day [...] EDT Scheduled View Only Radiation Oncology at [address] [phone] [facility] 04/02/2024 2:00 PM EDT Office Visit Radiation Oncology at [address] [phone] Deangelo Leal MD [facility] [place] [address] 04/07/2024 11:00 AM EST Office Visit Hematology/Oncology at [address] [phone] Wilman Rendon MD [address] [place] [address] HEMATOLOGY & [place] [address] Genet Taylor APRN [facility] [place] [address] 04/07/2024 12:30 PM EST Infusion Hematology Oncology at [address] [phone] 04/25/2024 11:00 AM EST Office [place] [phone] Nancy Garrison PA [facility] [place] [address] documented as of this encounter Visit Diagnoses Not on filedocumented in this encounter Care Teams Metallography Teacher Relationship Specialty Start Date End Date Unknown None PCP - General 03/27/17 01/23/24 documented as of this encounter
--- OUTSIDE RECORDS SUMMARY | 2024-03-31 16:52 | XMS_ITS | Encounter Summary ---
Author Organization [facility] [place] [address] Care Team Providers Care Stoker Installation Mechanic Name Role Phone Unknown Primary Care Provider Unavailabl e Reason for Visit * Reason Onset Date Comments Medication Problem 03/23/2021 Encounter Details Date Type Department Care Team (Late st Contact Info) Description 03/23/2021 [place] [phone] Flaco Gomez MD [facility] [place] [address] Medication Problem Social History Tobacco Use Types Packs/Day Years Used Date Smoking Tobacco: Every Day Cigarettes 0.5 27 Smokeless Tobacco: Never Sex and Gender Information Value Date Recorded Sex Assigned at Not on file Gender Identity Not on file Sexual Orientation Straight 02/21/2021 6: 09 PM EDT documented as of this encounter Miscellaneous Notes * Telephone Encounter - Susan Pino RN - 03/24/2021 8:46 AM EDT 03/24/21 0845 Spoke to patient's . Made aware that per Dr. Gomez: Yes it is okay to switch, the total milligram amount should be the same. ??But why do they want to switch. Is it a question ofcost. ??It does not make much difference medically either way. ??The quick release form is more likely to give you dizziness. Jeimy was ok with patient continuing with the current Carbamazepine formulation. Patient/caller advised to call for any other concerns. Patient/caller in agreement and verbalized understanding of the plan. * Telephone Encounter - Susan Pino RN - 03/23/2021 12:51 PM EDT Spoke to patient's . Reports that patient has been taking Carbamazepine 200 mg extended releasein the past. Jeimy wanted to check if patient is ok to transition to a regular formulation of Carbamazepine. Patient's advised that it is important for patient to schedule an in person appointment with Carol Gomez on his next follow up. She will talk to Robi regarding this and that she will call about. Report forwarded to Dr. Gomez for review and comment. Pt/caller aware they will be called back with input when available and to call back in the interim if additional questions or change arise before they hear back from this office. Pt/caller agreeable to this plan. * Telephone Encounter - Nicci Rand - 03/23/2021 9:25 AM EDT Call Center / [place] Message - Medication Issue (Not to be used for refill request or medication prior auth request) Provider patient sees in Clinic: Patricia Caller and relationship (if other than patient-full name): Jeimy, Call Back Number: [phone] Ok to leave a message: yes Reason for call: Jeimy states she picked up patient's carBAMazepine (TEGretol) 200 mg Tablet from pharmacy. Jeimy states that in the past patient was on a slow release carBAMazepine. Jeimy wants to make sure it is the right medication. Jeimy also stated that Dr Gomez had mentioned increasing l amoTRIgine (LaMICtal) 200 mg Tablet if patient had more seizures. Jeimy would like to know if Dr Gomez wants them to do that also. Message/information for the nurse: Name of Medication: carBAMazepine (TEGretol) 200 mg Tablet Issue with the medication: Jeimy states this should be slow release Name of Medication: lamoTRIgine (LaMICtal) 200 mg Tablet Issue with the medication: Does Dr Gmoez want this increased because of recent seizures. See noteon 03/03/21 I Disposition of Call: ?? Routine Message sent to the Nurse y Nurse contacted via: Message: y Call: n Pager: n documented in this encounter Plan of Treatment Upcoming Encounters Date Type Department Care Team (Late st Contact Info) Description 04/02/2024 1:30 PM EDT Scheduled View Only Radiation Oncology at [address] [phone] [place] 04/02/2024 2:00 PM EDT Office Visit Radiation Oncology at [address] [phone] Deangelo Leal MD [facility] [place] [address] 04/07/2024 11:00 AM EST Office Visit Hematology/Oncology at [address] [phone] Wilman Rendon MD [facility] [facility] DR HEMATOLOGY & [place] [address] Genet Taylor APRN [facility] [place] [address] 04/07/2024 12:30 PM EST Infusion Hematology Oncology at [address] [phone] 04/25/2024 11:00 AM EST Office [place] [phone] Nancy Garrison PA [facility] [place] [address] documented as of this encounter Visit Diagnoses Not on filedocumented in this encounter Care Teams Stoker Installation Mechanic Relationship Specialty Start Date End Date Unknown None PCP - General 03/27/17 01/23/24 documented as of this encounter
--- OUTSIDE RECORDS SUMMARY | 2024-03-31 16:52 | XMS_ITS | Encounter Summary ---
Author Organization [facility] [place] [address] Care Team Providers Care Ceiling Installer Name Role Phone Unknown Primary Care Provider Unavailabl e Encounter Details Date Type Department Care Team (Latest Contact Info) Description 01/14/2024 11:55 AM EDT Ancillary Procedure Radiology Library at [facility] [place] [phone] Suman Lopez MD [facility] [place] [address] Orbital mass; Mass of sinus Social History Tobacco Use Types Packs/Day Years [...] EDT Scheduled View Only Radiation Oncology at [address] [place] [address] [phone] [facility] 04/02/2024 2:00 PM EDT Office Visit Radiation Oncology at [address] [place] [address] [phone] Deangelo Leal MD [facility] [place] [address] 04/07/2024 11:00 AM EST Office Visit Hematology/Oncology at [address] [place] [address] [phone] Wilman Rendon MD [address] [facility] [place]OLOGY & [place] [address] Genet Taylor APRN [facility] [place] [address] 04/07/2024 12:30 PM EST Infusion Hematology Oncology at [address] [place] [address] [phone] 04/25/2024 11:00 AM EST Office [place] [phone] Nancy Garrison PA [facility] [place] [address] documented as of this encounter Procedures Procedure Name Priority Date/Time Associated Diagnosis Comments REQUEST FOR 2ND READ MR HEAD Routine 01/14/2024 11:40 AM EDT Orbital mass Mass of sinus documented in this encounter Results * Request for 2nd read MR Head (01/14/2024 11:40 AM EDT) WORKSTATION ID [id number] [facility] Anatomical Region Laterality Modality SO Impressions 01/14/2024 [...] who have questions please contact the health career services manager that requested your imaging first. ? Narrative 01/14/2024 12:07 PM EDT EXAMINATION: REQUEST FOR 2ND READ MR HEAD CLINICAL HISTORY: [facility], left periorbital mass; Sending Institution [facility], left periorbital mass; Date of exam [id number]; I believe a reinterpretation of this exam may alter care of Patient. Yes; [facility], left periorbital mass H05.89, Other disorders of [...] cerebral parenchyma itself. The pterygopalatine fossa and cow trimmer space have normal appearances. No distant abnormal intracranial enhancement is present. Intracranial flow-voids are of normal appearance. Procedure Note Shad Iqbal MD - 01/14/2024 EXAMINATION: REQUEST FOR 2ND READ MR HEAD CLINICAL HISTORY: [facility], left periorbital mass; Sending Institution [facility], left periorbital mass; Date of [id number]; I believe a reinterpretation of this exam may alter care of Patient.Yes; [facility], left periorbital mass H05.89, Other disorders of [...] the cerebralparenchyma itself. The pterygopalatine fossa and cow trimmer space have normal appearances.No distant abnormal intracranial [...] patients who have questions please contactthe health career services manager that requested your imaging first. Suman Lopez MD IMG OUTSIDE INTERPRE TATION ORDERABLES documented in this encounter Visit Diagnoses Diagnosis Orbital mass Other orbital disorder Mass of sinus Swelling, mass, or lump in head and neck documented in this encounter Care Teams Ceiling Installer Relationship Specialty Start Date End Date Unknown None PCP - General 03/27/17 01/23/24 documented as of this encounter
--- OUTSIDE RECORDS SUMMARY | 2024-03-31 16:52 | XMS_ITS | Encounter Summary ---
[place] [address] Care Team Providers Care General Manager Road Production Name Role Phone Seema Francis Primary Care [...] (WRVU 3.18) MODIFIER,STEALTH 2,KINEVO Suman Lopez MD [facility] DR [place] [address] [facility] Referral ID Status Reason Start Date Expiration Date Visits Re quested Visits Authorized [id number] 1 1 Encounter Details Date Type Department Care Team (Late st Contact Info) Description 03/11/2024 10:52 AM EDT - 03/11/2024 1:37 PM EDT Surgery [place] [phone] Suman Lopez MD [facility] [place] [address] NASAL, SINUS ENDOSCOPY, TOTAL ETHMOIDECTOMY (WRVU 5.75) Social History Tobacco Use Types Packs/Day Years [...] Sign Reading Time Taken Comments Blood Pressure 109/90 03/11/2024 10:36 AM EDT Pulse 75 03/11/2024 10:36 AM EDT Temperature 37.1 ??C (98.8 ??F) 03/11/2024 10:36 AM E DT Respiratory Rate 18 03/11/2024 10:36 AM EDT Oxygen Saturation 95% 03/11/2024 10:36 AM EDT Inhaled Oxygen Concentration - - Weight [...] sale packets such as those sold by [employer] can be purchased at most drug stores, [...] by mouth 2 times daily. 60 tablet 02/22/2021 sod.chlorid/potassium chloride (THERMOTABS ORAL) Take 1 tablet by mouth 2 times daily. b complex vitamins Capsule Take 1 capsule by mouth twice a week. cholecalciferol, Vitamin D3, 25 mcg (1,000 unit) Capsule Take 1 capsule by mouth twice a week. oxymetazoline (Afrin) 0.05 % nasal spray 2 sprays by Nasal route 2 times daily as needed (nosebeed). Larimer into each nostril. 30 mL 03/11/2024 03/31/2024 [...] PGY5 03/11/24 10:19 AM ENT Team Pager: [phone] Associated attestation - Suman Lopez MD - [...] neck/chest with contrast to be coordinate at [facility]. We will coordinate discussion of his pathology and imaging at our next appropriate multidisciplinary tumor board co nference. Suman Lopez M.D. [facility] Rhinology, Endoscopic Sinus & Skull Base Surgery Division of Otolaryngology - Head and Neck Surgery [facility] documented in this encounter Miscellaneous Notes * Op Note - Suman Lopez MD - 03/11/2024 11:39 AM EDT PATIENT NAME: Robi Mccall SERVICE: Otolaryngology SURGEON: Suman Lopez MD [employer] [employer] SURGEONS: Leonarda Larry MD ANESTHESIA: General endotracheal. [...] endoscopic maxillary antrostomy with tissue removal, CPT 20838-QY Left endoscopic total ethmoidectomy, CPT 27614-WB Direct laryngoscopy operative with biopsy, CPT 99556 Stereotactic image guidance, CPT 54644 ESTIMATED BLOOD LOSS: 30 mL RETAINED ITEMS: [...] made on the left side. With the Antelope elevator, the submucoperichondrial plane was identified and [...] was performedon the left side. Using the Fatemeh probe, the ethmoid infundibulum was gently dilated. The inferior aspect of the uncinate was removed using the back-biter. The maxillary sinus natural ostium was visualized and the Fatemeh probed used to dilated the natural ostium [...] EDT Scheduled View Only Radiation Oncology at [address] [phone] [facility] [place] 04/02/2024 2:00 PM EDT Office Visit Radiation Oncology at [address] [phone] Deangelo Leal MD [facility] [place] [address] 04/07/2024 11:00 AM EST Office Visit Hematology/Oncology at [address] [phone] Wilman Rendon MD [address] [facility] HEMATOLOGY [place] [address] Genet Taylor APRN [facility] [place] [address] 04/07/2024 12:30 PM EST Infusion Hematology Oncology at [address] [phone] 04/25/2024 11:00 AM EST Office [place] [phone] Nancy Garrison PA [facility] [place] [address] Pending Results Name Type Priority Associated Diagnoses [...] Endoscopy Max Antrost W/Rmvl Tiss Max Sinus (31913) Yes 03/11/2024 11:18 AM EDT Orbital mass Mass of sinus Chronic maxillary sinusitis Chronic ethmoidal sinusitis Lesion of soft palate MODIFIER,STEALTH 2,KINEVO Yes 2023 11:18 AM EDT Orbital mass Mass of sinus Chronic maxillary sinusitis Chronic ethmoidal sinusitis Lesion of soft palate Stereotactic Cptr Asstd Px Cranial, Extradural (73008) Yes 03/11/2024 11:18 AM EDT Orbital mass Mass of sinus Chronic maxillary sinusitis Chronic ethmoidal sinusitis Lesion of soft palate Laryngoscopy Direct Operative W/Biopsy (87338) Yes 03/11/2024 11:18 AM EDT Orbital mass Mass of sinus Chronic maxillary sinusitis Chronic ethmoidal sinusitis Lesion of soft palate Nasal Scopy, Remv Totl Ethmoid ([id number]) Yes 03/11/2024 11:18 AM EDT Orbital mass [...] 10:51 AM EDT Orbital mass SS-A/RO ANTIBODY () Routine 03/11/2024 10:51 AM EDT [...] REF LAB [facility] [address] [place] [address], [facility] * HPV DNA Genotyping (High Risk) (03/11/2024 1:10 PM EDT) Indication for Study Invasive poorly differentiated squamous cell carcinoma 03/26/2024 5:39 PM EDT [facility] Specimen Tissue Case/Block ID [id number] F3 03/26/2024 5:39 PM EDT [facility] HPV HR Genotype Result Negative for all high-risk HPV genotypes analyzed 03/26/2024 5:39 PM EDT [facility] HPV HR Genotype Interpretation Results indicate that the submitted tissue contained none of the 14 HPV high-risk genotypes detected by this assay. Not all high-risk HPV genotypes are included in this test. 03/26/2024 5:39 PM EDT [facility] HPV HR Genotype Methods Used Highly purified genomic DNA was extracted from a formalin fixed paraffin embedded tissue section after lysing of the cells. (Of note: in instances where the result was QNS, Genomic DNA was not analyzed or failed analysis.) HPV genotyping was performed using the [employer]er[employer] MeltPro High-Risk HPV Genotyping Test that assays [...] should be considered. 03/26/2024 5:39 PM EDT [facility] CGAT Disclaimer This test was developed and its performance characteristics determined by The [facility] (CGAT) at [facility], as required by the Clinical [...] accuracy and precision. 03/26/2024 5:39 PM EDT [facility] Tissue LEFT MAXILLARY SINUS STRUCTURE / Unknown 03/11/2024 1:10 PM EDT 03/18/2024 10:28 AM EDT Suman Lopez MD MOLECULAR ORDERABLES Performing Organization Address City/State/[facility] Co de Phone Number [facility] [place] [address] * Immunophenotyping Flow Cytometry (03/11/2024 1:10 PM EDT) Final Diagnosis - Too few events detected for meaningful immunophenotypic analysis(see Comment). 03/12/2024 2:01 PM EDT [facility] Signing Pathologist This result has been reviewed by Jose Alfredo Mireles DO on 03/12/24 at 2:01 PM. 03/12/2024 2:01 PM EDT [facility] Discussion Too few events were detected (<100 viable cells of interest, based on 3.9% viable cells) for meaningful analysis. Correlation with morphologic interpretation of the biopsy is recommended. 03/12/2024 2:01 PM EDT [facility] Lymphocyte % 29.7 % 03/12/2024 2:01 PM EDT [facility] CD3+ % 93.0 % 03/12/2024 2:01 PM EDT [facility] CD19+ % 0.0 % 03/12/2024 2:01 PM EDT [facility] CD56+ % 0.0 % 03/12/2024 2:01 PM EDT [facility] B-Cell:T-Cell Ratio 0.0 03/12/2024 2:01 PM EDT [facility] CD4:CD8 Ratio 0.0 03/12/2024 2:01 PM EDT [facility] Cell Viability % 3.9 % 03/12/2024 2:01 PM EDT [facility] Specimen Processing Cells for immunophenotypic analysis were derived from tissue. The following markers were assessed: CD2, CD3, CD4, CD5, CD7, CD8, CD10, CD19, CD45, CD56, kappa light chain, and lambda light chain. 03/12/2024 2:01 PM T [facility] Disclaimer Flow analysis is an ancillary study. A definite diagnosis requires correlation with the morphologic features of this process and if necessary, correlation with other ancillary studies like immunohistochemist ry, enzyme cytochemistry and/or cyto/molecular genetics. This test was developed and its performance characteristics determined by the Clinical Flow Cytometry Laboratory at [facility]. It has not been cleared or approved [...] clinical laboratory testing. 03/12/2024 2:01 PM EDT [facility] Clinical Information Orbital mass with sinonasal extension. 03/12/2024 2:01 PM EDT [facility] Tissue 03/11/2024 1:10 PM EDT 03/11/2024 1:25 PM EDT Suman Lopez MD HEMATOLOGY ORDERABLE S [facility] [place] [address] * (ABNORMAL) Surgical Pathology (03/11/2024 11:44 AM EDT) Case Report Surgical Pathology Report ? Case: [id number] ? Authorizing Provider: ??Jessica, Suman Phipps, ? Collected: ? 03/11/2024 1144 ? Ordering Location: ? Main Operating Room [place] ?? Received: ?03/11/2024 1320 ? [facility] ? Hospital ? Pathologist: ? Michelle Trejo, MD ? Specimens: ?? A) - Pharynx, Right medial hypopharyngeal mass ? B) - Pharynx, Right posterior pharyngeal wall ? C) - Soft Palate, Midline ? D) - Tonsil, Right ? E) - Sinus Contents, Left ? F) - Sinus, Maxillary, Left, Left maxillary sinus contents ? 03/18/2024 8:48 AM EDT [facility] Final Diagnosis A. Pharynx, right medial hypopharyngeal mass, biopsy: - Invasive squamous cell carcinoma, focally keratinizing, poorly differentiated. B. Pharynx, right posterior pharyngeal wall, biopsy: - Moderate keratinizing squamous dysplasia. C. Soft palate, midline, biopsy: - Severe squamous dysplasia. D. Tonsil, right, biopsy: - Invasive squamous cell carcinoma, [id number], keratinizing type. - Lymphovascular space invasion is present. E. Sinus contents, left, biopsy: - Invasive poorly differentiated squamous cell carcinoma. F. Sinus contexts, left maxillary, biopsy: - Invasive poorly differentiated squamous cell carcinoma. 03/18/2024 8:48 AM [facility] Discussion The tumor shows a range of morphologic features in the above specimens, ranging from moderately differentiated and keratinizing to morphologically poorly differentiated with clear cell features. Given the presence of p16 reactivity, genotyping for high-risk HPV is pending. 03/18/2024 8:48 AM [facility] Additional Studies Task ID IHC/Special Stains Result D1-2 p16 Positive E2-2 CK5 Positive E2-3 p40 Positive E2-4 NUT Negative 03/18/2024 8:48 AM [facility] Disclaimer(s) Formalin-fixed, paraffin-embedded tissue sections are [...] and other diagnostic tests. 03/18/2024 8:48 AM [facility] Clinical Information A. Pharynx, Right medial hypopharyngeal mass Mass B. Pharynx, Right posterior pharyngeal wall Mass C. Soft Palate, Midline, Mass D. Tonsil, Right, Mass E. Sinus Contents, Left, Mass F. Sinus, Maxillary, Left, Left maxillary sinus contents Mass Rule out malignancy Left maxillary sinus contents for lymphoma workup 03/18/2024 8:48 AM [facility] Gross Description A. Pharynx, Right medial [...] Entirely submitted in 5 cassettes labeled F1-F5. [facility] 03/18/2024 8:48 AM EDT [facility] Result Note THIS RESULT REQUIRES PHYSICIAN/KELLEE FOLLOW UP(A) 03/18/2024 8:48 AM EDT [facility] Tissue PHARYNGEAL STRUCTURE / Unknown 03/11/2024 [...] MD PATHOLOGY/CYTOLOGY O RDERABLES Performing Organization Address [facility] de Phone Number [facility] [place] [address] * U1RNP Antibody (03/11/2024 10:51 AM EDT) U1RNP Ab 0.80 <=10.00 unit/mL 03/13/2024 1:39 PM EDT [facility] Blood VENOUS BLOOD SPECIMEN / Unknown IP Care Team Draw / Unknown 03/11/2024 10:51 AM EDT 03/11/2024 10:56 AM EDT Narrative [facility] - 03/13/2024 1:39 PM EDT Reference Range: <5 - Negative ?? 5-10 - Equivocal ?? >10 - Positive ?? The U1RNP antibody result was generated using fluoroenzyme immunoassay on the [employer] 250 analyzer. The semi-quantitative test is designed to detect IgG antibodies in human serum that are reactive to the U1RNP protein. Suman Lopez MD IMMUNOLOGY ORDERABLE S Performing Organization Address [facility] Co de Phone Number [facility] [place] [address] * SM(Palma) Antibody (03/11/2024 10:51 AM EDT) Sm(Palma) Ab <0.70 <=10.00 unit/mL 03/13/2024 1:39 PM EDT [facility] Blood VENOUS BLOOD SPECIMEN / Unknown IP Care Team Draw / Unknown 03/11/2024 10:51 AM EDT 03/11/2024 10:56 AM EDT [facility] - 03/13/2024 1:39 PM EDT Reference Range: <7 - Negative 7-10 - Equivocal ?? >10 - Positive ?? The Sm antibody result was generated using fluoroenzyme immunoassay on the InviBoxdia 250 analyzer. The semi-quantitative test is designed to detect IgG antibodies in human serum that are reactive to the Sm protein. Suman Lopez MD IMMUNOLOGY ORDERABLE S Performing Organization Address [facility] Phone Number [facility] [place] [address] * Scl-70 Antibody (03/11/2024 10:51 AM EDT) Scl-70 Ab <0.60 <=10.00 unit/mL 03/13/2024 1:39 PM EDT [facility] Blood VENOUS BLOOD SPECIMEN / Unknown IP Care Team Draw / Unknown 03/11/2024 10:51 AM EDT 03/11/2024 10:56 AM EDT [facility] - 03/13/2024 1:39 PM EDT Reference Range: <7 - Negative 7-10 - Equivocal >10 - Positive The Scl-70 antibody result was generated using fluoroenzyme immunoassay on the InviBoxdia 250 analyzer. The semi-quantitative test is designed to detect IgG antibodies in human serum that are reactive to the Scl-70 protein. Suman Lopez MD IMMUNOLOGY ORDERABLE S Performing Organization Address [facility] Co de Phone Number [facility] [place] [address] * SS-B/La Antibody (03/11/2024 10:51 AM EDT) SS-B/La Ab <0.40 <=10.00 unit/mL 03/13/2024 1:39 PM EDT [facility] Blood VENOUS BLOOD SPECIMEN / Unknown IP Care Team Draw / Unknown 03/11/2024 10:51 AM EDT 03/11/2024 10:56 AM EDT [facility] - 03/13/2024 1:39 PM EDT Reference Range: <7 - Negative 7-10 - Equivocal >10 - Positive The SS-B antibody result was generated using fluoroenzyme immunoassay on the Ph[employer]ia 250 analyzer. The semi-quantitative test is designed to detect IgG antibodies in human serum that are reactive to the SS-B (La) protein. Suman Lopez MD IMMUNOLOGY ORDERABLE S [facility] [place] [address] * (ABNORMAL) SS-A/Ro Antibody (03/11/2024 10:51 AM EDT) SS-A/Ro Ab 37.00(H) <=10.00 unit/mL 03/13/2024 1:39 PM EDT [facility] Blood VENOUS BLOOD SPECIMEN / Unknown IP Care Team Draw / Unknown 03/11/2024 10:51 AM EDT 03/11/2024 10:56 AM EDT [facility] - 03/13/2024 1:39 PM EDT Reference Range: <7 - Negative 7-10 - Equivocal >10 - Positive The SS-A antibody result was generated using fluoroenzyme immunoassay on the Phadia 250 analyzer. The semi-quantitative test is designed to detect IgG antibodies in human serum that are reactive to the SS-A (Ro) protein. Suman Lopez MD IMMUNOLOGY ORDERABLE S [facility] [place] [address] * Joan 1 Antibody (03/11/2024 10:51 AM EDT) Joan-1 Ab <0.30 <=10.00 unit/mL 03/13/2024 1:39 PM EDT [facility] Blood VENOUS BLOOD SPECIMEN / Unknown IP Care Team Draw / Unknown 03/11/2024 10:51 AM EDT 03/11/2024 10:56 AM EDT Narrative [facility] - 03/13/2024 1:39 PM EDT Reference [...] SEND OUT ORDERAB LES Performing Organization Address [facility] de Phone Number [facility] [place] [address] * Centromere Antibody (03/11/2024 10:51 AM EDT) Centromere Ab <0.40 <=10.00 unit/mL 03/13/2024 1:39 PM EDT [facility] Blood VENOUS BLOOD SPECIMEN / Unknown IP Care Team Draw / Unknown 03/11/2024 10:51 AM EDT 03/11/2024 10:56 AM EDT Narrative [facility] - 03/13/2024 1:39 PM EDT Reference Range: <7 - Negative ?? 7-10 - Equivocal ?? >10 - Positive ?? The CENP antibody result was generated using fluoroenzyme immunoassay on the Phadia 250 analyzer. The semi-quantitative test is designed to detect IgG antibodies in human serum that are reactive to the Centromere B protein. Suman Lopez MD IMMUNOLOGY ORDERABLE S Performing Organization Address [facility] de [facility] Number [facility] [place] [address] * (ABNORMAL) IgG Subclasses (03/11/2024 10:51 AM EDT) IgG 983 700 - 1,600 mg/dL 03/13/2024 9:39 AM EDT [facility] IgG 1 523.8 382.4 - 928.6 mg/dL 03/13/2024 9:39 AM EDT [facility] IgG 2 196.9(L) 241.8 - 700.3 mg/dL 03/13/2024 9:39 AM EDT [facility] IgG 3 18.3(L) 21.8 - 176.1 mg/dL 03/13/2024 9:39 AM EDT [facility] IgG 4 57.1 3.9 - 86.4 mg/dL 03/13/2024 9:39 AM EDT [facility] Blood VENOUS BLOOD SPECIMEN / Unknown IP Care Team Draw / Unknown 03/11/2024 10:51 AM EDT 03/11/2024 10:56 AM EDT Suman Lopez MD IMMUNOLOGY ORDERABLE S [facility] [place] [address] * (ABNORMAL) CRP, acute inflammation (03/11/2024 10:51 AM EDT) C-Reactive Protein 17.1(H) <=4.9 mg/L 03/11/2024 11:46 AM EDT [facility] Blood VENOUS BLOOD SPECIMEN / Unknown IP Care Team Draw / Unknown 03/11/2024 10:51 AM EDT 03/11/2024 10:56 AM EDT Suman Lopez [place] [address] * Sedimentation rate (03/11/2024 10:51 AM EDT) Sedimentation Rate Automated 17 2 - 37 mm/hr 03/11/2024 1:48 PM EDT [facility] Blood VENOUS BLOOD SPECIMEN / Unknown IP Care Team Draw / Unknown 03/11/2024 10:51 AM EDT 03/11/2024 10:55 AM EDT Suman Lopez MD HEMATOLOGY ORDERABLE S Performing Organization Address City/[facility]/ZIP Co de Phone Number [facility] [place] [address] * Cytoplasmic Neutrophilic Ab (03/11/2024 10:51 AM EDT) [facility] C-Anca May Negative Negative 03/13/2024 2:33 PM EDT [facility] [place] P-Anca May Negative Negative 03/13/2024 2:33 PM EDT [facility] [place] Comment: Negative for cANCA and pANCA patterns by immunofluorescence. ADDITIONAL INFORMATION This test was developed and its performance characteristics determined by [facility] in a manner consistent with CLIA requirements. This test has not been cleared or approved by the U.S. Food and Drug Administration. Blood VENOUS BLOOD SPECIMEN / Unknown IP Care Team Draw / Unknown 03/11/2024 10:51 AM EDT 03/11/2024 11:04 AM EDT Narrative [facility] [place] - 03/13/2024 2:33 PM EDT Test Performed by: [place] [address] Asphalt Spreader: Bibi Kang Ph.D.; CLIA# [id number] Suman Lopez MD LAB SEND OUT ORDERAB LES Performing Organization Address City/[facility]/ZIP Co de Phone Number REF LAB [address] * Myeloperoxidase Ab (03/11/2024 10:51 AM EDT) [facility] Myeloperoxidase Antibody <0.2 <3.5 U/mL 03/12/2024 12:13 PM EDT [facility] Blood VENOUS BLOOD SPECIMEN / Unknown IP Care Team Draw / Unknown 03/11/2024 10:51 AM EDT 03/11/2024 10:56 AM EDT Narrative [facility] - 03/12/2024 12:13 PM EDT Reference Range: <3.5 - Negative 3.5-5.0 - Equivocal >5.0 - Positive Suman Lopez MD IMMUNOLOGY ORDERABLE S [facility] [place] [address] * Proteinase-3 Antibody (03/11/2024 10:51 AM EDT) Proteinase 3 Antibody <0.6 <2.0 U/mL 03/12/2024 12:13 PM EDT [facility] Blood VENOUS BLOOD SPECIMEN / Unknown IP Care Team Draw / Unknown 03/11/2024 10:51 AM EDT 03/11/2024 10:56 AM EDT Narrative [facility] - 03/12/2024 12:13 PM EDT Reference Range: <2.0 - Negative 2.0-3.0 - Equivocal >3.0 - Positive Suman Lopez MD IMMUNOLOGY ORDERABLE S Performing Organization Address City/[facility]/ZIP Co de Phone Number [facility] [place] [address] * Rheumatoid factor, quant (03/11/2024 10:51 AM EDT) Rheumatoid Factor 11 <=14 IU/mL 03/11/2024 3:25 PM EDT [facility] Blood VENOUS BLOOD SPECIMEN / Unknown IP Care Team Draw / Unknown 03/11/2024 10:51 AM EDT 03/11/2024 10:56 AM EDT Suman Lopez MD CHEMISTRY ORDERABLES [facility] [place] [address] * (ABNORMAL) Antinuclear Antibody Screen (APARNA) (03/11/2024 10:51 AM EDT) APARNA Ab Screen Positive( A) Negative 03/12/2024 12:13 PM EDT [facility] dsDNA Ab <0.6 <=15.0 IU/mL 03/12/2024 12:13 PM EDT [facility] Blood VENOUS BLOOD SPECIMEN / Unknown IP Care Team Draw / Unknown 03/11/2024 10:51 AM EDT 03/11/2024 10:56 AM EDT [facility] - 03/12/2024 12:13 PM EDT dsDNA Ab Reference Range: <10 - Negative 10-15 - Equivocal >15 - Positive This antinuclear antibody (APARNA) screen is a qualitative test performed using a fluoroenzyme immunoassay on the InviBoxdia 250 analyzer. This screen is designed to [...] erythematosus. Suman Lopez MD IMMUNOLOGY ORDERABLE S [facility] [place] [address] documented in this encounter Visit Diagnoses Diagnosis Orbital mass Other orbital disorder Mass of sinus Swelling, mass, or lump in head and neck Chronic maxillary sinusitis Chronic ethmoidal sinusitis Lesion of soft palate Orbital mass Other orbital disorder Mass of [...] 2:47 PM EDT 1,000 mg 400 mL/hr EPINEPHrine (Adrenalin) nasal solution PRN, Starting on Sun03/11/24 at 1210, Until Sun03/11/24 at 1940, Intra-Operative (Intra-Procedure), Routine Given 03/11/2024 12:10 PM EDT 30 mLs 19- Surgical Site fentaNYL (PF) (50 mcg/mL) injection 25 mcg 25 mcg, Intravenous, EVERY 15 MIN PRN, 8 doses, Starting on Sun03/11/24 at 1508, Until Sun03/11/24 at 1940, Pain, PACU Recovery, Routine fluorescein (BioGlo) ophthalmic strip PRN, Starting on Sun03/11/24 at 1210, Until Sun03/11/24 at 1940, Intra-Operative (Intra-Procedure), Routine Given 03/11/2024 12:10 PM EDT 1 strip 19- Surgical Site ondansetron (pf) (Zofran) (2 mg/mL) injection 4 [...] Routine documented in this encounter Care Teams General Manager Road Production Relationship Specialty Start Date End Date Seema Francis PA [address] [place] [phone] PCP - General Family Medicine 01/24/24 documented as of this encounter
--- OUTSIDE RECORDS SUMMARY | 2024-03-31 16:52 | XMS_ITS | Encounter Summary ---
[place] [address] Care Team Providers Care Mat Machine Operator Name Role Phone Seema Francis Primary Care Provide r Reason for Referral * Diagnostic Test (Routine) - Closed Specialty Diagnoses / Procedures Referred By Contac t Referred To Contact Radiology Diagnoses Carcinoma of hypopharynx Procedures NM Agudelo PET CT Standard Plus Head and Neck NM PET CT Standard Plus Head and Neck Suman Lopez MD [facility] [place] [address] [facility] [place] [address] Referral ID Status Reason Start Date Expiration Date V isits Requested Visits Authorized [id number] Closed Specialty Service Requested 03/11/2024 09/09/2025 1 1 * Diagnostic Test (Routine) - Closed Specialty Diagnoses / Procedures Referred By Contac t Referred To Contact Radiology Diagnoses Carcinoma of hypopharynx Procedures CT Chest w Contrast Suman Lopez MD [facility] [place] [address] [facility] [place] [address] Referral ID Status Reason Start Date Expiration Date V isits Requested Visits Authorized [id number] Closed Specialty Service Requested 03/11/2024 09/09/2025 1 1 * Diagnostic Test (Routine) - Closed Specialty Diagnoses / Procedures Referred By Otto t Referred To Contact Radiology Diagnoses Carcinoma of hypopharynx Procedures CT Neck Soft Tissue w Contrast (Generic) Suman Lopez MD [facility] [place] [address] [facility] [place] [address] Referral ID Status Reason Start Date Expiration Date V isits Requested Visits Authorized [id number] Closed Specialty Service Requested 03/11/2024 09/09/2025 1 1 Encounter Details Date Type Department Care Team ([facility] Contact Info) Description 03/11/2024 Orders [place] [phone] Suman Lopez MD [facility] [place] [address] Carcinoma of hypopharynx Social History Tobacco Use Types Packs/Day Years [...] Upcoming Encounters Date Type Department Care Team ([facility] Contact Info) Description 04/02/2024 1:30 PM EDT Scheduled View Only Radiation Oncology at [address] [phone] [facility] 04/02/2024 2:00 PM EDT Office Visit Radiation Oncology at [address] [phone] Deangelo Leal MD [facility] [place] [address] 04/07/2024 11:00 AM EST Office Visit Hematology/Oncology at [address] [phone] Wilman Rendon MD [address] [facility] HEMATOLOGY & [place] [address] Genet Taylor APRN [facility] [place] [address] 04/07/2024 12:30 PM EST Infusion Hematology Oncology at [address] [phone] 04/25/2024 11:00 AM EST Office [place] [address] Nancy Garrison PA [facility] [place] [address] Pending Results Name Type Priority Associated Diagnoses Date /Time NM Agudelo PET CT Standard Plus Head and Neck Imaging Routine Carcinoma of hypopharynx 03/28/2024 2:56 PM EDT Scheduled Orders Name Type Priority Associated Diagnoses Orde r Schedule NM Agudelo PET CT Standard Plus Head and Neck Imaging Routine Carcinoma of hypopharynx Expected: 03/19/2024, Expires: 09/18/2024 documented as of this encounter Results * CT Chest w Contrast (03/19/2024 11:47 AM EDT) WORKSTATION ID [id number] RAD Anatomical Region Laterality Modality Chest Computed [...] who have questions please contact the health transition of care specialist that requested your imaging first. ? 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 Suman Lopez MD IMG CT ORDERABLES * CT Neck Soft Tissue w Contrast (Generic) (03/19/2024 11:47 AM EDT) WORKSTATION ID [id number] RAD Anatomical Region Laterality Modality Neck, Head [...] who have questions please contact the health transition of care specialist that requested your imaging first. ? Electronically signed by: BRAULIO Doll [facility] ([phone]), at 03/19/2024 8:22 PM Narrative 03/19/2024 8:22 PM EDT EXAMINATION: CT [...] Extensive bilateral lymphadenopathy is identified at the nauqs2G, levels 2A/B the and level 3. Some [...] patients who have questions please contactthe health transition of care specialist that requested your imaging first. 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
--- OUTSIDE RECORDS SUMMARY | 2024-03-31 16:52 | XMS_ITS | Encounter Summary ---
Author Organization [facility] [place] [address] Care Team Providers Care Stunt Woman Name Role Phone Unknown Primary Care Provider Unavailabl e Encounter Details Date Type Department Care Team (Late st Contact Info) Description 12/23/2020 Telephone [place] [phone] Flaco Gomez MD [facility] [place] [address] Social History Tobacco Use Types Packs/Day Years Used Date Smoking Tobacco: Never Assessed Sex and Gender Information Value Date Recorded Sex Assigned at Not on file Gender Identity Not on file Sexual Orientation Straight 02/21/2021 6: 09 PM EDT documented as of this encounter Miscellaneous Notes * Telephone Encounter - Susan Pino RN - 12/23/2020 9:[address] Gomez: Would you please see if you can order him an MRI scan to be done in [facility]. Also would you see if you can get blood test CBC chemistry and liver profile, TSH and T4, B12 level, Tegretol level and Lamictal level to be done in [place] in 6 weeks at which time he should be up to speed on his Lamictal. Spoke to patient. Made aware that lab orders and MRI order has been forwarded to [facility]. Made aware that MRI might be needing PA approval before he can schedule. Advised to call back for any questions. documented in this encounter Plan of Treatment Upcoming Encounters Date Type Department Care Team (Late st Contact Info) Description 04/02/2024 1:30 PM EDT Scheduled View Only Radiation Oncology at [address] [phone] [facility] 04/02/2024 2:00 PM EDT Office Visit Radiation Oncology at [address] [phone] Deangelo Leal MD [facility] [place] [address] 04/07/2024 11:00 AM EST Office Visit Hematology/Oncology at [address] [phone] Wilman Rendon MD [address] [facility] DR HEMATOLOGY & [place] [address] Genet Taylor APRN [facility] [place] [address] 04/07/2024 12:30 PM EST Infusion Hematology Oncology at [address] [phone] 04/25/2024 11:00 AM EST Office Visit [place] [phone] Nancy Garrison PA [facility] [place] [address] documented as of this encounter Visit Diagnoses Diagnosis Partial symptomatic epilepsy with complex partial seizures, intractable, with status epilepticus documented in this encounter Care Teams Stunt Woman Relationship Specialty Start Date End Date Unknown None PCP - General 03/27/17 01/23/24 documented as of this encounter
--- OUTSIDE RECORDS SUMMARY | 2024-03-31 16:52 | XMS_ITS | Encounter Summary ---
[place] [address] Care Team Providers Care Gospel Worker Name Role Phone Unknown Primary Care Provider Unavailabl e Reason for Visit * Reason Comments Diplopia * Consultation (Urgent) - Closed Specialty Diagnoses / Procedures Referred By Otto perry Referred To Contact Ophthalmology Diagnoses Mass of sinus Leonarda Larry MD [facility] [address] [facility] Ophthalmology [address] [place] [phone] Referral ID Status Reason Start Date Expiration Date V isits Requested Visits Authorized [id number] Closed Consult, Test & Treat 01/12/2024 01/11/2025 1 1 Encounter Details Date Type Department Care Team (Late st Contact Info) Description 01/16/2024 12:30 PM EDT Office [place] [phone] Arnoldo Dillard MD [facility] [place] [address] Orbital mass; Diplopia; Maxillary sinus mass Social History Tobacco Use Types Packs/Day [...] as of this encounter Progress Notes * Anant Thornton MD - 01/16/2024 12:30 PM EDT Ophthalmology Exam Assessment Robi Mccall is a 58 y.o. male presenting for evaluation of diplopia for the past year, and new found left orbital mass found on MRI 01/11/24. He reports he first noted double vision over a year ago, and was prescribed prism glasses. A few weeks ago noted significant worsening in diplopia and returned to his chief program officer, who sent him for imaging. Imaging: MR Head second read 01/14/24 IMPRESSION Large infiltrative mass of the left nasal cavity and orbit as described above. There is possible extension to the dura of the anterior cranial fossa. The appearance is most consistent with neoplasm, possibly lymphoma. The bulk of the abnormality makes an invasive fungal processless likely. #Left orbital mass Overall size of neoplasm is 4.5 x 4.5 x 3.6cm. - Left hypertropia and exotropia at near > distance. Gaze restriction on down gaze, though difficult to measure as mass displacing globe superiorly - VA 20/25 OU, IOP normal. - Imaging, exam and history more concerning for malignancy than infection. He will see ENT after this appointment for discussion of nasal endoscopic biopsy for definitive diagnosis. Discussed with patient that if this is indeed a lymphoma, it can likely be treated with chemotherapy and possibly radiation, though we will discuss this in further detail pending biopsy results. Plan: - Agree with endoscopic biopsy with ENT - Oculoplastics available for further involvement as needed depending on biopsy results Return to Clinic: Pending biopsy results. -- Anant Thornton MD PGY-2 Ophthalmology Pager #[phone] I saw the patient with the following level of supervision: Direct from the attending, Dr. Dillard I have seen the patient in person and reviewed the resident's above history and I agree with the details as written. The assessment and plan were formulated in discussion with me and I agree with them as documented. Arnoldo Dillard MD documented in this encounter Miscellaneous Notes * Addendum Note - Arnoldo Dillard MD - 01/16/2024 12:30 PM EDTAddended by: ARNOLDO DILLARD on: 01/16/2024 07:48 PM Modules accepted: Level of Service documented in this encounter Plan of Treatment Upcoming Encounters Date Type Department Care Team (Late st Contact Info) Description 04/02/2024 1:30 PM EDT Scheduled View Only Radiation Oncology at [address] [phone] Rad Nurse, [facility] 04/02/2024 2:00 PM EDT Office Visit Radiation Oncology at [address] [phone] Deangelo Leal MD [facility] [place] [address] 04/07/2024 11:00 AM EST Office Visit Hematology/Oncology at [address] [phone] Wilman Rendon MD [address] [facility] DR HEMATOLOGY & [place] [address] Genet Taylor APRN [facility] [place] [address] 04/07/2024 12:30 PM EST Infusion Hematology Oncology at [address] [phone] 04/25/2024 11:00 AM EST Office [place] [phone] Nancy Garrison PA [facility] [place] [address] documented as of this encounter Visit Diagnoses Diagnosis Orbital mass Other orbital disorder Diplopia Maxillary sinus mass Swelling, mass, or lump in head and neck documented in this encounter Care Teams Gospel Worker Relationship Specialty Start Date End Date Unknown None PCP - General 03/27/17 01/23/24 documented as of this encounter
--- OUTSIDE RECORDS SUMMARY | 2024-03-31 16:52 | XMS_ITS | Encounter Summary ---
[place] [address] Care Team Providers Care Risk Control Director Name Role Phone Seema Francis Primary Care Provide r Reason for Referral * Diagnostic Test (Routine) - Closed Specialty Diagnoses / Procedures Referred By Contac t Referred To Contact Radiology Diagnoses Carcinoma of hypopharynx Procedures CT Chest w Contrast Suman Lopez MD [facility] [place] [address] [facility] [place] [address] Referral ID Status Reason Start Date Expiration Date V isits Requested Visits Authorized [id number] Closed Specialty Service Requested 03/11/2024 09/09/2025 1 1 * Diagnostic Test (Routine) - Closed Specialty Diagnoses / Procedures Referred By Contac t Referred To Contact Radiology Diagnoses Carcinoma of hypopharynx Procedures CT Neck Soft Tissue w Contrast (Generic) Suman Lopez MD [facility] [place] [address] [facility] [place] [address] Referral ID Status Reason Start Date Expiration Date V isits Requested Visits Authorized [id number] Closed Specialty Service Requested 03/11/2024 09/09/2025 1 1 Reason for Visit * Diagnostic Test (Routine) - Closed Specialty Diagnoses / Procedures Referred By Otto perry Referred To Contact Radiology Diagnoses Carcinoma of hypopharynx Procedures CT Chest w Contrast Suman Lopez MD [facility] [place] [address] [facility] [place] [address] Referral ID Status Reason Start Date Expiration Date V isits Requested Visits Authorized [id number] Closed Specialty Service Requested 03/11/2024 09/09/2025 1 1 Encounter Details Date Type Department Care Team (Latest Contact Info) Description 03/19/2024 10:45 AM EDT - 03/19/2024 11:59 PM EDT Hospital [place] [phone] Suman Lopez MD [facility] [place] [address] Carcinoma of hypopharynx Discharge Disposition: Home Social History Tobacco Use Types Packs/Day Years Used Date Smoking Tobacco: Every Day Cigarettes 0.5 27 Smokeless Tobacco: Never Alcohol Use Standard Drinks/Week Comments Yes 42 (1 standard drink = 0.6 oz pu re alcohol) 6 beers/day [facility] Inpatient Questions Answer Date Recorded Prevent Contact [...] route 2 times daily as needed (nosebeed). [place] into each nostril. 30 mL 03/11/2024 03/31/2024 documented as of this encounter Plan of Treatment Upcoming Encounters Date Type Department Care Team (Late st Contact Info) Description 04/02/2024 1:30 PM EDT Scheduled View Only Radiation Oncology at [address] [phone] [facility] 04/02/2024 2:00 PM EDT Office Visit Radiation Oncology at [address] [phone] Deangelo Leal MD [facility] [place] [address] 04/07/2024 11:00 AM EST Office Visit Hematology/Oncology at [address] [phone] Wilman Rendon MD [address] [facility] HEMATOLOGY & [place] [address] Genet Taylor APRN [facility] [place] [address] 04/07/2024 12:30 PM EST Infusion Hematology Oncology at [address] [phone] 04/25/2024 11:00 AM EST Office Visit [place] [phone] Nancy Garrison PA [facility] [place] [address] documented as of this encounter Procedures Procedure Name Priority Date/Time Associated Diagnosis Comments CT CHEST W CONTRAST Routine 03/19/2024 1 1:47 AM EDT Carcinoma of hypopharynx CT NECK SOFT TISSUE W CONTRAST Routine 03/19/2024 11:47 AM EDT Carcinoma of hypopharynx documented in this encounter Results * CT Chest w Contrast (03/19/2024 11:47 AM EDT) WORKSTATION ID [id number] [facility] Anatomical Region Laterality Modality Chest Computed Tomogra [...] who have questions please contact the health customer care consultant that requested your imaging first. ? Narrative [...] CONTRAST CLINICAL HISTORY: suspected hypopharyngeal SCC with [id number], Malignant neoplasm of hypopharynx, unspecified TECHNIQUE: Helical [...] patients who have questions please contactthe health customer care consultant that requested your imaging first. Suman Lopez MD IMG CT ORDERABLES * CT Neck Soft Tissue w Contrast (Generic) (03/19/2024 11:47 AM EDT) WORKSTATION ID [id number] RAD Anatomical Region Laterality Modality Neck, Head [...] who have questions please contact the health customer care consultant that requested your imaging first. ? Narrative [...] Extensive bilateral lymphadenopathy is identified at the regah3O, levels 2A/B the and level 3. Some [...] patients who have questions please contactthe health customer care consultant that requested your imaging first. 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, unspecified site documented in this encounter Administered Medications Inactive Administered Medications - up to 3 most recent administrations Medication Order MAR Action Action Date Dose Rate Site iohexoL (Omnipaque) (350 mg/mL) solution 0-200 mL 0-200 mL, Intravenous, ONCE PRN, 1 dose, Starting on Sun03/19/24 at 1147, Until Sun03/19/24 at 1148, Per Protocol, Warning Vesicant/Irritant Medication , Radiology Contrast, Routine Given 03/19/2024 11:48 AM EDT 110 mLs documented in this encounter Care Teams Risk Control Director Relationship Specialty Start Date End Date Seema Francis PA [address] [place] [phone] PCP - General Family Medicine 01/24/24 documented as of this encounter
--- OUTSIDE RECORDS SUMMARY | 2024-03-31 16:53 | XMS_ITS | Encounter Summary ---
Author Organization [facility] [place] [address] Care Team Providers Care Quality Control Head Name Role Phone Valdemar Rios MD Primary Care Provider Encounter Details Date Type Department Care Team (Latest Contact Info) Description 04/28/2013 8:43 PM EST - 04/28/2013 11:59 PM EST Hospital [place] [phone] Valdemar Rios MD [address] [place] [address] Discharge Disposition: Home Social History Tobacco Use [...] Scheduled View Only Radiation Oncology at [address] [phone] [facility] 04/02/2024 2:00 PM EDT Office Visit Radiation Oncology at [address] [phone] Deangelo Leal MD [facility] [place] [address] 04/07/2024 11:00 AM EST Office Visit Hematology/Oncology at [facility] [address] [place] [phone] Wilman Rendon MD [address] [facility] HEMATOLOGY & [place] [address] Genet Taylor APRN [facility] [place] [place] [address] 04/07/2024 12:30 PM EST Infusion Hematology Oncology at [address] [phone] 04/25/2024 11:00 AM EST Office [place] [phone] Nancy Garrison PA [facility] [place] [address] documented as of this encounter Procedures Procedure Name Priority Date/Time Associated Diagnosis Comments SURGICAL PATHOLOGY REPORT Routine 04/28/2013 12:37 PM EST documented in this encounter Results * Surgical Pathology Report (04/28/2013 12:37 PM EST) Surgical Pathology Report ? [facility] ? Provider: ?? VALDEMAR RIOS ?? Pt. Name: ?? GENEVIEVE ACEVEDO ? Acc #: ?[id number] ? Pt. ? Col Date: ?? 04/28/2013 ?/Sex: ?1965,(47 years),Male ? Rec Date: ?? 04/28/2013 ?LOC: ?[facility] ? SURGICAL PATHOLOGY ? ---Pathologic Diagnosis--- ? 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 ? CR-0 ? 04/29/13 ? [facility] ? 04/29/13 Verified by: ? Divya Gary MD ? Dermatopathologist ? (Electronic Signature) ? The attending pathologist whose signature appears on this report has ? reviewed all diagnostic slides and has edited the gross and/or ? microscopic portion of the report in rendering the final pathologic ? diagnosis. ? ---Gross Description--- ? A - Labeled/Fixative: Protestant, formalin. ? Quantity/Size: Two, 0.1 and 0.3 cm. ? Tissue Description: Irregular, friable marie and brown soft tissue ? fragments. ? Sections/Processing: Submitted en-toto. (T1) ??shb ? ---Clinical Information--- ? Specimen Submitted: ? A - Protestant, mole ? seborrheic keratosis ? Clinical History: ? Mole? ??Seborrheic keratosis ? Clinical Diagnosis: ? Same ? Referring Identifier: ??[id number] JESUS DUONGENNIUM 04/28/2013 12:3 7 PM EST Valdemar Rios MD PATHOLOGY/CYTOLOGY O RDERABLES JESUS RAMIRESIUM documented in this encounter Visit Diagnoses Not on filedocumented in this encounter Care Teams Quality Control Head Relationship Specialty Start Date End Date Valdemar Rios MD [address] [place] [address] PCP - General 04/28/13 03/26/17 documented as of this encounter
--- OUTSIDE RECORDS SUMMARY | 2024-03-31 16:53 | XMS_ITS | Encounter Summary ---
Author Organization [facility] [place] [address] Care Team Providers Care Director Of Strategic Alliances Name Role Phone Unknown Primary Care Provider Unavailabl e Reason for Visit * Reason Onset Date Comments TeleHealth 12/16/2020 Encounter Details Date Type Department Care Team (Late st Contact Info) Description 12/16/2020 Telephone [place] [address] Flaco Gomez MD [facility] [place] [address] TeleHealth Social History Tobacco Use Types Packs/Day Years Used Date Smoking Tobacco: Never Assessed Sex and Gender Information Value Date Recorded Sex Assigned at Not on file Gender Identity Not on file Sexual Orientation Straight 02/21/2021 6: 09 PM EDT documented as of this encounter Miscellaneous Notes * Telephone Encounter - Juany Perez RN - 12/16/2020 8:40 AM EDT Spoke to this patient's by phone to review his medications and allergies prior to his upcomingtele-appointment with the Neurology provider. ??Medications and allergies reviewed and established as a new Neurology patient. ?? documented in this encounter Plan of Treatment Upcoming Encounters Date Type Department Care Team (Late st Contact Info) Description 04/02/2024 1:30 PM EDT Scheduled View Only Radiation Oncology at [address] [phone] Rad Nurse, [place] 04/02/2024 2:00 PM EDT Office Visit Radiation Oncology at [address] [phone] Deangelo Leal MD [facility] [place] [address] 04/07/2024 11:00 AM EST Office Visit Hematology/Oncology at [address] [phone] Wilman Rendon MD [address] [facility] HEMATOLOGY & [place] [address] Genet Taylor APRN [facility] [place] [address] 04/07/2024 12:30 PM EST Infusion Hematology Oncology at [address] [phone] 04/25/2024 11:00 AM EST Office Visit [place] [phone] Nancy Garrison PA [facility] [place] [address] documented as of this encounter Visit Diagnoses Not on filedocumented in this encounter Care Teams Director Of Strategic Alliances Relationship Specialty Start Date End Date Unknown None PCP - General 03/27/17 01/23/24 documented as of this encounter
--- OUTSIDE RECORDS SUMMARY | 2024-03-31 16:53 | XMS_ITS | Encounter Summary ---
Author Organization [facility] [place] [place] [address] Care Team Providers Care Tire Bagger Name Role Phone Unavailable Primary Care Provider Unavailabl e Encounter Details Date Type Department Care Team (Late st Contact Info) Description 06/29/2007 Ancillary Procedure Radiology Library at [facility] [place] [address] Flaco Gomez MD [facility] [place] [address] Social History Tobacco Use Types Packs/Day Years [...] EDT Scheduled View Only Radiation Oncology at [address] [phone] [place] [facility] 04/02/2024 2:00 PM EDT Office Visit Radiation Oncology at [address] [phone] Deangelo Leal MD [facility] [place] [address] 04/07/2024 11:00 AM EST Office Visit Hematology/Oncology at [address] [phone] Wilman Rendon MD [address] [facility] HEMATOLOGY & [place] [address] Genet Taylor APRN [facility] [place] [address] 04/07/2024 12:30 PM EST Infusion Hematology Oncology at [address] [phone] 04/25/2024 11:00 AM EST Office Visit [place] [address] Nancy Garrison PA [facility] [place] [address] documented as of this encounter Procedures Procedure Name Priority Date/Time Associated Diagnosis Comments FILM LIBRARY STORAGE ONLY MR HEAD Routine 06/29/2007 12:00 AM EST documented in this encounter Results * Film Library- Storage Only MR Head (06/29/2007 12:00 AM EST) Narrative [facility] - 12/23/2020 10:55 PM EDT This exam is auto-finalizing. It's purpose is for storage only. Flaco Gomez MD IMG FILM LIBRARY ORD ERABLES [place], [place] documented in this encounter Visit Diagnoses Not on filedocumented in this encounter
--- OUTSIDE RECORDS SUMMARY | 2024-03-31 16:53 | XMS_ITS | Encounter Summary ---
Author Organization [facility] [place] [address] Care Team Providers Care Shiatsu Therapist Name Role Phone Tory Rios MD Primary Care Provider + [phone] Encounter Details Date Type Department Care Team (Latest Contact Info) Description 08/06/2013 8:53 PM EST - 08/06/2013 11:59 PM EST Hospital [place] [address] Flakito Santos, DO [address] [place] [address] Discharge Disposition: Home Social History Tobacco Use [...] EDT Scheduled View Only Radiation Oncology at [address] [phone] St [place] 04/02/2024 2:00 PM EDT Office Visit Radiation Oncology at [address] [phone] Deangelo Leal MD [facility] [place] [address] 04/07/2024 11:00 AM EST Office Visit Hematology/Oncology at [address] [phone] Wilman Rendon MD [address] [facility] HEMATOLOGY & [place] [address] Genet Taylor APRN [facility] [place] [address] 04/07/2024 12:30 PM EST Infusion Hematology Oncology at [address] [phone] 04/25/2024 11:00 AM EST Office [place] [phone] Nancy Garrison PA [facility] [place] [address] documented as of this encounter Procedures Procedure Name Priority Date/Time Associated Diagnosis Comments PATHOLOGY ADDENDUM REPORT Routine 08/06/2013 1:35 PM EST SURGICAL PATHOLOGY REPORT Routine 08/06/2013 1:35 PM EST documented in this encounter Results * Surgical Pathology Report (08/06/2013 1:35 PM EST) Final Diagnosis [id number] ? Location: The signing pathologist has (i) examined the relevant preparation(s) for the specimen(s) and (ii) rendered or confirmed the diagnosis(es). . 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 ??Please refer to separate electronic frozen section report(s). Gross Description A. Labeled/Fixative ?Left Emmet, fresh Qty/Size/Weight ? Single ellipse excision of skin 2.1 x 1.1 x 0.6 cm. A stitch giang the 12 o 'clock tip margin. ??Central slightly raised pigmented lesion, 0.6 x 0.5 cm. ??The 12 o'clock tip is inked orange and 6 o'clock tip red. The peripheral and deep margins from 1-3 o'clock are inked yellow, 3-5 o'clock green, 7-9 o'clock blue, and 9-11 o'clock black. Sections/Processi ng ?The peripheral margins are sectioned en-face. ??The 12-3-6 o 'clock en-face peripheral margin is submitted in cassette ?AFS1 for frozen section. The 6-9-12 o 'clock en-face peripheral margin is submitted in cassette ?AFS2 for frozen section. ?? The remaining ellipse is sectioned from 12 to 6 o ?'clock. ??The 12 o 'clock third is submitted for permanent section in cassette A3, the middle third in cassette ?A4 and the 6 o 'clock third in cassette A5. (T5) ??cib Diagnosis Skin, left quaker, excision: ?? Pigmented basal cell carcinoma, the margins are not involved CR-0 08/07/13 BJM 08/11/13 Verified by: ? Anil Madden MD, I ?Pathologist ?(Electronic Signature) The attending pathologist whose signature appears on this report has reviewed all diagnostic slides and has edited the gross and/or microscopic portion of the report in rendering the final pathologic diagnosis. ?Pathology Addendum Report Addendum Discussion Report of Intraoperative Consultation (Frozen Section) . Addendum Discussion Frozen section diagnosis AFS: Skin of left quaker ?? - No evidence of Basal cell carcinoma at the peripheral en- face margins - CIB This intraoperative consultation should be interpreted as a preliminary diagnosis pending review of the entire specimen and special studies, if any. 08/06/13 PPS 08/11/13 Verified by: ? Anil Madden MD, I ?Pathologist ?(Electronic Signature) The attending pathologist whose signature appears on this report has reviewed all diagnostic slides and has edited the gross and/or microscopic portion of the report in rendering the final pathologic diagnosis. 08/11/2013 8:51 AM EDT [facility] SPECIMEN FROM SKIN / Unknown 08/06/2013 1:35 PM EST 08/06/2013 1:35 PM EST Narrative Resulting Agency Comment Spec In Lab / [facility] Flakito Santos DO PATHOLOGY/CYTOLOGY ORDERABLES Performing Organization Address [facility]/State/[facility] Phone Number [facility] [place] [address] * Pathology Addendum Report (08/06/2013 1:35 PM EST) Addendum Report ? [facility] ? Provider: ?? FLAKITO SANTOS ??Pt. Name: ?? GENEVIEVE ACEVEDO ? Acc #: ?[id number] ? Pt. ? Col Date: ?? 08/06/2013 ?/Sex: ?1965,(48 years),Male ? Rec Date: ?? 08/06/2013 ?LOC: ?[facility] ? ADDENDUM REPORT ? ---Addendum Discussion--- ? Report of Intraoperative Consultation (Frozen Section) ? Frozen section diagnosis ? AFS: Skin of left quaker ? No evidence of Basal cell carcinoma at the ? peripheral en-face margins - CIB ? This intraoperative consultation should be interpreted as a preliminary ? diagnosis pending review of the entire specimen and special studies, if ? any. ? 08/06/13 ? PPS ? 08/11/13 Verified by: ? Chano BEAUCHAMP, Anil Wynn ? Pathologist ? (Electronic Signature) ? The attending pathologist whose signature appears on this report has ? reviewed all diagnostic slides and has edited the gross and/or ? microscopic portion of the report in rendering the final pathologic ? diagnosis. JESUS GROSSMAN 08/06/2013 1:35 PM EST Flakito Santos DO PATHOLOGY/CYTOLOGY ORDERABLES Performing Organization Address City/State/[facility] Co va Phone Number JESUS GROSSMAN documented in this encounter Visit Diagnoses Not on filedocumented in this encounter Care Teams Shiatsu Therapist Relationship Specialty Start Date End Date Tory Rios MD [address] [place] [address] PCP - General 04/28/13 03/26/17 documented as of this encounter
== END 2024-03-31 16:49 | disposition home or self-care (01) ==
LOC: LBO 16:48
PROVIDERS: PCP Internal Medicine Hematology; Visit Provider Internal Medicine Hematology
DX: C09.9 Malignant neoplasm of tonsil, unspecified (principal)
CPT/HCPCS: 36415; 80053; 84439; 84443; 85025

== ENCOUNTER 2024-04-14 13:18 | Outpatient (CLI) | payer MEDICARE, SELFPAY ==
[2024-04-14 13:09] LABS: Abs Immature Grans 0.01 10^3/uL (0.0-0.06); Absolute Eosinophil Count 0.02 10^3/uL (0.0-0.7); HCT 36.4 % (40.0-50.0); HGB 12.9 g/dL (13.5-17.5); MCH 31.4 pg (27.0-33.0); MCHC 35.4 % (32.0-36.0); MCV 89 fL (80-95); MPV 8.5 fL (8.0-11.0); Platelet Count 272 10^3/uL (130-400); RBC 4.11 10^6/uL (4.36-5.78); RDW 11.7 % (11.8-14.1); RDW-SD 37.6 fL
[2024-04-14 13:36] LABS: ALT 14 U/L (16-63); AST 29 U/L (15-37); Albumin 3.1 g/dL (3.4-5.0); Alkaline Phosphatase 132 U/L (46-116); Anion Gap 7.5 mmol/L (3-11); BUN 14 mg/dL (7-18); Bilirubin, Total 0.64 mg/dL (0.2-1.0); CO2 29.5 mmol/L (21.0-32.0); CREATININE 0.8 mg/dL (0.70-1.30); Calcium 9.2 mg/dL (8.5-10.1); Chloride 92 mmol/L (98-107); Estimated GFR 102.58 (mL/min/1.73m2); FREE T4 1.04 ng/dL (0.76-1.46); Glucose 102 mg/dL (74-106); Potassium 4.3 mmol/L (3.5-5.1); Sodium 129 mmol/L (136-145); TSH 0.63 uIU/mL (0.36-3.74); Total Protein 7.2 g/dL (6.4-8.2)
[2024-04-14 13:37] LABS: Bands % 1 %
[2024-04-14 13:38] LABS: Absolute Basophil Count 0.05 10^3/uL (0.0-0.2); Absolute Lymphocyte Count 0.68 10^3/uL (1.2-3.4); Absolute Monocyte Count 0.06 10^3/uL (0.1-0.8); Atypical Lymphocytes % 10 %
[2024-04-14 13:42] LABS: Diff Comment Manual Differential; RBC Morphology Normal; WBC 1.22 10^3/uL (4.4-10.8)
== END 2024-04-14 13:19 | disposition home or self-care (01) ==
LOC: LBO 13:20
PROVIDERS: PCP Internal Medicine Hematology; Visit Provider Internal Medicine Hematology
DX: C09.9 Malignant neoplasm of tonsil, unspecified (principal)
CPT/HCPCS: 36415; 80053; 84439; 84443; 85025

== ENCOUNTER 2024-04-21 03:12 | Outpatient (CLI) | payer MEDICARE, SELFPAY ==
[2024-04-21 10:13] LABS: Abs Immature Grans 0.01 10^3/uL (0.0-0.06); Absolute Basophil Count 0.05 10^3/uL (0.0-0.2); Absolute Lymphocyte Count 0.87 10^3/uL (1.2-3.4); Absolute Monocyte Count 0.93 10^3/uL (0.1-0.8); Basophils % 1.8 %; HCT 33.2 % (40.0-50.0); HGB 11.5 g/dL (13.5-17.5); Immature Grans % 0.4 %; Lymphocytes % 31.5 %; MCH 31.3 pg (27.0-33.0); MCHC 34.6 % (32.0-36.0); MCV 91 fL (80-95); MPV 7.5 fL (8.0-11.0); Monocytes % 33.7 %; Neutrophils % 32.6 %; Platelet Count 345 10^3/uL (130-400); RBC 3.67 10^6/uL (4.36-5.78); WBC 2.76 10^3/uL (4.4-10.8)
[2024-04-21 10:39] LABS: ALT 14 U/L (16-63); AST 19 U/L (15-37); Albumin 2.8 g/dL (3.4-5.0); Alkaline Phosphatase 109 U/L (46-116); Anion Gap 2.5 mmol/L (3-11); BUN 6 mg/dL (7-18); Bilirubin, Total 0.15 mg/dL (0.2-1.0); CO2 32.5 mmol/L (21.0-32.0); CREATININE 0.8 mg/dL (0.70-1.30); Calcium 8.9 mg/dL (8.5-10.1); Chloride 100 mmol/L (98-107); Estimated GFR 102.58 (mL/min/1.73m2); FREE T4 0.95 ng/dL (0.76-1.46); Glucose 96 mg/dL (74-106); Potassium 3.7 mmol/L (3.5-5.1); Sodium 135 mmol/L (136-145); TSH 0.78 uIU/mL (0.36-3.74); Total Protein 6.4 g/dL (6.4-8.2)
== END 2024-04-21 03:13 | disposition home or self-care (01) ==
LOC: LBO 03:13
PROVIDERS: PCP Internal Medicine Hematology; Visit Provider Internal Medicine Hematology
DX: C09.9 Malignant neoplasm of tonsil, unspecified (principal)
CPT/HCPCS: 36415; 80053; 84439; 84443; 85025

== ENCOUNTER 2024-04-28 12:04 | Outpatient (CLI) | payer MEDICARE, SELFPAY ==
[2024-04-28 10:11] LABS: Abs Immature Grans 0.03 10^3/uL (0.0-0.06); Absolute Basophil Count 0.04 10^3/uL (0.0-0.2); Absolute Eosinophil Count 0.01 10^3/uL (0.0-0.7); Absolute Monocyte Count 0.88 10^3/uL (0.1-0.8); Absolute Neutrophil Count 4.91 10^3/uL (1.2-6.7); Basophils % 0.6 %; Eosinophils % 0.1 %; HCT 36.6 % (40.0-50.0); HGB 12.1 g/dL (13.5-17.5); Immature Grans % 0.4 %; Lymphocytes % 15.8 %; MCH 30.7 pg (27.0-33.0); MCHC 33.1 % (32.0-36.0); MCV 93 fL (80-95); MPV 7.5 fL (8.0-11.0); Monocytes % 12.6 %; Neutrophils % 70.5 %; Platelet Count 342 10^3/uL (130-400); RBC 3.94 10^6/uL (4.36-5.78); RDW 12.6 % (11.8-14.1); RDW-SD 43.1 fL; WBC 6.97 10^3/uL (4.4-10.8)
[2024-04-28 10:34] LABS: ALT 13 U/L (16-63); AST 17 U/L (15-37); Albumin 3.1 g/dL (3.4-5.0); Alkaline Phosphatase 113 U/L (46-116); Anion Gap 3.7 mmol/L (3-11); BUN 9 mg/dL (7-18); Bilirubin, Total 0.14 mg/dL (0.2-1.0); CO2 30.3 mmol/L (21.0-32.0); CREATININE 0.8 mg/dL (0.70-1.30); Calcium 8.6 mg/dL (8.5-10.1); Chloride 102 mmol/L (98-107); Estimated GFR 102.58 (mL/min/1.73m2); FREE T4 0.71 ng/dL (0.76-1.46); Glucose 77 mg/dL (74-106); Potassium 4.4 mmol/L (3.5-5.1); Sodium 136 mmol/L (136-145); TSH 0.69 uIU/mL (0.36-3.74); Total Protein 6.8 g/dL (6.4-8.2)
== END 2024-04-28 12:05 | disposition home or self-care (01) ==
LOC: LBO 12:06
PROVIDERS: PCP Internal Medicine Hematology; Visit Provider Internal Medicine Hematology
DX: C09.9 Malignant neoplasm of tonsil, unspecified (principal)
CPT/HCPCS: 36415; 80053; 84439; 84443; 85025

== ENCOUNTER 2024-05-05 04:45 | Outpatient (CLI) | payer MEDICARE, SELFPAY ==
[2024-05-05 12:39] LABS: HCT 35.3 % (40.0-50.0); HGB 12.1 g/dL (13.5-17.5); MCH 30.7 pg (27.0-33.0); MCHC 34.3 % (32.0-36.0); MCV 90 fL (80-95); MPV 9.1 fL (8.0-11.0); Platelet Count 192 10^3/uL (130-400); RBC 3.94 10^6/uL (4.36-5.78); RDW 12.8 % (11.8-14.1); RDW-SD 42.2 fL
[2024-05-05 13:06] LABS: ALT 15 U/L (16-63); AST 18 U/L (15-37); Albumin 3.1 g/dL (3.4-5.0); Alkaline Phosphatase 160 U/L (46-116); Anion Gap 7.7 mmol/L (3-11); BUN 3 mg/dL (7-18); CO2 28.3 mmol/L (21.0-32.0); CREATININE 0.8 mg/dL (0.70-1.30); Calcium 8.9 mg/dL (8.5-10.1); Chloride 97 mmol/L (98-107); Estimated GFR 101.95 (mL/min/1.73m2); FREE T4 0.76 ng/dL (0.76-1.46); Glucose 123 mg/dL (74-106); Potassium 4.3 mmol/L (3.5-5.1); Sodium 133 mmol/L (136-145); TSH 0.83 uIU/mL (0.36-3.74); Total Protein 6.9 g/dL (6.4-8.2)
[2024-05-05 13:10] LABS: Absolute Basophil Count 0.26 10^3/uL (0.0-0.2); Absolute Eosinophil Count 0.26 10^3/uL (0.0-0.7); Absolute Lymphocyte Count 1.72 10^3/uL (1.2-3.4); Absolute Monocyte Count 2.11 10^3/uL (0.1-0.8); Absolute Neutrophil Count 8.84 10^3/uL (1.2-6.7); Atypical Lymphocytes % 2 %; Bands % 3 %
[2024-05-05 13:11] LABS: Diff Comment Manual Differential; RBC Morphology Normal
== END 2024-05-05 04:46 | disposition home or self-care (01) ==
LOC: LBO 04:45
PROVIDERS: PCP Internal Medicine Hematology; Visit Provider Internal Medicine Hematology
DX: C09.9 Malignant neoplasm of tonsil, unspecified (principal)
CPT/HCPCS: 36415; 80053; 84439; 84443; 85025

== ENCOUNTER 2024-05-19 02:08 | Outpatient (CLI) | payer MEDICARE, SELFPAY ==
[2024-05-19 08:28] LABS: Abs Immature Grans 0.02 10^3/uL (0.0-0.06); Absolute Basophil Count 0.04 10^3/uL (0.0-0.2); Absolute Eosinophil Count 0.01 10^3/uL (0.0-0.7); Absolute Lymphocyte Count 1.16 10^3/uL (1.2-3.4); Absolute Monocyte Count 0.97 10^3/uL (0.1-0.8); Absolute Neutrophil Count 4.93 10^3/uL (1.2-6.7); Basophils % 0.6 %; Eosinophils % 0.1 %; HCT 32.6 % (40.0-50.0); HGB 11.3 g/dL (13.5-17.5); Immature Grans % 0.3 %; Lymphocytes % 16.3 %; MCH 31.6 pg (27.0-33.0); MCHC 34.7 % (32.0-36.0); MCV 91 fL (80-95); MPV 7.9 fL (8.0-11.0); Monocytes % 13.6 %; Neutrophils % 69.1 %; Platelet Count 413 10^3/uL (130-400); RBC 3.58 10^6/uL (4.36-5.78); RDW 14.4 % (11.8-14.1); RDW-SD 47.8 fL; WBC 7.13 10^3/uL (4.4-10.8)
[2024-05-19 08:53] LABS: ALT 12 U/L (16-63); AST 16 U/L (15-37); Albumin 3.2 g/dL (3.4-5.0); Alkaline Phosphatase 125 U/L (46-116); Anion Gap 6.7 mmol/L (3-11); BUN 6 mg/dL (7-18); CO2 29.3 mmol/L (21.0-32.0); CREATININE 0.8 mg/dL (0.70-1.30); Calcium 8.6 mg/dL (8.5-10.1); Chloride 95 mmol/L (98-107); Estimated GFR 101.95 (mL/min/1.73m2); FREE T4 0.76 ng/dL (0.76-1.46); Glucose 100 mg/dL (74-106); Potassium 4.4 mmol/L (3.5-5.1); Sodium 131 mmol/L (136-145); TSH 0.78 uIU/mL (0.36-3.74); Total Protein 6.8 g/dL (6.4-8.2)
== END 2024-05-19 02:09 | disposition home or self-care (01) ==
LOC: LBO 02:08
PROVIDERS: PCP Internal Medicine Hematology; Visit Provider Internal Medicine Hematology
DX: C09.9 Malignant neoplasm of tonsil, unspecified (principal)
CPT/HCPCS: 36415; 80053; 84439; 84443; 85025

== ENCOUNTER 2024-05-26 02:30 | Outpatient (CLI) | payer MEDICARE, SELFPAY ==
[2024-05-26 08:35] LABS: Abs Immature Grans 0.22 10^3/uL (0.0-0.06); Absolute Basophil Count 0.02 10^3/uL (0.0-0.2); Absolute Eosinophil Count 0.01 10^3/uL (0.0-0.7); Absolute Monocyte Count 1.71 10^3/uL (0.1-0.8); Absolute Neutrophil Count 8.54 10^3/uL (1.2-6.7); Basophils % 0.2 %; Eosinophils % 0.1 %; HCT 31.9 % (40.0-50.0); Immature Grans % 1.9 %; Lymphocytes % 9.2 %; MCH 31.2 pg (27.0-33.0); MCHC 34.5 % (32.0-36.0); MCV 90 fL (80-95); MPV 8.9 fL (8.0-11.0); Monocytes % 14.8 %; Neutrophils % 73.8 %; Platelet Count 235 10^3/uL (130-400); RBC 3.53 10^6/uL (4.36-5.78); RDW 14.6 % (11.8-14.1); RDW-SD 48.4 fL; WBC 11.57 10^3/uL (4.4-10.8)
[2024-05-26 09:01] LABS: Absolute Lymphocyte Count 1.06 10^3/uL (1.2-3.4)
[2024-05-26 09:13] LABS: ALT 12 U/L (16-63); AST 17 U/L (15-37); Albumin 3.1 g/dL (3.4-5.0); Alkaline Phosphatase 157 U/L (46-116); Anion Gap 3.8 mmol/L (3-11); BUN 3 mg/dL (7-18); Bilirubin, Total 0.38 mg/dL (0.2-1.0); CO2 31.2 mmol/L (21.0-32.0); CREATININE 0.7 mg/dL (0.70-1.30); Calcium 8.6 mg/dL (8.5-10.1); Chloride 96 mmol/L (98-107); Estimated GFR 106.14 (mL/min/1.73m2); FREE T4 0.87 ng/dL (0.76-1.46); Glucose 96 mg/dL (74-106); Potassium 3.9 mmol/L (3.5-5.1); Sodium 131 mmol/L (136-145); TSH 0.46 uIU/mL (0.36-3.74); Total Protein 6.4 g/dL (6.4-8.2)
== END 2024-05-26 02:31 | disposition home or self-care (01) ==
LOC: LBO 02:30
PROVIDERS: PCP Internal Medicine Hematology; Visit Provider Internal Medicine Hematology
DX: C09.9 Malignant neoplasm of tonsil, unspecified (principal)
CPT/HCPCS: 36415; 80053; 84439; 84443; 85025

== ENCOUNTER 2024-06-09 03:56 | Outpatient (CLI) | payer MEDICARE, SELFPAY ==
[2024-06-09 08:27] LABS: Eosinophils % 0.2 %; HCT 33.5 % (40.0-50.0); HGB 11.5 g/dL (13.5-17.5); MCH 31.9 pg (27.0-33.0); MCHC 34.3 % (32.0-36.0); MCV 93 fL (80-95); Monocytes % 16.4 %; Neutrophils % 65.3 %; Platelet Count 398 10^3/uL (130-400); RDW-SD 54.6 fL; WBC 6.65 10^3/uL (4.4-10.8)
[2024-06-09 08:28] LABS: Abs Immature Grans 0.02 10^3/uL (0.0-0.06); Absolute Basophil Count 0.05 10^3/uL (0.0-0.2); Absolute Eosinophil Count 0.01 10^3/uL (0.0-0.7); Absolute Lymphocyte Count 1.13 10^3/uL (1.2-3.4); Absolute Monocyte Count 1.09 10^3/uL (0.1-0.8); Absolute Neutrophil Count 4.35 10^3/uL (1.2-6.7); Basophils % 0.8 %; Immature Grans % 0.3 %
[2024-06-09 08:53] LABS: ALT 17 U/L (16-63); AST 22 U/L (15-37); Albumin 3.2 g/dL (3.4-5.0); Alkaline Phosphatase 114 U/L (46-116); Anion Gap 0.3 mmol/L (3-11); BUN 7 mg/dL (7-18); Bilirubin, Total 0.21 mg/dL (0.2-1.0); CO2 31.7 mmol/L (21.0-32.0); CREATININE 0.7 mg/dL (0.70-1.30); Calcium 8.6 mg/dL (8.5-10.1); Chloride 99 mmol/L (98-107); Estimated GFR 106.14 (mL/min/1.73m2); FREE T4 0.66 ng/dL (0.76-1.46); Glucose 90 mg/dL (74-106); Potassium 4.4 mmol/L (3.5-5.1); Sodium 131 mmol/L (136-145); Total Protein 6.8 g/dL (6.4-8.2)
== END 2024-06-09 03:57 | disposition home or self-care (01) ==
PROVIDERS: PCP Internal Medicine Hematology; Visit Provider Internal Medicine Hematology
DX: C09.9 Malignant neoplasm of tonsil, unspecified (principal)
CPT/HCPCS: 36415; 80053; 84439; 84443; 85025

== ENCOUNTER 2024-06-16 04:27 | Outpatient (CLI) | payer MEDICARE, SELFPAY ==
[2024-06-16 12:35] LABS: Abs Immature Grans 0.45 10^3/uL (0.0-0.06); HCT 29.6 % (40.0-50.0); HGB 10.1 g/dL (13.5-17.5); MCH 32.1 pg (27.0-33.0); MCHC 34.1 % (32.0-36.0); MCV 94 fL (80-95); MPV 9.1 fL (8.0-11.0); Platelet Count 179 10^3/uL (130-400); RBC 3.15 10^6/uL (4.36-5.78); RDW 15.5 % (11.8-14.1); RDW-SD 53.5 fL
[2024-06-16 12:56] LABS: Absolute Lymphocyte Count 1.52 10^3/uL (1.2-3.4); Absolute Monocyte Count 1.69 10^3/uL (0.1-0.8); Absolute Neutrophil Count 13.69 10^3/uL (1.2-6.7); Atypical Lymphocytes % 0 %; Bands % 0 %
[2024-06-16 12:57] LABS: Diff Comment Manual Differential
[2024-06-16 13:08] LABS: ALT 13 U/L (16-63); AST 15 U/L (15-37); Albumin 3.2 g/dL (3.4-5.0); Alkaline Phosphatase 162 U/L (46-116); Anion Gap 3.5 mmol/L (3-11); BUN 3 mg/dL (7-18); Bilirubin, Total 0.27 mg/dL (0.2-1.0); CO2 33.5 mmol/L (21.0-32.0); CREATININE 0.7 mg/dL (0.70-1.30); Calcium 8.9 mg/dL (8.5-10.1); Chloride 95 mmol/L (98-107); Estimated GFR 106.14 (mL/min/1.73m2); FREE T4 0.84 ng/dL (0.76-1.46); Glucose 79 mg/dL (74-106); Potassium 3.9 mmol/L (3.5-5.1); Sodium 132 mmol/L (136-145); TSH 1.05 uIU/mL (0.36-3.74); Total Protein 6.3 g/dL (6.4-8.2)
== END 2024-06-16 04:28 | disposition home or self-care (01) ==
LOC: LBO 04:27
PROVIDERS: PCP Internal Medicine Hematology; Visit Provider Internal Medicine Hematology
DX: C09.9 Malignant neoplasm of tonsil, unspecified (principal)
CPT/HCPCS: 36415; 80053; 84439; 84443; 85025

== ENCOUNTER 2024-06-30 13:50 | Outpatient (CLI) | payer MEDICARE, SELFPAY ==
[2024-06-30 12:57] LABS: Abs Immature Grans 0.02 10^3/uL (0.0-0.06); Absolute Basophil Count 0.04 10^3/uL (0.0-0.2); Absolute Lymphocyte Count 1.52 10^3/uL (1.2-3.4); Absolute Monocyte Count 1.05 10^3/uL (0.1-0.8); Absolute Neutrophil Count 4.76 10^3/uL (1.2-6.7); Basophils % 0.5 %; HCT 33.5 % (40.0-50.0); HGB 11.6 g/dL (13.5-17.5); Immature Grans % 0.3 %; Lymphocytes % 20.6 %; MCH 32.4 pg (27.0-33.0); MCHC 34.6 % (32.0-36.0); MCV 94 fL (80-95); MPV 8.3 fL (8.0-11.0); Monocytes % 14.2 %; Neutrophils % 64.4 %; Platelet Count 311 10^3/uL (130-400); RBC 3.58 10^6/uL (4.36-5.78); RDW 15.5 % (11.8-14.1); RDW-SD 53.8 fL; WBC 7.39 10^3/uL (4.4-10.8)
[2024-06-30 13:21] LABS: ALT 18 U/L (16-63); AST 22 U/L (15-37); Albumin 3.7 g/dL (3.4-5.0); Alkaline Phosphatase 124 U/L (46-116); Anion Gap 5.4 mmol/L (3-11); BUN 8 mg/dL (7-18); Bilirubin, Total 0.54 mg/dL (0.2-1.0); CO2 29.6 mmol/L (21.0-32.0); CREATININE 0.8 mg/dL (0.70-1.30); Chloride 96 mmol/L (98-107); Estimated GFR 101.95 (mL/min/1.73m2); FREE T4 0.83 ng/dL (0.76-1.46); Glucose 133 mg/dL (74-106); Potassium 4.1 mmol/L (3.5-5.1); Sodium 131 mmol/L (136-145); TSH 0.61 uIU/mL (0.36-3.74); Total Protein 7.2 g/dL (6.4-8.2)
== END 2024-06-30 13:51 | disposition home or self-care (01) ==
LOC: LBO 13:52
PROVIDERS: PCP Internal Medicine Hematology; Visit Provider Internal Medicine Hematology
DX: C09.9 Malignant neoplasm of tonsil, unspecified (principal)
CPT/HCPCS: 36415; 80053; 84439; 84443; 85025

== ENCOUNTER 2024-07-21 02:06 | Outpatient (CLI) | payer MEDICARE, SELFPAY ==
[2024-07-21 12:46] LABS: Abs Immature Grans 0.01 10^3/uL (0.0-0.06); Absolute Basophil Count 0.04 10^3/uL (0.0-0.2); Absolute Lymphocyte Count 1.39 10^3/uL (1.2-3.4); Absolute Neutrophil Count 2.98 10^3/uL (1.2-6.7); Basophils % 0.8 %; Eosinophils % 1.9 %; HGB 11.6 g/dL (13.5-17.5); Immature Grans % 0.2 %; Lymphocytes % 26.1 %; MCHC 34.1 % (32.0-36.0); MCV 94 fL (80-95); MPV 7.7 fL (8.0-11.0); Platelet Count 255 10^3/uL (130-400); RBC 3.62 10^6/uL (4.36-5.78); RDW 13.2 % (11.8-14.1); RDW-SD 45.6 fL; WBC 5.32 10^3/uL (4.4-10.8)
[2024-07-21 13:23] LABS: ALT 23 U/L (16-63); AST 21 U/L (15-37); Albumin 3.4 g/dL (3.4-5.0); Alkaline Phosphatase 116 U/L (46-116); Anion Gap 4.4 mmol/L (3-11); BUN 8 mg/dL (7-18); Bilirubin, Total 0.39 mg/dL (0.2-1.0); CO2 29.6 mmol/L (21.0-32.0); CREATININE 0.8 mg/dL (0.70-1.30); Calcium 8.9 mg/dL (8.5-10.1); Chloride 98 mmol/L (98-107); Estimated GFR 101.95 (mL/min/1.73m2); FREE T4 0.92 ng/dL (0.76-1.46); Glucose 107 mg/dL (74-106); Potassium 4.2 mmol/L (3.5-5.1); Sodium 132 mmol/L (136-145); TSH 0.26 uIU/mL (0.36-3.74); Total Protein 6.9 g/dL (6.4-8.2)
[2024-07-21 22:28] LABS: CEA 3.8 ng/mL (See Note)
== END 2024-07-21 02:07 | disposition home or self-care (01) ==
PROVIDERS: Colon & Rectal Surgery; PCP Internal Medicine Hematology; Visit Provider Internal Medicine Hematology
DX: C09.9 Malignant neoplasm of tonsil, unspecified (principal); C18.8 Malignant neoplasm of overlapping sites of colon
CPT/HCPCS: 36415; 80053; 82378; 84439; 84443; 85025

== ENCOUNTER 2024-08-11 04:23 | Outpatient (CLI) | payer MEDICARE, SELFPAY ==
[2024-08-11 12:31] LABS: Abs Immature Grans 0.02 10^3/uL (0.0-0.06); Absolute Basophil Count 0.03 10^3/uL (0.0-0.2); Absolute Eosinophil Count 0.06 10^3/uL (0.0-0.7); Absolute Monocyte Count 0.65 10^3/uL (0.1-0.8); Absolute Neutrophil Count 7.01 10^3/uL (1.2-6.7); Basophils % 0.4 %; Eosinophils % 0.7 %; HCT 34.3 % (40.0-50.0); HGB 11.9 g/dL (13.5-17.5); Immature Grans % 0.2 %; Lymphocytes % 7.2 %; MCH 31.4 pg (27.0-33.0); MCHC 34.7 % (32.0-36.0); MCV 91 fL (80-95); MPV 7.8 fL (8.0-11.0); Monocytes % 7.8 %; Neutrophils % 83.7 %; Platelet Count 351 10^3/uL (130-400); RBC 3.79 10^6/uL (4.36-5.78); RDW 12.6 % (11.8-14.1); RDW-SD 41.4 fL; WBC 8.37 10^3/uL (4.4-10.8)
[2024-08-11 12:58] LABS: ALT 25 U/L (16-63); AST 22 U/L (15-37); Albumin 3.4 g/dL (3.4-5.0); Alkaline Phosphatase 120 U/L (46-116); Anion Gap 7.1 mmol/L (3-11); BUN 7 mg/dL (7-18); Bilirubin, Total 0.3 mg/dL (0.2-1.0); CO2 28.9 mmol/L (21.0-32.0); Calcium 8.9 mg/dL (8.5-10.1); Chloride 97 mmol/L (98-107); Glucose 104 mg/dL (74-106); Potassium 3.9 mmol/L (3.5-5.1); Sodium 133 mmol/L (136-145); TSH 2.27 uIU/mL (0.36-3.74); Total Protein 7.1 g/dL (6.4-8.2)
[2024-08-11 22:07] LABS: T4, Free 0.8 ng/dL (0.8-2.2)
== END 2024-08-11 04:24 | disposition home or self-care (01) ==
LOC: LBO 04:23
PROVIDERS: PCP Internal Medicine Hematology; Visit Provider Internal Medicine Hematology
DX: C09.9 Malignant neoplasm of tonsil, unspecified (principal)
CPT/HCPCS: 36415; 80053; 84439; 84443; 85025

== ENCOUNTER 2024-09-01 01:34 | Outpatient (RCR) | payer MEDICARE, SELFPAY ==
[2024-08-19] MEDS: Normal Saline Flush 10 ML SYR IVP (11:44)
[2024-08-19 11:49] LABS: Abs Immature Grans 0.01 10^3/uL (0.0-0.06); Absolute Basophil Count 0.02 10^3/uL (0.0-0.2); Absolute Lymphocyte Count 1.65 10^3/uL (1.2-3.4); Absolute Monocyte Count 0.61 10^3/uL (0.1-0.8); Absolute Neutrophil Count 2.35 10^3/uL (1.2-6.7); Basophils % 0.4 %; HCT 34.5 % (40.0-50.0); HGB 11.7 g/dL (13.5-17.5); Immature Grans % 0.2 %; Lymphocytes % 35.6 %; MCH 30.3 pg (27.0-33.0); MCHC 33.9 % (32.0-36.0); MCV 89 fL (80-95); MPV 8.5 fL (8.0-11.0); Monocytes % 13.1 %; Neutrophils % 50.7 %; Platelet Count 284 10^3/uL (130-400); RBC 3.86 10^6/uL (4.36-5.78); RDW 12.4 % (11.8-14.1); RDW-SD 40.7 fL; WBC 4.64 10^3/uL (4.4-10.8)
[2024-08-19 12:07] LABS: ALT 21 U/L (16-63); AST 18 U/L (15-37); Albumin 3.2 g/dL (3.4-5.0); Alkaline Phosphatase 128 U/L (46-116); Anion Gap 6.5 mmol/L (3-11); BUN 9 mg/dL (7-18); Bilirubin, Total 0.2 mg/dL (0.2-1.0); CO2 27.5 mmol/L (21.0-32.0); CREATININE 0.7 mg/dL (0.70-1.30); Calcium 8.7 mg/dL (8.5-10.1); Chloride 97 mmol/L (98-107); Estimated GFR 106.14 (mL/min/1.73m2); Glucose 91 mg/dL (74-106); Potassium 4.7 mmol/L (3.5-5.1); Sodium 131 mmol/L (136-145); Total Protein 6.9 g/dL (6.4-8.2)
== END 2024-09-01 23:59 | disposition home or self-care (01) ==
LOC: INF 01:34
PROVIDERS: PCP Internal Medicine Hematology; Visit Provider Internal Medicine Hematology
DX: C09.9 Malignant neoplasm of tonsil, unspecified (principal)
CPT/HCPCS: 36591; 80053; 96523; 85025

== ENCOUNTER 2024-09-22 02:22 | Outpatient (RCR) | payer MEDICARE, SELFPAY ==
[2024-09-02 10:50] LABS: Abs Immature Grans 0.01 10^3/uL (0.0-0.06); Absolute Basophil Count 0.01 10^3/uL (0.0-0.2); Absolute Lymphocyte Count 1.51 10^3/uL (1.2-3.4); Absolute Monocyte Count 0.48 10^3/uL (0.1-0.8); Absolute Neutrophil Count 1.84 10^3/uL (1.2-6.7); Basophils % 0.3 %; HCT 33.4 % (40.0-50.0); HGB 11.4 g/dL (13.5-17.5); Immature Grans % 0.3 %; Lymphocytes % 39.2 %; MCH 30.1 pg (27.0-33.0); MCHC 34.1 % (32.0-36.0); MCV 88 fL (80-95); MPV 8.6 fL (8.0-11.0); Monocytes % 12.5 %; Neutrophils % 47.7 %; Platelet Count 138 10^3/uL (130-400); RBC 3.79 10^6/uL (4.36-5.78); RDW 12.8 % (11.8-14.1); RDW-SD 39.5 fL; WBC 3.85 10^3/uL (4.4-10.8)
[2024-09-02] MEDS: Normal Saline Flush 10 ML SYR IVP (11:03)
[2024-09-02 11:14] LABS: ALT 21 U/L (16-63); AST 22 U/L (15-37); Albumin 3.4 g/dL (3.4-5.0); Alkaline Phosphatase 111 U/L (46-116); Anion Gap 8.1 mmol/L (3-11); BUN 9 mg/dL (7-18); Bilirubin, Total 0.3 mg/dL (0.2-1.0); CO2 26.9 mmol/L (21.0-32.0); Calcium 8.8 mg/dL (8.5-10.1); Chloride 98 mmol/L (98-107); Glucose 111 mg/dL (74-106); Potassium 4.4 mmol/L (3.5-5.1); Sodium 133 mmol/L (136-145); TSH 1.68 uIU/mL (0.36-3.74); Total Protein 7.1 g/dL (6.4-8.2)
[2024-09-02 18:34] LABS: CEA 3.7 ng/mL (See Note)
[2024-09-18] MEDS: Normal Saline Flush 10 ML SYR IVP (10:13)
[2024-09-18 10:18] LABS: Abs Immature Grans 0.01 10^3/uL (0.0-0.06); Absolute Basophil Count 0.01 10^3/uL (0.0-0.2); Absolute Lymphocyte Count 1.21 10^3/uL (1.2-3.4); Absolute Monocyte Count 0.76 10^3/uL (0.1-0.8); Basophils % 0.3 %; HCT 32.5 % (40.0-50.0); HGB 11.4 g/dL (13.5-17.5); Immature Grans % 0.3 %; Lymphocytes % 37.9 %; MCH 31.1 pg (27.0-33.0); MCHC 35.1 % (32.0-36.0); MCV 89 fL (80-95); MPV 8.8 fL (8.0-11.0); Monocytes % 23.8 %; Neutrophils % 37.7 %; Platelet Count 138 10^3/uL (130-400); RBC 3.67 10^6/uL (4.36-5.78); RDW 15.6 % (11.8-14.1); RDW-SD 42.5 fL; WBC 3.19 10^3/uL (4.4-10.8)
[2024-09-18 10:52] LABS: ALT 25 U/L (16-63); AST 36 U/L (15-37); Albumin 3.2 g/dL (3.4-5.0); Alkaline Phosphatase 106 U/L (46-116); Anion Gap 5.8 mmol/L (3-11); BUN 12 mg/dL (7-18); Bilirubin, Total 0.3 mg/dL (0.2-1.0); CO2 27.2 mmol/L (21.0-32.0); Calcium 8.9 mg/dL (8.5-10.1); Chloride 100 mmol/L (98-107); Glucose 109 mg/dL (74-106); Potassium 4.2 mmol/L (3.5-5.1); Sodium 133 mmol/L (136-145); TSH 0.63 uIU/mL (0.36-3.74); Total Protein 6.9 g/dL (6.4-8.2)
[2024-09-18 18:32] LABS: CEA 2.6 ng/mL (See Note)
== END 2024-10-01 23:59 | disposition home or self-care (01) ==
LOC: INF 02:22
PROVIDERS: Colon & Rectal Surgery; PCP Internal Medicine Hematology; Visit Provider Internal Medicine Hematology
DX: C18.8 Malignant neoplasm of overlapping sites of colon (principal); C09.9 Malignant neoplasm of tonsil, unspecified; Z45.2 Encounter for adjustment and management of vascular access device; Z79.899 Other long term (current) drug therapy
CPT/HCPCS: 36591; 80053; 82378; 84439; 84443; 85025

== ENCOUNTER 2024-10-30 02:59 | Outpatient (RCR) | payer MEDICARE, SELFPAY ==
[2024-10-02 11:41] LABS: Absolute Lymphocyte Count 0.94 10^3/uL (1.2-3.4); Absolute Monocyte Count 0.53 10^3/uL (0.1-0.8); Absolute Neutrophil Count 1.39 10^3/uL (1.2-6.7); HCT 31.5 % (40.0-50.0); HGB 10.8 g/dL (13.5-17.5); Lymphocytes % 32.9 %; MCH 30.9 pg (27.0-33.0); MCHC 34.3 % (32.0-36.0); MCV 90 fL (80-95); MPV 9.8 fL (8.0-11.0); Monocytes % 18.5 %; Neutrophils % 48.6 %; RDW 18.6 % (11.8-14.1); RDW-SD 54.7 fL; WBC 2.86 10^3/uL (4.4-10.8)
[2024-10-02 12:01] LABS: Platelet Count 88 10^3/uL (130-400)
[2024-10-02 12:03] LABS: ALT 26 U/L (16-63); AST 41 U/L (15-37); Albumin 3.2 g/dL (3.4-5.0); Alkaline Phosphatase 132 U/L (46-116); Anion Gap 6.3 mmol/L (3-11); BUN 8 mg/dL (7-18); Bilirubin, Total 0.2 mg/dL (0.2-1.0); CO2 27.7 mmol/L (21.0-32.0); Calcium 8.9 mg/dL (8.5-10.1); Chloride 102 mmol/L (98-107); FREE T4 0.74 ng/dL (0.76-1.46); Glucose 114 mg/dL (74-106); Sodium 136 mmol/L (136-145); TSH 0.56 uIU/mL (0.36-3.74); Total Protein 6.9 g/dL (6.4-8.2)
[2024-10-02] MEDS: Normal Saline Flush 10 ML SYR IVP (12:37)
[2024-10-23] MEDS: Normal Saline Flush 10 ML SYR IVP (08:44)
[2024-10-23 08:56] LABS: Abs Immature Grans 0.06 10^3/uL (0.0-0.06); Absolute Basophil Count 0.04 10^3/uL (0.0-0.2); Absolute Lymphocyte Count 1.13 10^3/uL (1.2-3.4); Absolute Monocyte Count 1.18 10^3/uL (0.1-0.8); Basophils % 0.6 %; HCT 32.1 % (40.0-50.0); Immature Grans % 0.9 %; Lymphocytes % 16.8 %; MCH 31.3 pg (27.0-33.0); MCHC 34.3 % (32.0-36.0); MCV 91 fL (80-95); MPV 8.7 fL (8.0-11.0); Monocytes % 17.6 %; Neutrophils % 64.1 %; Platelet Count 502 10^3/uL (130-400); RBC 3.52 10^6/uL (4.36-5.78); RDW 22.5 % (11.8-14.1); RDW-SD 70.2 fL; WBC 6.71 10^3/uL (4.4-10.8)
[2024-10-23 09:22] LABS: Anisocytosis 1+; Diff Comment RBC Morph Reviewed; Polychromasia Present
[2024-10-23 09:41] LABS: ALT 34 U/L (16-63); AST 38 U/L (15-37); Albumin 2.9 g/dL (3.4-5.0); Alkaline Phosphatase 218 U/L (46-116); Anion Gap 7.4 mmol/L (3-11); BUN 6 mg/dL (7-18); Bilirubin, Total 0.4 mg/dL (0.2-1.0); CO2 26.6 mmol/L (21.0-32.0); CREATININE 0.7 mg/dL (0.70-1.30); Calcium 9.3 mg/dL (8.5-10.1); Chloride 92 mmol/L (98-107); Estimated GFR 106.14 (mL/min/1.73m2); FREE T4 1.06 ng/dL (0.76-1.46); Glucose 100 mg/dL (74-106); Potassium 4.4 mmol/L (3.5-5.1); Sodium 126 mmol/L (136-145); TSH 0.55 uIU/mL (0.36-3.74); Total Protein 7.4 g/dL (6.4-8.2)
[2024-10-30] MEDS: Normal Saline Flush 10 ML SYR IVP (09:22)
[2024-10-30 09:57] LABS: Abs Immature Grans 0.05 10^3/uL (0.0-0.06); Absolute Basophil Count 0.07 10^3/uL (0.0-0.2); Absolute Eosinophil Count 0.02 10^3/uL (0.0-0.7); Absolute Lymphocyte Count 1.26 10^3/uL (1.2-3.4); Absolute Monocyte Count 1.25 10^3/uL (0.1-0.8); Absolute Neutrophil Count 6.68 10^3/uL (1.2-6.7); Basophils % 0.8 %; Eosinophils % 0.2 %; HCT 31.5 % (40.0-50.0); Immature Grans % 0.5 %; Lymphocytes % 13.5 %; MCH 31.5 pg (27.0-33.0); MCHC 34.9 % (32.0-36.0); MCV 90 fL (80-95); MPV 8.3 fL (8.0-11.0); Monocytes % 13.4 %; Neutrophils % 71.6 %; Platelet Count 470 10^3/uL (130-400); RBC 3.49 10^6/uL (4.36-5.78); RDW 21.3 % (11.8-14.1); RDW-SD 68.6 fL; WBC 9.33 10^3/uL (4.4-10.8)
[2024-10-30 10:27] LABS: ALT 31 U/L (16-63); AST 32 U/L (15-37); Albumin 3.1 g/dL (3.4-5.0); Alkaline Phosphatase 232 U/L (46-116); Anion Gap 4.3 mmol/L (3-11); BUN 6 mg/dL (7-18); Bilirubin, Total 0.5 mg/dL (0.2-1.0); CO2 27.7 mmol/L (21.0-32.0); CREATININE 0.7 mg/dL (0.70-1.30); Calcium 9.1 mg/dL (8.5-10.1); Chloride 91 mmol/L (98-107); Estimated GFR 106.14 (mL/min/1.73m2); FREE T4 0.99 ng/dL (0.76-1.46); Glucose 93 mg/dL (74-106); Potassium 4.4 mmol/L (3.5-5.1); TSH 0.59 uIU/mL (0.36-3.74); Total Protein 7.3 g/dL (6.4-8.2)
[2024-10-30 10:29] LABS: Sodium 123 mmol/L (136-145)
[2024-10-30 19:04] LABS: CEA 2.3 ng/mL (See Note)
== END 2024-11-01 23:59 | disposition home or self-care (01) ==
LOC: INF 02:59
PROVIDERS: Colon & Rectal Surgery; PCP Internal Medicine Hematology; Visit Provider Internal Medicine Hematology
DX: C09.9 Malignant neoplasm of tonsil, unspecified (principal); C18.8 Malignant neoplasm of overlapping sites of colon; Z45.2 Encounter for adjustment and management of vascular access device; Z79.899 Other long term (current) drug therapy
CPT/HCPCS: 36591; 80053; 82378; 84439; 84443; 85025

== ENCOUNTER 2024-11-27 00:58 | Outpatient (RCR) | payer MEDICARE, SELFPAY ==
[2024-11-13 11:07] LABS: Abs Immature Grans 0.01 10^3/uL (0.0-0.06); Absolute Basophil Count 0.02 10^3/uL (0.0-0.2); Absolute Eosinophil Count 0.04 10^3/uL (0.0-0.7); Absolute Lymphocyte Count 0.87 10^3/uL (1.2-3.4); Absolute Monocyte Count 0.81 10^3/uL (0.1-0.8); Absolute Neutrophil Count 3.94 10^3/uL (1.2-6.7); Basophils % 0.4 %; Eosinophils % 0.7 %; HGB 10.2 g/dL (13.5-17.5); Immature Grans % 0.2 %; Lymphocytes % 15.3 %; MCH 33.2 pg (27.0-33.0); MCHC 35.2 % (32.0-36.0); MCV 95 fL (80-95); MPV 8.6 fL (8.0-11.0); Monocytes % 14.2 %; Neutrophils % 69.2 %; Platelet Count 235 10^3/uL (130-400); RBC 3.07 10^6/uL (4.36-5.78); RDW 19.9 % (11.8-14.1); RDW-SD 67.8 fL; WBC 5.69 10^3/uL (4.4-10.8)
[2024-11-13 11:49] LABS: ALT 25 U/L (16-63); AST 29 U/L (15-37); Albumin 3.1 g/dL (3.4-5.0); Alkaline Phosphatase 195 U/L (46-116); Anion Gap 5.2 mmol/L (3-11); BUN 8 mg/dL (7-18); Bilirubin, Total 0.3 mg/dL (0.2-1.0); CO2 26.8 mmol/L (21.0-32.0); CREATININE 0.7 mg/dL (0.70-1.30); Chloride 95 mmol/L (98-107); Estimated GFR 106.14 (mL/min/1.73m2); FREE T4 0.96 ng/dL (0.76-1.46); Glucose 102 mg/dL (74-106); Sodium 127 mmol/L (136-145); Total Protein 7.1 g/dL (6.4-8.2)
[2024-11-13] MEDS: Normal Saline Flush 10 ML SYR IVP (13:18)
== END 2024-12-01 23:59 | disposition home or self-care (01) ==
LOC: INF 00:58
PROVIDERS: PCP Internal Medicine Hematology; Visit Provider Internal Medicine Hematology
DX: C09.9 Malignant neoplasm of tonsil, unspecified (principal); Z79.899 Other long term (current) drug therapy; Z45.2 Encounter for adjustment and management of vascular access device
CPT/HCPCS: 36591; 80053; 84439; 84443; 85025

== ENCOUNTER 2024-12-08 03:25 | Outpatient (RCR) | payer MEDICARE, SELFPAY ==
[2024-12-08] MEDS: Normal Saline Flush 10 ML SYR IVP (12:59)
[2024-12-08 13:02] LABS: Abs Immature Grans 0.02 10^3/uL (0.0-0.06); HCT 31.6 % (40.0-50.0); HGB 11.0 g/dL (13.5-17.5); Immature Grans % 0.3 %; MCH 33.1 pg (27.0-33.0); MCHC 34.8 % (32.0-36.0); MCV 95 fL (80-95); MPV 8.5 fL (8.0-11.0); Platelet Count 244 10^3/uL (130-400); RBC 3.32 10^6/uL (4.36-5.78); RDW 14.4 % (11.8-14.1); RDW-SD 50.0 fL; WBC 6.80 10^3/uL (4.4-10.8)
[2024-12-08 13:30] LABS: ALT 22 U/L (16-63); AST 25 U/L (15-37); Albumin 3.0 g/dL (3.4-5.0); Alkaline Phosphatase 175 U/L (46-116); Anion Gap 7.6 mmol/L (3-11); BUN 5 mg/dL (7-18); Bilirubin, Total 0.3 mg/dL (0.2-1.0); CO2 25.4 mmol/L (21.0-32.0); Calcium 8.7 mg/dL (8.5-10.1); Chloride 91 mmol/L (98-107); Estimated GFR 117.49 (mL/min/1.73m2); Glucose 107 mg/dL (74-106); Potassium 4.1 mmol/L (3.5-5.1); TSH 0.63 uIU/mL (0.36-3.74); Total Protein 6.9 g/dL (6.4-8.2)
[2024-12-08 13:40] LABS: Sodium 124 mmol/L (136-145)
== END 2025-01-01 23:59 | disposition home or self-care (01) ==
LOC: INF 03:25
PROVIDERS: PCP Internal Medicine Hematology; Visit Provider Internal Medicine Hematology
DX: C09.9 Malignant neoplasm of tonsil, unspecified (principal); Z79.899 Other long term (current) drug therapy; Z45.2 Encounter for adjustment and management of vascular access device
CPT/HCPCS: 36591; 80053; 84439; 84443; 85025

== ENCOUNTER 2025-01-26 08:34 | Outpatient (RCR) | payer MEDICARE, SELFPAY ==
[2025-01-26] MEDS: Normal Saline Flush 10 ML SYR IVP (09:19)
[2025-01-26 09:34] LABS: Abs Immature Grans 0.03 10^3/uL (0.0-0.06); HCT 32.5 % (40.0-50.0); HGB 10.8 g/dL (13.5-17.5); Immature Grans % 0.6 %; MCH 31.2 pg (27.0-33.0); MCHC 33.2 % (32.0-36.0); MCV 94 fL (80-95); MPV 8.2 fL (8.0-11.0); Platelet Count 314 10^3/uL (130-400); RBC 3.46 10^6/uL (4.36-5.78); RDW 13.2 % (11.8-14.1); RDW-SD 45.5 fL; WBC 5.05 10^3/uL (4.4-10.8)
[2025-01-26 10:18] LABS: ALT 28 U/L (16-63); AST 28 U/L (15-37); Albumin 3.1 g/dL (3.4-5.0); Alkaline Phosphatase 165 U/L (46-116); Anion Gap 7.6 mmol/L (3-11); BUN 7 mg/dL (7-18); Bilirubin, Total 0.3 mg/dL (0.2-1.0); CO2 27.4 mmol/L (21.0-32.0); Calcium 8.9 mg/dL (8.5-10.1); Chloride 102 mmol/L (98-107); Estimated GFR 106.14 (mL/min/1.73m2); Glucose 133 mg/dL (74-106); Potassium 4.1 mmol/L (3.5-5.1); Sodium 137 mmol/L (136-145); TSH 0.48 uIU/mL (0.36-3.74); Total Protein 6.8 g/dL (6.4-8.2)
== END 2025-02-01 23:59 | disposition home or self-care (01) ==
LOC: INF 08:34
PROVIDERS: PCP Internal Medicine Hematology; Visit Provider Internal Medicine Hematology
DX: C09.9 Malignant neoplasm of tonsil, unspecified (principal); C18.7 Malignant neoplasm of sigmoid colon; Z79.899 Other long term (current) drug therapy; Z45.2 Encounter for adjustment and management of vascular access device
CPT/HCPCS: 36591; 80053; 84439; 84443; 85025

== ENCOUNTER 2025-02-26 00:47 | Outpatient (RCR) | payer MEDICARE, SELFPAY ==
[2025-02-26] MEDS: Normal Saline Flush 10 ML SYR IVP (10:55)
[2025-02-26 10:56] LABS: Abs Immature Grans 0.03 10^3/uL (0.0-0.06); HCT 35.1 % (40.0-50.0); HGB 11.8 g/dL (13.5-17.5); Immature Grans % 0.5 %; MCH 31.2 pg (27.0-33.0); MCHC 33.6 % (32.0-36.0); MCV 93 fL (80-95); MPV 8.0 fL (8.0-11.0); Platelet Count 268 10^3/uL (130-400); RBC 3.78 10^6/uL (4.36-5.78); RDW 13.3 % (11.8-14.1); RDW-SD 45.2 fL; WBC 6.19 10^3/uL (4.4-10.8)
[2025-02-26 11:19] LABS: ALT 53 U/L (16-63); AST 53 U/L (15-37); Albumin 3.4 g/dL (3.4-5.0); Alkaline Phosphatase 165 U/L (46-116); Anion Gap 4.4 mmol/L (3-11); BUN 9 mg/dL (7-18); Bilirubin, Total 0.5 mg/dL (0.2-1.0); CO2 27.6 mmol/L (21.0-32.0); Calcium 8.8 mg/dL (8.5-10.1); Chloride 102 mmol/L (98-107); Glucose 108 mg/dL (74-106); Potassium 4.4 mmol/L (3.5-5.1); Sodium 134 mmol/L (136-145); TSH 1.26 uIU/mL (0.36-3.74); Total Protein 7.2 g/dL (6.4-8.2)
[2025-02-26 18:34] LABS: CEA 1.1 ng/mL (See Note)
== END 2025-03-03 23:59 | disposition home or self-care (01) ==
LOC: INF 00:47
PROVIDERS: Colon & Rectal Surgery; PCP Internal Medicine Hematology; Visit Provider Internal Medicine Hematology
DX: C09.9 Malignant neoplasm of tonsil, unspecified (principal); C18.8 Malignant neoplasm of overlapping sites of colon; Z79.899 Other long term (current) drug therapy; Z45.2 Encounter for adjustment and management of vascular access device
CPT/HCPCS: 36591; 80053; 82378; 84439; 84443; 85025

== ENCOUNTER 2025-03-26 00:13 | Outpatient (RCR) | payer MEDICARE, SELFPAY ==
[2025-03-09] MEDS: Normal Saline Flush 10 ML SYR IVP (11:58)
[2025-03-09 12:11] LABS: Abs Immature Grans 0.01 10^3/uL (0.0-0.06); HCT 33.4 % (40.0-50.0); HGB 11.3 g/dL (13.5-17.5); Immature Grans % 0.2 %; MCH 31.1 pg (27.0-33.0); MCHC 33.8 % (32.0-36.0); MCV 92 fL (80-95); MPV 8.1 fL (8.0-11.0); Platelet Count 183 10^3/uL (130-400); RBC 3.63 10^6/uL (4.36-5.78); RDW 13.4 % (11.8-14.1); RDW-SD 44.7 fL; WBC 4.26 10^3/uL (4.4-10.8)
[2025-03-09 12:44] LABS: ALT 27 U/L (16-63); AST 25 U/L (15-37); Albumin 3.5 g/dL (3.4-5.0); Alkaline Phosphatase 144 U/L (46-116); Anion Gap 7.3 mmol/L (3-11); BUN 10 mg/dL (7-18); Bilirubin, Total 0.5 mg/dL (0.2-1.0); CO2 25.7 mmol/L (21.0-32.0); Calcium 8.8 mg/dL (8.5-10.1); Chloride 101 mmol/L (98-107); Glucose 114 mg/dL (74-106); Potassium 4.2 mmol/L (3.5-5.1); Sodium 134 mmol/L (136-145); TSH 1.25 uIU/mL (0.36-3.74); Total Protein 6.9 g/dL (6.4-8.2)
[2025-03-26] MEDS: Normal Saline Flush 10 ML SYR IVP (10:02)
[2025-03-26 10:18] LABS: Abs Immature Grans 0.02 10^3/uL (0.0-0.06); HCT 36.6 % (40.0-50.0); HGB 12.5 g/dL (13.5-17.5); Immature Grans % 0.4 %; MCH 31.6 pg (27.0-33.0); MCHC 34.2 % (32.0-36.0); MCV 92 fL (80-95); MPV 8.3 fL (8.0-11.0); Platelet Count 184 10^3/uL (130-400); RBC 3.96 10^6/uL (4.36-5.78); RDW 14.6 % (11.8-14.1); RDW-SD 48.2 fL; WBC 4.71 10^3/uL (4.4-10.8)
[2025-03-26 10:47] LABS: ALT 22 U/L (16-63); AST 20 U/L (15-37); Albumin 3.7 g/dL (3.4-5.0); Alkaline Phosphatase 146 U/L (46-116); Anion Gap 10.2 mmol/L (3-11); BUN 9 mg/dL (7-18); Bilirubin, Total 0.5 mg/dL (0.2-1.0); CO2 26.8 mmol/L (21.0-32.0); Calcium 9.2 mg/dL (8.5-10.1); Chloride 98 mmol/L (98-107); Glucose 103 mg/dL (74-106); Potassium 4.4 mmol/L (3.5-5.1); Sodium 135 mmol/L (136-145); TSH 1.05 uIU/mL (0.36-3.74); Total Protein 7.4 g/dL (6.4-8.2)
== END 2025-04-03 23:59 | disposition home or self-care (01) ==
LOC: INF 00:13
PROVIDERS: PCP Internal Medicine Hematology; Visit Provider Internal Medicine Hematology
DX: C09.9 Malignant neoplasm of tonsil, unspecified (principal); E46 Unspecified protein-calorie malnutrition; Z45.2 Encounter for adjustment and management of vascular access device
CPT/HCPCS: 36591; 80053; 84439; 84443; 85025

== ENCOUNTER 2025-04-20 13:00 | Outpatient (RCR) | payer MEDICARE, SELFPAY ==
[2025-04-09 10:38] LABS: Abs Immature Grans 0.01 10^3/uL (0.0-0.06); HCT 36.7 % (40.0-50.0); HGB 12.7 g/dL (13.5-17.5); Immature Grans % 0.2 %; MCH 32.0 pg (27.0-33.0); MCHC 34.6 % (32.0-36.0); MCV 92 fL (80-95); MPV 8.1 fL (8.0-11.0); Platelet Count 201 10^3/uL (130-400); RBC 3.97 10^6/uL (4.36-5.78); RDW 15.1 % (11.8-14.1); RDW-SD 51.2 fL; WBC 5.97 10^3/uL (4.4-10.8)
[2025-04-09 11:04] LABS: ALT 19 U/L (16-63); AST 15 U/L (15-37); Albumin 3.6 g/dL (3.4-5.0); Alkaline Phosphatase 189 U/L (46-116); Anion Gap 8.0 mmol/L (3-11); BUN 9 mg/dL (7-18); Bilirubin, Total 0.3 mg/dL (0.2-1.0); CO2 27.0 mmol/L (21.0-32.0); Calcium 9.3 mg/dL (8.5-10.1); Chloride 99 mmol/L (98-107); Estimated GFR 86.70 (mL/min/1.73m2); Glucose 100 mg/dL (74-106); Potassium 4.2 mmol/L (3.5-5.1); Sodium 134 mmol/L (136-145); TSH 0.76 uIU/mL (0.36-3.74); Total Protein 7.4 g/dL (6.4-8.2)
[2025-04-09] MEDS: Normal Saline Flush 10 ML SYR IVP (14:29)
[2025-04-20] MEDS: Normal Saline Flush 10 ML SYR IVP (13:10)
[2025-04-20 13:42] LABS: Abs Immature Grans 0.02 10^3/uL (0.0-0.06); HCT 37.2 % (40.0-50.0); HGB 12.8 g/dL (13.5-17.5); Immature Grans % 0.5 %; MCH 31.6 pg (27.0-33.0); MCHC 34.4 % (32.0-36.0); MCV 92 fL (80-95); MPV 7.9 fL (8.0-11.0); Platelet Count 261 10^3/uL (130-400); RBC 4.05 10^6/uL (4.36-5.78); RDW 15.0 % (11.8-14.1); RDW-SD 49.5 fL; WBC 4.43 10^3/uL (4.4-10.8)
[2025-04-20 13:56] LABS: ALT 16 U/L (10-49); AST 25 U/L (<34); Albumin 4.2 g/dL (3.4-5.0); Alkaline Phosphatase 205 U/L (46-116); Anion Gap 7 mmol/L (3-11); BUN 13 mg/dL (9-23); Bilirubin, Total 0.40 mg/dL (0.2-1.2); CO2 25.0 mmol/L (20.0-31.0); Calcium 9.1 mg/dL (8.3-10.6); Chloride 101 mmol/L (98-107); Glucose 112 mg/dL (74-106); Potassium 4.4 mmol/L (3.5-5.1); Sodium 133 mmol/L (136-145); Total Protein 7.2 g/dL (5.7-8.2)
[2025-04-20 13:58] LABS: TSH 1.19 uIU/mL (0.55-4.78)
== END 2025-05-03 23:59 | disposition home or self-care (01) ==
LOC: INF 13:00
PROVIDERS: PCP Internal Medicine Hematology; Visit Provider Internal Medicine Hematology
DX: C18.7 Malignant neoplasm of sigmoid colon (principal); E46 Unspecified protein-calorie malnutrition; Z79.899 Other long term (current) drug therapy; Z45.2 Encounter for adjustment and management of vascular access device
CPT/HCPCS: 36591; 80053; 84439; 84443; 85025